=== PATIENT | female | born 1945 | race Caucasian/White ===

== ENCOUNTER → 2022-10-09 | Outpatient (CLI) | payer MEDICARE, SELFPAY ==
--- NOTE | 2022-10-09 08:28 | PCM.PR.HP ---
History of Present Illness Arrival date:: 10/09/22 Arrival time:: 08:30 - Scheduled at 8:00 am Date of Referral:: 10/03/22 Date of Evaluation: 10/09/22 Referring Physician: Dr. Melly Berman Primary Diagnosis: COPD [facility] Breathless Scale: When is the patient short of breath? Y/N Grade: Description of Breathlessness: 0 I only get breathless with strenuous exercise. 1 I get short of breath when hurrying on level ground or walking up a slight hill. 2 On level ground, I walk slower than people of the same age because of breathless, or have to stop for breath when walking at my own pace. 3 I stop for breath after walking 100 yards or after a few minutes on level ground. 4 I am too breathless to leave the house or I am breathless when dressing. Respiratory Problems: Yes: Fatigue, Wheezing, Able to Speak in Full Sentences, Dyspnea with Activity, Dyspnea Lying Down Flat No: Ankle Swelling, Hoarseness, Anxiety, Panic, Dyspnea at Rest, Cough with Secretions - Secretions Thick:: No Thin:: No Cough:: No Hx of Sleep Apnea: No Do you snore loudly (louder than talking or can be heard through closed doors)?: Yes Do you often feel tired/ fatigued/ sleepy during daytime?: No Has anyone observed you stop breathing during sleep?: No History of Hypertension (for STOP score): Yes STOP Results: Positive Home Medications: Home Medications albuterol 90 mcg/actuation aerosol inhaler mcg inhalation 10/09/22 fluticasone fur. 100 mcg-umeclid 62.5 mcg-vilant 25 mcg inhalat.powder (Trelegy Ellipta) 1 inh inhalation DAILY 10/09/22 levothyroxine 112 mcg tablet (Synthroid) 112 mcg PO DAILY 10/09/22 losartan 100 mg-hydrochlorothiazide 12.5 mg tablet (Hyzaar) 1 tab PO DAILY 10/09/22 multivitamin tab 10/09/22 vitamin B complex 1 tab PO DAILY 10/09/22 Allergies/Adverse Reactions: Allergies No Known Allergies Allergy (Verified 10/09/22 08:44) Medical Utilization Do you use a peak flow meter at home?: No Do you use a spacer device with your inhalers?: No Number of hospital visits in the last year?: 1 - vaginal prolapse Number of emergency room visits in the last year?: 0 Do you see your physician on a regular schedule?: Yes How often?: PCP 4 months; Dr. Berman 4 months Advanced Directives - Advanced Directives Power of Cue Worker: Yes Living Will: Yes Advance Directives Information Provided: No Advance Directives on File: No DNR Order?:: No - MOLST See MOLST form: No Past Medical History - Covid-19 Screening Fever: No Unexplained muscle aches: No Current respiratory symptoms: Yes - Related to her COPD Upper respiratory infections symptoms: No Gastro-intestinal symptoms: No [facility]-[place] symptoms: No Has tested positive for COVID-19 in last 30 days: Yes Date of testin10/09/22 - All vaccinated; Had COVID 3 weeks ago (mild case) Had contact w/person w/symptoms or Covid-19 (+) last 14 days: No Has High Risk Exposures ID'd by Health dept/Inf Control team: No 65 years or older:: Yes Lives in Assisted Living facility:: No Has a chronic lung disease or moderate to severe asthma:: Yes Has a serious heart condition:: No Immunocompromised:: No Severely obese (Body Mass Index of 40 or higher):: No Diabetic:: No Has chronic kidney disease undergoing dialysis:: No Has liver disease:: No Medical History: Past Medical History (Last Updated 10/09/22 @ 08:40 by Kevin Curtis CRT, DIESEL MECHANIC APPRENTICE, BS) 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 COPD (chronic obstructive pulmonary disease) J44.9 Former light cigarette smoker (1-9 per day) Z87.891 Hypertension I10 Hypothyroidism E03.9 Leukopenia D72.819 Mixed hyperlipidemia E78.2 Osteoarthritis M19.90 Osteopenia M85.80 Pulmonary nodule R91.1 Uterine prolapse N81.4 Surgical History: Past Surgical History (Last Updated 10/09/22 @ 08:47 by Kevin Curtis, SUSAN, DIESEL MECHANIC APPRENTICE, BS) H/O adenoidectomy Z90.89 H/O colonoscopy Z98.890 History of bilateral ligation of fallopian tubes Z98.51 Hx of tonsillectomy Z90.89 Family History: Family History (Last Updated 10/09/22 @ 08:49 by Kevin Curtis, HERBICIDE SPRAYER, DIESEL MECHANIC APPRENTICE, BS) Father COPD (chronic obstructive pulmonary disease) Sister COPD (chronic obstructive pulmonary disease) Mother Lung cancer Hypertension Social History - Smoking History Smoking Status: Former smoker Years Smokin Packs Smoked per Day: 0.5 Hx Smoking Cessation Date: 06/18/01 Hx Tobacco Use: Yes Hx Smoking Exposure: Yes - Alcohol Use Alcohol Usage: Yes - 2.0 standard drinks; 2-shots liquor per week. - Substance Abuse Hx Substance Use: No - Occupation Occupation (List type of work in comments):: Retired - Hobbies, Recreation, Social Activities Hobbies: Sewing - crocheting, gardening, crafts and enjoy cooking, Exercise - smal weights 3-times per week, aerobics outside work gardening, Other Recreational Activities: I am able to engage in most, but not all activities Functioning ADL/IADL - Current Ability Current Ability: Independent Self-Care (e.g.,grooming, dressing, & bathing), Independent Ambulation, Independent Transfer, Independent Household tasks (e.g., light meal prep, laundry, shopping) - Pt Functioning Prior to Problem Prior Functioning: Self-Care (e.g.,grooming, dressing, & bathing): Independent, Ambulation: Independent, Transfer: Independent, Household tasks (e.g., light meal prep, laundry, shopping): Independent Social Environment - Status Marital Status: - significant other - Current Living Arrangements Living Environment:: Spouse - Children How many children do you have?: 3 Do any of your children live nearby?: Yes - daughter is local to [facility] - Safety Do you feel safe in your surroundings?: Yes - Assistance Do you need any assistance at home?: No Review of Systems Review of Systems: Right click = Denies (Slash). Left click = Reports ([place]) Respiratory: Reports: SOB upon Exertion, Wheezing, Appetite, Normal, Fatigue, Sleep, Normal. Denies: Cough, SOB at Rest, Sputum production, Dizziness/Lightheadedness, PVD, Sexual changes Is Patient Pain Free?: Yes Pain Location: none Pain Level: 0/10 Risk Factor Assessment - Vital Signs Temperature: 98.7 F Pulse Rate: 94 Pulse Rhythm: Regular Respiratory Rate: 18 Pulse Ox: 97 Blood Pressure: 122/80 - Diabetes Nutrition Referral for Diabetes: No - Obesity Height: 5 ft 1 in Weight:: 102 lb Weight in Pounds: 102.0 lbs Body Mass Index (BMI): 19.3 Nutritional Referral for Obesity: No - Physical Activity Physical Inactivity: Recreational activity - Risk Stratification Risk Guidelines: Lowest Risk: Risk Factor for Smoking, Risk Factor for Dyslipidemia, Risk Factor for Diabetes, Risk Factor for Hypertension, Risk Factor for Sedentary Lifestyle, Risk Factor for Depression, Highest Risk: Risk Factor for Obesity - Refer to Nutritional Services for Underweight & Weight Supplements or weight gain. Motivation - Motivation to Participate On a scale of 1 to 10, how prepared are you to commit to attending program?: 10 What do you see as barriers to successfully being able to complete the program?: none What do you see as the benefits of succesfully completing the program? In other words, what do you hope to get out of participating in the program?: improve my health Are there issues you are dealing with that will interfere with completing the program?: Pre-planned vacations that will interuppt her participation Do you have a spouse or signficant other, family or friends who will help support you to complete the program?: Yes Diagnostic Data Review - Pulmonary Function Test FEV1:: 0.59 FVC:: 2.07 FEV1/FVC%:: 28 Gold Classification: GOLD class III(severe COPD)with FEV1/FVC<70, 30%</=FEV1< 50% predicted
--- NOTE | 2022-10-09 08:29 | PCM.PR.TP ---
General Information2 - General Information Admitting Diagnosis: COPD Secondary Diagnosis: Hypertension, Hypothyroidism, Mixed Hyperlipidemai - PFT FEV1:: 0.59 FVC:: 2.07 - 86% FEV1/FVC%:: 28 - Personal Learning Style/Barriers Personal Learning Style:: Audio/Visual Barriers to Learning: Vision impaired - macular degeneration & nerve palsey left eye. Stage of change r/t lifestyle modifications: Contemplation Educational Classes LA: Living with Chronic Lung Disease: Initial Assessment, Breathing Retraining: Initial Assessment, Energy Conservation: Initial Assessment, Nutrition: Initial Assessment - underweight - Education/Goals Individual Counseling: Initial Assessment: Nicotine/Smoking - supportive recently quit smoking, High Blood Pressure LA Patient Goals: Increase muscle strength: Initial Assessment, Experience less dyspnea: Initial Assessment, Improve energy level: Initial Assessment, Participate in home exercise: Initial Assessment, Improve the ability to cope with ADLs: Initial Assessment, Improve knowledge of lung disease: Initial Assessment, Improve diet and nutrition: Initial Assessment, Improve my quality of life: Initial Assessment Exercise - Initial Assessment - Visit Date of Eval: 10/09/22 Session Number:: 0 - Pre-LA evaluation - Problem/Goals Problems: Deconditioning, No regular exercise Goals:: Aerobic exercise 30-60 mins x 12 weeks [36 sessions] - Functional Capacity Test Number of feet walked: 0 - results not avialable - Physician Prescribed Exercise Modalities: Treadmill, Airdyne, NuStep Frequency (days/week): 3 Duration (Minutes):: 30-45 Intensity: 60-80% of age predicted maximum heart rate reserve Current METSs:: 3.0 Target HR:: 108 - THRR 94-108 for 3-4 weeks Resting Blood Pressure: 122/80 EKG Type: Sinus rhythm - Plan Plan and Plan to Review:: Benefits of exercise, Core components of exercise, How to measure dyspnea level, How to monitor dyspnea level, Exercise intensity, Exercise safety guideline, Home exercise guidelines, Carol: 3-4/11-13 Home Exercise Mode: Walking Nutrition/Wt Mgmt - Initial - Visit Date of Eval: 10/09/22 Session Number:: 0 - Pre-LA evaluation - Problems/Goals Problems: Underweight Goals: BMI 21-25 - Weight Management Knowledge Deficit Management of:: Underweight Admit Height:: 5 ft 1 in Admit Weight:: 102 lb Admit BMI:: 19.3 - Intervention Referral to dietitian:: Yes - Medical Nutrition & Supplements Weight Gain Will attend diet classes:: Yes Intervention/Plan: Instruct on ideal BMI & set weight loss goal w/patient - Plan Nutrition Plan: Yes Review BMI or WC & identify target wt & strategies for wt control, Yes Nutrition education class:, Yes Weight control education class: - Nutritonal Service Program Psychosocial - Initial Assess - Visit Date of Eval: 10/09/22 Session Number:: 0 - LA - Problems/Goals History of Emotional Disorders: None - Psychosocial Test Tool Used:: Pulmonary QOL, PHQ-9 Questionnaire - Referral to Behavioral Health PS - Interventions: Yes Attend Stress Management Classes, No Referral to Behavioral Health if PHQ-9 score >9:, No Referral to [facility], No Referral to Physician if PHQ-9 if score is 5-9: - Intervention/Plan: See List Interventions/Plan:: Assess stressors,coping strategies & signs of derpression on admission, Instruct/assist pt to develop coping & personal stress Mgt strategies, Instruct patient to recognize signs & symptoms of depression, Instruct patient to recog Oxygen & Oxygen Titration Init - Visit Date of Eval: 10/09/22 Session Number:: 0 - Pre-LA evaluation - Initial Assessment Oxygen on Admission: None SpO2:: 97 Patient Reports:: No cough - Goal Oxygen & Oxygen Tritration Goals: Effective hypoxemia control - Plans Plan: Monitor SpO2 rest & with exercise Reviewed prescribed medications:: Purpose, Schedule, Side effects, Importance of compliance Instruct correct technique/timing & care:: MDI, DPI, Return demo use of inhaler Bronchial Hygiene Plan: Hydration, When to call MD, Signs/symptoms to report: Core Components - Initial - Visit Date of Eval: 10/09/22 Session Number:: 0 - Pre-LA Evaluation - Hypertension Hypertension Diagnosis:: Hypertension ICD-10 I10 BP: 122/80 [employer] Hypertension Guidelines: [place] [employer] Hypertension Guidelines. Normal BP Less than 120/80. Elevated BP 120/80. Hypertension Stage 1: BP 130-139/80-89. Hypertesnion Stage 2: BP 140 or higher/90 or higher. Hypertension Crisis: BP higher than 180/120 Blood Pressure: 122/80 Outcomes/Goals: Able to verbalize/achieve optimal blood pressure <130/80, Incorporates diet changes & exercise for blood pressure control by DC - Tobacco - Initial Assessment Tobacco Program Goals: Complete smoking cessation. Attend education classes. Improve Knowledge Test score Stages of Change:: Action Learning Barriers: Vision Do you have family support?: Yes Tobacco Use: Cigarettes - Former How long ago did you quit using tobacco products?: Greater than or equal to 6 months ago - Quit smoking 06/18/2001 How many cigarettes do you smoke per day?: 0.5 Years Smokin Do you use smokeless tobacco?: No Smoking Cessation Referral:: No Individual Education/Counseling:: Yes Gave Education Materials For:: Pulmonary Disease, Risk Factors, Breathing Techniques, Medical Compliance, Pulmonary A&P, Exacerbation Signs & Symptoms, Stress & Relaxation - Exacerbation Mgmt & Airway Clearance Problems:: No home O2 Hypoxemia Goals:: Hypoxemia managed - Medication Interventions/plans: Instruct on medication effects & side effects, Review medication list w/patient every two weeks, Instruct importance of taking meds as ordered & assist problem solving Medication Goals: Adherence to prescribed medications, Correct technique/timing & care of MDI, DPI, nebulizer, and spacer. Medications: Yes MDI, Yes DPI Reviewed prescribed medications:: Purpose, Schedule, Side effects, Importance of compliance - Diabetes Diabetes:: No Core Components - 30 DAYS Core Components - 60 DAYS Core Components - 90 DAYS Core Components - Final Patient Health Questionnaire Initial Assessment 1. Little interest or pleasure in doing things: Several days 2. Feeling down, depressed, or hopeless: Not at all 3. Trouble falling or staying asleep, or sleeping too much: Not at all 4. Feeling tired or having little energy: Several days 5. Poor appetite or overeating: Not at all 6. Feeling bad about yourself -- or that you are a failure or have let yourself or your family down: Several days 7. Trouble concentrating on things, such as reading the newspaper or watching television: Not at all 8. Moving or speaking so slowly that other people could have noticed. Or the opposite - being so fidgety or restless that you have been moving around a lot more than usual: Not at all 9. Thoughts that you would be better off , or of hurting yourself in some way: Not at all How difficult have these problems made it for you to do your work, take care of things at home, or get along with other people?: Somewhat difficult Total Score: 3 Knowledge Questionaire (BCKQ) - Information Information: [place] COPD Knowledge Questionnaire (BCKQ) This questionnaire is designed to find out what you know about your lung problem. It should be completed without help form anyone else. This usually takes between 10 and 20 minutes. Your answers will help us to find out what information you need to help you to understand and manage your lung condition. [place] which you think is the correct answer. - Questions b. COPD can only be confirmed by breathing tests: True c. In COPD ther is usually gradual worsening over time: True d. In COPD oxygen levels in the blood are always low: False e. COPD is usually in people less than 40 years old: Don't know Sandra than 80% of COPD cases are caused by cigarette smoking: True b. COPD can be caused by occupational dust exposure: True c. Longstanding asthma can develop into COPD: Don't know d. COPD is commonly an inherited disease: Don't know e. Women are less vunerable to the effects of cigarette than men: Don't know a. Swelling of the ankles is common in COPD:: False b. Fatigue [tiredness] is common in COPD: False c. Wheezing is common in COPD: True d. Crushing chest pain is common in COPD: False e. Rapid weight loss is common in COPD: False a. Severe breathlessness prevents travel by air: False b. Breathlessness can be worsened by eating large meals: True c. Breathlessness means that your oxygen levels are low: False d. Breathlessness is a normal response to exercise: False e. Breathlessness is primarily caused by a narrowing of the bronchial tubes: Don't know a. Coughing phlegm is a common symptom in COPD: False b. Clearing phlegm is more difficult if you get dehydrated: Don't know c. Bronchodilator inhalers can help clear phlegm: True d. Phlegm causes harm if swallowed: Don't know e. Clearing phlegm can be assisted by breathing exercises: Don't know a. Chest infections often cause coughing of blood: Don't know b. Chest infection phlegm usually becomes coloured (ylw/grn): True cExerbations (episodes of worsening) can occur in the absence of chest infection: True d. Chest infections are always accompanied by a high temperature: Don't know e. Steroid tablets should be taken whenever there is an exacerbation: False aWalking excercises better than breathing to improve fitness: Don't know b. Exercise should be avoided as it strains the lungs: False c. Exercise can help maintain your bone density: True d. Exercise helps relieve depression: True e. Exercise should be stopped if it makes you breathless: True a. Stopping smoking will reduce the risk of heart disease: True b. Stopping smoking will slow down further lung damage: False c. Stopping smoking is pointless as the damage is done: False d.Stopping smoking usually results in improved lung function: True eNicotine replacement therapy only available on prescription: False a. A flu jab is recommended every year: True b. You can get flu from having a flu jab: False c. You can only have a flu jab if you are 65 or over: False d. A pneumonia jab protects against all forms of pneumonia: True e.You can have a pneumonia jab and a flu job on the same day: Don't know a. Bronchodilators act quickly (within 10 minutes): Don't know b. Both short & long acting bronchodilators can be taken on the same day: True c. Spacers (volumatic,nebuhaler,serochamber)should be dried w/atowel after washing: Don't know d. A spacer device increases the medication to the lungs: Don't know e. Tremor may be a side effect of bronchodilators: Don't know a. To be effective, the course should last at least 10 days: True b. Excessive use of antibiotics can cause resistant bacteria (germs): True c. Antibiotics will clear all chest infections: False d. Antibiotic treatment is necessary for an exacerbation (worsening) however mild: Don't know e. Seek advice if antibiotics cause severe diarrhoea: True a. Steroid tablets help strengthen muscles: Don't know b. Steroid tablets should be avoided if there is a chest infection: Don't know c. The risk of long-term side effects due to steroids is less w/short courses then w/continous treatment: Don't know dIndigestion is common side effect from using steroid tablet: Don't know e. Steroid tablets can increase your appetite: Don't know a. Inhaled steroids should be stopped if you are given steroid tablets: Don't know bSteroid inhalers can be used for rapid relief breathlessnes: True c. Spacer devices reduce the risk of getting thrush in the mouth: Don't know d.Steroid inhaler should be taken before your bronchodilator: True e. Inhaled steroids improve lung function in COPD: True COPD Assessment Test [CAT] - Questions Never cough = 0, Cough all the time = 5: 1 No phlegm = 0, Chest full of phlegm = 5: 0 No chest tightness = 0, Chest very tight = 5: 0 No breathless w/exertion = 0, Very breathless w/exertion = 5: 5 No limitations w/activity = 0, Very limited w/activity = 5: 1 Confident leaving home = 0, Not at all confident = 5: 0 Sleep soundly = 0, Don't sleep soundly = 5: 0 Lots of energy = 0, No energy at all = 5: 1 Total CAT score:: 8 Self-Efficacy Initial Assessment We would like to know how confident you are in doing certain activities. Please select your confidence level for:: Select your confidence level for the following using the scale 1-10 where 1 is not at all confident and 10 is totally confident. Your score is the average of all 6 responses. Fatigue: How confident are you that you can keep the fatigue caused by your disease from interfering with the things you want to do? Select Number: 2 Physical Discomfort or Pain: How confident are you that you can keep the physical discomfort or pain of your disease from interfering with the things you want to do? Select Number: 2 Emotional Distress: How confident are you that you can keep the emotional distress caused by your disease from interfering with the things you want to do? Select Number: 9 Other Symptoms or Health Problems: How confident are you that you can keep other symptoms or health problems from interfering with the things you want to do? Select Number: 8 Different Tasks and Activities: How confident are you that you can do the different tasks and activities needed to manage your health condition so as to reduce your need to see a doctor? Select Number: 8 Medication: How confident are you that you can do things other than just taking medication to reduce how much your illness affects your everyday life? Select Number: 9 Total Score:: 6 Nutrition Survey - Nutrition Survey Initial Have you lost >10 lbs over the past 2 months without trying?: Yes Are you following a special diet at home for diabetes, low fat, or low salt?: No Are you interested in meeting with a dietitian for help understanding your diet?: No Do you eat less than 3 meals a day?: No Do you eat fatty meats (frank, sausage, ribs, etc), fried foods, desserts, large amounts of salad dressings, margarine, butter, or cheese most days?: No Do you have food allergies? [Enter types in comment field]: No Do you eat in restaurants more than 3 times a week?: No Do you season food with salt, seasoning salt, or garlic salt?: No Do you used canned, boxed, frozen meals, or soups, seasoning packets?: No Total Score:: 1
[2022-10-09 09:18] VITALS: BP 122/80; PULSE 94; RESP 18; TEMP 37.1; O2SAT 97; BMI 19.3
[2022-10-09 09:50] VITALS: BP 122/80; O2SAT 97; BMI 19.3
== END | disposition home or self-care (01) ==
LOC: PR 08:18
PROVIDERS: PCP Internal Medicine
DX: J44.9 Chronic obstructive pulmonary disease, unspecified (principal); E03.9 Hypothyroidism, unspecified; E78.2 Mixed hyperlipidemia

== ENCOUNTER 2022-10-13 10:30 | Outpatient (RCR) | payer MEDICARE, SELFPAY | END 2022-10-15 23:59 | LOC: PR 10:30 | PROVIDERS: PCP Internal Medicine | DX: J44.9 Chronic obstructive pulmonary disease, unspecified (principal) | CPT/HCPCS: 97150; 94626 ==

== ENCOUNTER 2022-11-15 10:30 | Outpatient (RCR) | payer MEDICARE, SELFPAY ==
--- NOTE | 2022-11-08 08:32 | PR.ITP_ITS ---
Exercise - 30-Day Assessment - Visit Date of Eval: 11/08/22 Session Number:: 12 - Physician Prescribed Exercise Modalities: Treadmill, Biodyne, NuStep Frequency (days/week): 3 Duration (Minutes):: 30-45 Intensity: 60-80% of age predicted maximum heart rate reserve Aerobic Exercise [30-60 min 3-7x/week]:: Progressing - mets increasing Current METSs:: 3 Current RPD:: 12-14 Maximum Exercise HR:: 106 Resting Blood Pressure: 138/56 Maximum Exercise Blood Pressure: 138/56 Minimum SpO2 with exercise: 93 EKG Type: SR to ST with occas PVC's Current Minutes of Exercise: 30-45 - Home Exercise Home Exercise:: No Nutrition/Wt Mgmt - 30-Day - Visit Date of Eval: 11/08/22 Session Number:: 12 - Weight Management Height: 5 ft 1 in Weight:: 46.72 kg BMI: 19.4 Weight Goals Progress:: Progressing - Pt is underweight. instructed on ideal BMI Psychosocial - 30-Day - Visit Date of Eval: 11/08/22 Session Number:: 12 - Problems/Goals History of Emotional Disorders: None Oxygen & Oxygen Titration 30D - Visit Date of Eval: 11/08/22 Session Number:: 12 - Reassessment Reassessment- 30 Days: Demonstrate knowledge of O2 Rx at rest & w/exercise Core Components - Initial Core Components - 30 DAYS - Visit Date of Eval: 11/08/22 Session Number:: 12 - Hypertension Hypertension Diagnosis:: Hypertension ICD-10 I10 Resting Blood Pressure:: 138/56 [place] [employer] Hypertension Guidelines: [place] [employer] Hypertension Guidelines. Normal BP Less than 120/80. Elevated BP 120/80. Hypertension Stage 1: BP 130-139/80-89. Hypertesnion Stage 2: BP 140 or higher/90 or higher. Hypertension Crisis: BP higher than 180/120 Peak Exercise Blood Pressure:: 138/56 Outcomes/Goals: Able to verbalize/achieve optimal blood pressure <130/80, Incorporates diet changes & exercise for blood pressure control by DC, Other additional outcomes/goals Interventions/plan: Instruct on optimal blood pressure, hypertension & medications, Instruct on effects of sodium, alcohol, stress, exercise &hypertension, Other additional plan/interventions 30 day Reassessments:: Progressing - encouraged to take meds - Medication Medication list reviewed:: Yes - Diabetes Diabetes:: No - Heart Failure Documenting weight stacie: Yes Core Components - 60 DAYS Core Components - 90 DAYS Core Components - Final Patient Health Questionnaire 30-Day Re-eval Assessment 1. Little interest or pleasure in doing things: Several days 2. Feeling down, depressed, or hopeless: Not at all 3. Trouble falling or staying asleep, or sleeping too much: Not at all 4. Feeling tired or having little energy: Several days 5. Poor appetite or overeating: Not at all 6. Feeling bad about yourself -- or that you are a failure or have let yourself or your family down: Several days 7. Trouble concentrating on things, such as reading the newspaper or watching television: Not at all 8. Moving or speaking so slowly that other people could have noticed. Or the opposite - being so fidgety or restless that you have been moving around a lot more than usual: Not at all 9. Thoughts that you would be better off , or of hurting yourself in some way: Not at all How difficult have these problems made it for you to do your work, take care of things at home, or get along with other people?: Somewhat difficult Total Score: 3 Knowledge Questionaire (BCKQ) - Information Information: [facility] COPD Knowledge Questionnaire (BCKQ) This questionnaire is designed to find out what you know about your lung problem. It should be completed without help form anyone else. This usually take s between 10 and 20 minutes. Your answers will help us to find out what information you need to help you to understand and manage your lung condition. Isac the [place] which you think is the correct answer. Self-Efficacy 30-Day Re-eval Assessment We would like to know how confident you are in doing certain activities. Please select your confidence level for:: Select your confidence level for the following using the scale 1-10 where 1 is not at all confident and 10 is totally confident. Your score is the average of all 6 responses. Fatigue: How confident are you that you can keep the fatigue caused by your disease from interfering with the things you want to do? Select Number: 2 Physical Discomfort or Pain: How confident are you that you can keep the physical discomfort or pain of your disease from interfering with the things you want to do? Select Number: 2 Emotional Distress: How confident are you that you can keep the emotional distress caused by your disease from interfering with the things you want to do? Select Number: 9 Other Symptoms or Health Problems: How confident are you that you can keep other symptoms or health problems from interfering with the things you want to do? Select Number: 8 Different Tasks and Activities: How confident are you that you can do the different tasks and activities needed to manage your health condition so as to reduce your need to see a doctor? Select Number: 8 Medication: How confident are you that you can do things other than just taking medication to reduce how much your illness affects your everyday life? Select Number: 9 Total Score:: 6 Nutrition Survey
[2022-11-08 08:43] VITALS: BP 138/56; O2SAT 93; BMI 19.4
== END 2022-11-15 23:59 ==
LOC: PR 10:30
PROVIDERS: PCP Internal Medicine
DX: J44.9 Chronic obstructive pulmonary disease, unspecified (principal)
CPT/HCPCS: 97150; 94626

== ENCOUNTER 2022-12-15 10:30 | Outpatient (RCR) | payer MEDICARE, SELFPAY ==
[2022-11-08 08:43] VITALS: BMI 19.4
[2022-11-16 00:41] VITALS: BP 138/56
--- NOTE | 2022-12-08 08:31 | PR.ITP_ITS ---
Exercise - 60-Day Assessment - Visit Date of Eval: 12/08/22 Session Number:: 18 - Patient has been absent since 12/01/2022 due to exacerbation, respiratory infection. - Physician Prescribed Exercise Modalities: Treadmill, Biodyne, NuStep Frequency (days/week): 3 Duration (Minutes):: 30-45 Intensity: 60-80% of age predicted maximum heart rate reserve Aerobic Exercise [30-60 min 3-7x/week]:: Progressing Carol-13 Current METSs: 3.5 Target HR:: 108 - THRR 94-108 Current RPD:: 2-3 Maximum Exercise HR:: 106 Resting Blood Pressure: 136/84 Maximum Exercise Blood Pressure: 156/86 Minimum SpO2 with exercise: 92 EKG Type: NSR to sinus tachycardia with rare PAC Current Minutes of Exercise: 35-45 - Home Exercise Home Exercise:: No Nutrition/Wt Mgmt - 60-Day - Visit Date of Eval: 12/08/22 Session Number:: 19 - Weight Management Weight Assessment:: BMI 21 to 25 Height: 5 ft 1 in Weight:: 104 lb 8 oz BMI: 19.7 Weight Goals Progress:: Progressing - meeting with nutritional services Psychosocial - 60-Day - Visit Date of Eval: 12/08/22 Session Number:: 19 - Problems/Goals History of Emotional Disorders: Depression Depression:: Self report - Psychosocial Test Tool Used:: PHQ-9 Questionnaire - Referral to Behavioral Health PS - Interventions: Yes Attend Stress Management Classes, No Referral to Behavioral Health if PHQ-9 score >9:, No Referral to [facility], No Referral to Physician if PHQ-9 if score is 5-9: - Plan Interventions/Plan:: Assess stressors,coping strategies & signs of derpression on admission, Instruct/assist pt to develop coping & personal stress Mgt strategies, Instruct patient to recognize signs & symptoms of depression, Instruct patient to recog Oxygen & Oxygen Titration 60D - Visit Date of Eval: 12/08/22 Session Number:: 19 - Reassessment Reassessment- 60 Days: Demonstrate knowledge of O2 Rx at rest & w/exercise Breath Sounds:: Crackles, Insp. & Exp. Wheezing SpO2:: 97 - room air at rest Exacerbation Date: 12/01/22 - started on antibiotic and tapered dose prednisone Core Components - Initial Core Components - 30 DAYS Core Components - 60 DAYS - Visit Date of Eval: 12/08/22 Session Number:: 19 - Hypertension Hypertension Diagnosis:: Hypertension ICD-10 I10 Resting Blood Pressure:: 136/84 [place] [employer] Hypertension Guidelines: [place] [employer] Hypertension Guidelines. Normal BP Less than 120/80. Elevated BP 120/80. Hypertension Stage 1: BP 130-139/80-89. Hypertesnion Stage 2: BP 140 or higher/90 or higher. Hypertension Crisis: BP higher than 180/120 Peak Exercise Blood Pressure:: 158/80 Change in medication: No Outcomes/Goals: Able to verbalize/achieve optimal blood pressure <130/80, Incorporates diet changes & exercise for blood pressure control by DC Interventions/plan: Instruct on optimal blood pressure, hypertension & medications, Instruct on effects of sodium, alcohol, stress, exercise &hypertension 60 day Reassessments:: Progressing - Exacerbation Mgmt & Airway Clearance Reassessment: Demonstrates knowledge of O2 Rx at rest, Demonstrates knowledge of O2 Rx with exercise Bronchial Hygiene Plan: Yes Pt demonstrates correctly for effective cough, Yes Pt demo correct for improved hydration, Yes Pt demo correct for hand hygiene, Yes Pt demo correct for verbalize when to call MD - Medication Medication list reviewed:: Yes Taking medications 100% of the time:: Met - Diabetes Diabetes:: No - Heart Failure Documenting weight stacie: No Core Components - 90 DAYS Core Components - Final Patient Health Questionnaire 60-Day Re-eval Assessment 1. Little interest or pleasure in doing things: Several days 2. Feeling down, depressed, or hopeless: Not at all 3. Trouble falling or staying asleep, or sleeping too much: Not at all 4. Feeling tired or having little energy: Several days 5. Poor appetite or overeating: Not at all 6. Feeling bad about yourself -- or that you are a failure or have let yourself or your family down: Several days 7. Trouble concentrating on things, such as reading the newspaper or watching television: Not at all 8. Moving or speaking so slowly that other people could have noticed. Or the opposite - being so fidgety or restless that you have been moving around a lot more than usual: Not at all 9. Thoughts that you would be better off , or of hurting yourself in some way: Not at all How difficult have these problems made it for you to do your work, take care of things at home, or get along with other people?: Not difficult at all Total Score: 3 Knowledge Questionaire (BCKQ) - Information Information: [place] COPD Knowledge Questionnaire (BCKQ) This questionnaire is designed to find out what you know about your lung problem. It should be completed without help form anyone else. This usually takes between 10 and 20 minutes. Your answers will help us to find out what information you need to help you to understand and manage your lung condition. Isac the [place] which you think is the correct answer. Self-Efficacy 60-Day Re-eval Assessment We would like to know how confident you are in doing certain activities. Please select your confidence level for:: Select your confidence level for the following using the scale 1-10 where 1 is not at all confident and 10 is totally confident. Your score is the average of all 6 responses. Fatigue: How confident are you that you can keep the fatigue caused by your disease from interfering with the things you want to do? Select Number: 2 Physical Discomfort or Pain: How confident are you that you can keep the physical discomfort or pain of your disease from interfering with the things you want to do? Select Number: 2 Emotional Distress: How confident are you that you can keep the emotional distress caused by your disease from interfering with the things you want to do? Select Number: 9 Other Symptoms or Health Problems: How confident are you that you can keep other symptoms or health problems from interfering with the things you want to do? Select Number: 9 Different Tasks and Activities: How confident are you that you can do the different tasks and activities needed to manage your health condition so as to reduce your need to see a doctor? Select Number: 8 Medication: How confident are you that you can do things other than just taking medication to reduce how much your illness affects your everyday life? Select Number: 9 Total Score:: 6 Nutrition Survey
[2022-12-08 08:40] VITALS: BP 136/84; BP 158/80; O2SAT 97; BMI 19.7
== END 2022-12-15 23:59 ==
LOC: PR 10:30
PROVIDERS: PCP Internal Medicine
DX: J44.9 Chronic obstructive pulmonary disease, unspecified (principal)
CPT/HCPCS: 97150; 94626

== ENCOUNTER → 2022-12-28 | Outpatient (CLI) | payer MEDICARE, SELFPAY ==
[2022-12-08 08:40] VITALS: BMI 19.7
[2022-12-28 12:48] LABS: Bacteria 0 SEEN /hpf (None Seen); Mucous, Urine 0 SEEN /hpf (<or=2+); Red Blood Cells-Urine 0 SEEN /hpf (0-5); Squamous Epithelial Cells - UA 0 SEEN /hpf (5-10); White Blood Cells 0 SEEN /hpf (0-5)
[2022-12-28 15:24] LABS: Absolute Lymphocyte Count 0.91 X10^3/uL (0.83-4.51); Basophil# 0.01 X10^3/uL; Basophil% 0.2 % (0-1); Hematocrit 40.6 % (37-47); Hemoglobin 13.7 g/dL (12.0-15.0); Lymphocyte # 0.91 X10^3/ul (0.83-4.51); Lymphocyte % 20.3 % (19-41); Mean Corp Hgb Conc 33.7 g/dL (32-36); Mean Corpuscular Volume 91.9 fL (81-99); Mean Platelet Vol. 9.2 fl (6.2-12.0); Monocyte# 0.54 X10^3/uL; NRBC Flagged by Analyzer 0 % (0-5); Neutrophil # 3.02 X10^3/uL (2.7-7.7); Neutrophil % 67.3 % (47-70); Platelet Count 454 K/mm3 (150-450); RBC Distribution Width CV 13.8 % (11.6-14.6); RBC Distribution Width SD 47.2 fl (35.1-43.9); Red Blood Count 4.42 M/mm3 (4.2-5.4); White Blood Count 4.5 K/mm3 (4.4-11.0)
[2022-12-28 15:29] LABS: Color, Urine Yellow (Yellow); Glucose, Dipstick Normal (Normal); Ketone-Dipstick Negative (Negative); Leukocyte Esterase-Dipstick 25 /ul (Negative); Nitrite-Dipstick Negative (Negative); Occult Blood-Urine Negative /ul (Negative); Protein-Dipstick Negative (Negative); Specific Gravity, Urine 1.015 (1.002-1.030); Urine Bilirubin Dipstick Negative (Negative); Urine Clarity Clear (Clear); Urine Urobilinogen Normal (Normal)
[2022-12-28 15:41] LABS: Vitamin D,25 Hydroxy 65.6 ng/mL
[2022-12-28 15:55] LABS: AST(SGOT) 26 U/L (15-37); Alanine Aminotransfer ALT/SGPT 26 U/L (13-56); Albumin, Serum 3.5 g/dL (3.2-5.0); Alkaline Phosphatase 80 U/L (45-117); Anion Gap 6 (5-15); BUN 13 mg/dL (7-18); BUN/Creat Ratio 21.1 RATIO (10-20); Calcium,Total 9.1 mg/dL (8.5-10.1); Chloride 95 mmol/L (98-107); Cholesterol 198 mg/dL (200); Creatinine, Serum 0.62 mg/dL (0.55-1.02); EST Glomerular Filtration Rate 100 mL/min (>60); Est Glom Filt Rate - Afr Amer 121 mL/min (>60); Globulin 3.5 g/dL (2.2-4.2); Glucose 91 mg/dL (74-106); High Density Lipoprotein 103 mg/dL; Potassium 3.9 mmol/L (3.5-5.1); Sodium Level 132 mmol/L (136-145); T4 Free Direct 1.53 ng/dL (0.76-1.46); Thyroid Stim Hormone (TSH) 0.66 uIU/mL (0.358-3.74); Triglycerides 49 mg/dL; Very Low Density Lipoprotein 10 mg/dL (5-40)
== END | disposition home or self-care (01) ==
LOC: MTLAB 12:42
PROVIDERS: PCP Internal Medicine; Visit Provider Family Medicine
DX: E03.9 Hypothyroidism, unspecified (principal); I10 Essential (primary) hypertension; E55.9 Vitamin D deficiency, unspecified
CPT/HCPCS: 80053; 80061; 81001; 82306; 84439; 84443; 85025

== ENCOUNTER → 2023-01-05 | Outpatient (CLI) | payer MEDICARE, SELFPAY ==
[2022-12-08 08:40] VITALS: BMI 19.7
[2023-01-05 11:30] LABS: Anion Gap 5 (5-15); BUN 12 mg/dL (7-18); BUN/Creat Ratio 17.2 RATIO (10-20); Calcium,Total 9.1 mg/dL (8.5-10.1); Chloride 103 mmol/L (98-107); EST Glomerular Filtration Rate 87 mL/min (>60); Est Glom Filt Rate - Afr Amer 105 mL/min (>60); Glucose 102 mg/dL (74-106); Potassium 4.1 mmol/L (3.5-5.1); Sodium Level 138 mmol/L (136-145)
== END | disposition home or self-care (01) ==
LOC: MTLAB 08:07
PROVIDERS: PCP Family Medicine; Referring Provider Family Medicine; Visit Provider Family Medicine
DX: E87.1 Hypo-osmolality and hyponatremia (principal)
CPT/HCPCS: 36415; 80048

== ENCOUNTER 2023-01-15 10:30 | Outpatient (RCR) | payer MEDICARE, SELFPAY ==
[2022-12-08 08:40] VITALS: BMI 19.7
[2022-12-16 01:26] VITALS: BP 136/84; BP 158/80
== END 2023-01-15 23:59 ==
LOC: PR 10:30
PROVIDERS: PCP Internal Medicine
DX: J44.9 Chronic obstructive pulmonary disease, unspecified (principal)
CPT/HCPCS: 97150; 94626

== ENCOUNTER → 2023-01-24 | Outpatient (CLI) | payer MEDICARE, SELFPAY ==
[2022-12-08 08:40] VITALS: BMI 19.7
[2023-01-24 11:49] VITALS: PULSE 100; PULSE 104; PULSE 105; PULSE 108; PULSE 86; PULSE 89; O2SAT 91; O2SAT 92; O2SAT 93; O2SAT 94; O2SAT 95
--- NOTE | 2023-01-25 10:04 | PCM.PSN.6M ---
PSN 6 Minute Walk Test 6 Minute Walk Test 6 Minute Walk Test: 6 Minute Walk Test PSN:6-Minute Walk Test Start: 01/24/23 11:48 Freq: Status: Active Protocol: [id number] Document 01/24/23 11:49 DOROTHY (Rec: 01/24/23 11:51 DOROTHY [id number]) 6 Minute Walk Test Date Performed 01/24/23 Time Performed 11:30 Height 5 ft 2 in Weight: 102 lb Weight in Pounds 102.[address]: Ollie Berman Assistive device used: None Pre-test Oxygen Delivery Method Room Air Pulse Ox 95 Pulse Rate (60-100) 86 Dyspnea Carol Scale (0-10) 1 Exertion Carol Scale (6-20) 6 1st minute Oxygen Delivery Method Room Air Pulse Ox 94 Pulse Rate (60-100) 89 2nd minute Oxygen Delivery Method Room Air Pulse Ox 93 Pulse Rate (60-100) 100 3rd minute Oxygen Delivery Method Room Air Pulse Ox 92 Pulse Rate (60-100) 104 H Reported Symptoms Increased Work of Breathing 4th minute Oxygen Delivery Method Room Air Pulse Ox 91 Pulse Rate (60-100) 108 H Reported Symptoms Increased Work of Breathing 5th minute Oxygen Delivery Method Room Air Pulse Ox 91 Pulse Rate (60-100) 108 H Number of Rests Taken 1 Reported Symptoms Increased Work of Breathing 6th minute Oxygen Delivery Method Room Air Pulse Ox 92 Pulse Rate (60-100) 105 H Dyspnea Carol Scale (0-10) 5 Exertion Carol Scale (6-20) 13 Reported Symptoms Increased Work of Breathing Post-test Oxygen Delivery Method Room Air Pulse Ox 95 Pulse Rate (60-100) 89 Full Laps Walked 10 Partial Lap, Number of Tiles Walked 19 Total Distance Walked (ft) 609 Interpretation Interpretation: The patient ambulated 609 feet over the course of 6 minutes beginning on room air without assistive devices. Pretesting oxygen saturation was noted to be 95% on room air. With ambulation, the hong oxygen saturation was 91%. There was no significant exertional oxygen desaturation. Recommendations Recommendations: There is no indication for the use of supplemental oxygen at this time.
== END | disposition home or self-care (01) ==
LOC: PSN 11:22
PROVIDERS: PCP Family Medicine; Referring Provider Internal Medicine Critical Care Medicine; Visit Provider Internal Medicine Critical Care Medicine
DX: J44.9 Chronic obstructive pulmonary disease, unspecified (principal)
CPT/HCPCS: 94618; 97150; 94626

== ENCOUNTER → 2023-01-25 | Outpatient (CLI) | payer MEDICARE, SELFPAY ==
[2022-12-08 08:40] VITALS: BMI 19.7
--- NOTE | 2023-01-26 10:06 | PFT ---
INTRODUCTION: The patient is a 77-year-old female who presents for pulmonary function studies secondary to a diagnosis of COPD. Respiratory therapy reported good patient effort. Bronchodilators were used during testing. INTERPRETATION: Forced expiration spirometry demonstrates the presence of a very severe large airways obstructive ventilatory defect. There was no significant response to aerosolized bronchodilators. Spirograms are of good quality but do not plateau indicating slow emptying of the lungs. Body plethysmography was performed and revealed evidence of hyperinflation and air trapping. Diffusing capacity by single breath CO is reduced to 41% of predicted. IMPRESSION: Irreversible very severe large airways obstructive ventilatory defect with associated hyperinflation, air trapping and symmetric reduction in diffusing capacity.
== END | disposition home or self-care (01) ==
LOC: PSN 09:31
PROVIDERS: PCP Family Medicine; Referring Provider Internal Medicine Critical Care Medicine; Visit Provider Internal Medicine Critical Care Medicine
DX: J44.9 Chronic obstructive pulmonary disease, unspecified (principal)
CPT/HCPCS: 94060; 94726; 94729

== ENCOUNTER 2023-01-26 10:30 | Outpatient (RCR) | payer MEDICARE, SELFPAY ==
[2022-12-08 08:40] VITALS: BMI 19.7
[2023-01-16 00:37] VITALS: BP 136/84; BP 158/80
== END 2023-02-15 23:59 ==
LOC: PR 10:30
PROVIDERS: PCP Family Medicine
DX: J44.9 Chronic obstructive pulmonary disease, unspecified (principal)
CPT/HCPCS: 97150; 94626

== ENCOUNTER → 2023-03-06 | Outpatient (CLI) | payer MEDICARE, SELFPAY ==
[2022-12-08 08:40] VITALS: BMI 19.7
[2023-03-06 10:35] LABS: Bacteria 0 SEEN /hpf (None Seen); Mucous, Urine 0 SEEN /hpf (<or=2+); Red Blood Cells-Urine 0 SEEN /hpf (0-5); Squamous Epithelial Cells - UA 0 SEEN /hpf (5-10); White Blood Cells 0 SEEN /hpf (0-5)
[2023-03-06 12:05] LABS: Color, Urine Yellow (Yellow); Glucose, Dipstick Normal (Normal); Ketone-Dipstick Negative (Negative); Leukocyte Esterase-Dipstick Negative /ul (Negative); Nitrite-Dipstick Negative (Negative); Occult Blood-Urine Negative /ul (Negative); Protein-Dipstick Negative (Negative); Urine Bilirubin Dipstick Negative (Negative); Urine Clarity Clear (Clear); Urine Urobilinogen Normal (Normal)
[2023-03-06 12:18] LABS: Absolute Lymphocyte Count 0.67 X10^3/uL (0.83-4.51); Absolute Neutrophil Count 3.6 X10^3/uL (2.0-7.7); Basophil# 0.01 X10^3/uL; Basophil% 0.2 % (0-1); Hematocrit 42.2 % (37-47); Hemoglobin 13.9 g/dL (12.0-15.0); Lymphocyte # 0.67 X10^3/ul (0.83-4.51); Mean Corp Hgb Conc 32.9 g/dL (32-36); Mean Corpuscular Hgb 30.8 pg (27.0-32.0); Mean Corpuscular Volume 93.4 fL (81-99); Mean Platelet Vol. 9.4 fl (6.2-12.0); Monocyte# 0.53 X10^3/uL; Monocyte% 11.1 % (0-10); NRBC Flagged by Analyzer 0 % (0-5); Neutrophil # 3.56 X10^3/uL (2.7-7.7); Neutrophil % 74.5 % (47-70); Platelet Count 390 K/mm3 (150-450); RBC Distribution Width CV 14.2 % (11.6-14.6); RBC Distribution Width SD 49.1 fl (35.1-43.9); Red Blood Count 4.52 M/mm3 (4.2-5.4); White Blood Count 4.8 K/mm3 (4.4-11.0)
[2023-03-06 12:39] LABS: Vitamin D,25 Hydroxy 66.3 ng/mL
[2023-03-06 12:49] LABS: ALB/GLOB Ratio 1.1 RATIO (0.9-2.4); AST(SGOT) 23 U/L (15-37); Alanine Aminotransfer ALT/SGPT 28 U/L (13-56); Albumin, Serum 3.8 g/dL (3.2-5.0); Alkaline Phosphatase 96 U/L (45-117); Anion Gap 6 (5-15); BUN 10 mg/dL (7-18); BUN/Creat Ratio 15.7 RATIO (10-20); Calcium,Total 8.9 mg/dL (8.5-10.1); Chloride 101 mmol/L (98-107); Cholesterol 205 mg/dL (200); Creatinine, Serum 0.64 mg/dL (0.55-1.02); EST Glomerular Filtration Rate 96 mL/min (>60); Est Glom Filt Rate - Afr Amer 117 mL/min (>60); Globulin 3.5 g/dL (2.2-4.2); Glucose 100 mg/dL (74-106); High Density Lipoprotein 111 mg/dL; Potassium 3.7 mmol/L (3.5-5.1); Protein, Total 7.3 g/dL (6.4-8.2); Sodium Level 138 mmol/L (136-145); T4 Free Direct 1.34 ng/dL (0.76-1.46); Thyroid Stim Hormone (TSH) 3.21 uIU/mL (0.358-3.74); Triglycerides 61 mg/dL; Very Low Density Lipoprotein 12 mg/dL (5-40)
== END | disposition home or self-care (01) ==
LOC: MTLAB 10:31
PROVIDERS: PCP Family Medicine; Referring Provider Family Medicine; Visit Provider Family Medicine
DX: I10 Essential (primary) hypertension (principal); E03.9 Hypothyroidism, unspecified; E55.9 Vitamin D deficiency, unspecified
CPT/HCPCS: 36415; 80053; 80061; 81001; 82306; 84439; 84443; 85025

== ENCOUNTER → 2023-05-18 | Outpatient (CLI) | payer MEDICARE, SELFPAY ==
[2022-12-08 08:40] VITALS: BMI 19.7
[2023-05-18 11:52] LABS: Bacteria 0 SEEN /hpf (None Seen); Mucous, Urine 0 SEEN /hpf (<or=2+); Red Blood Cells-Urine 0 SEEN /hpf (0-5); Squamous Epithelial Cells - UA 0 SEEN /hpf (5-10); White Blood Cells 0 SEEN /hpf (0-5)
[2023-05-18 15:33] LABS: Absolute Lymphocyte Count 0.95 X10^3/uL (0.83-4.51); Absolute Neutrophil Count 4.3 X10^3/uL (2.0-7.7); Basophil# 0.01 X10^3/uL; Basophil% 0.2 % (0-1); Hematocrit 43.4 % (37-47); Hemoglobin 13.9 g/dL (12.0-15.0); Lymphocyte # 0.95 X10^3/ul (0.83-4.51); Lymphocyte % 16.2 % (19-41); Mean Corpuscular Hgb 30.3 pg (27.0-32.0); Mean Corpuscular Volume 94.6 fL (81-99); Mean Platelet Vol. 9.8 fl (6.2-12.0); Monocyte# 0.63 X10^3/uL; Monocyte% 10.8 % (0-10); NRBC Flagged by Analyzer 0 % (0-5); Neutrophil # 4.25 X10^3/uL (2.7-7.7); Neutrophil % 72.5 % (47-70); Platelet Count 388 K/mm3 (150-450); RBC Distribution Width CV 14.5 % (11.6-14.6); RBC Distribution Width SD 50.2 fl (35.1-43.9); Red Blood Count 4.59 M/mm3 (4.2-5.4); White Blood Count 5.9 K/mm3 (4.4-11.0)
[2023-05-18 15:41] LABS: Color, Urine Yellow (Yellow); Glucose, Dipstick Normal (Normal); Ketone-Dipstick Negative (Negative); Leukocyte Esterase-Dipstick 25 /ul (Negative); Nitrite-Dipstick Negative (Negative); Occult Blood-Urine Negative /ul (Negative); Protein-Dipstick Negative (Negative); Specific Gravity, Urine 1.015 (1.002-1.030); Urine Bilirubin Dipstick Negative (Negative); Urine Clarity Clear (Clear); Urine Urobilinogen Normal (Normal)
[2023-05-18 16:00] LABS: ALB/GLOB Ratio 1.2 RATIO (0.9-2.4); AST(SGOT) 25 U/L (15-37); Alanine Aminotransfer ALT/SGPT 27 U/L (13-56); Albumin, Serum 3.8 g/dL (3.2-5.0); Alkaline Phosphatase 100 U/L (45-117); Anion Gap 5 (5-15); BUN 15 mg/dL (7-18); BUN/Creat Ratio 25.5 RATIO (10-20); Calcium,Total 8.8 mg/dL (8.5-10.1); Chloride 102 mmol/L (98-107); Creatinine, Serum 0.59 mg/dL (0.55-1.02); EST Glomerular Filtration Rate 105 mL/min (>60); Est Glom Filt Rate - Afr Amer 127 mL/min (>60); Globulin 3.3 g/dL (2.2-4.2); Glucose 86 mg/dL (74-106); Potassium 3.6 mmol/L (3.5-5.1); Protein, Total 7.1 g/dL (6.4-8.2); Sodium Level 138 mmol/L (136-145); T4 Free Direct 1.39 ng/dL (0.76-1.46); Thyroid Stim Hormone (TSH) 4.69 uIU/mL (0.358-3.74)
[2023-05-18 16:14] LABS: Vitamin D,25 Hydroxy 67.1 ng/mL
== END | disposition home or self-care (01) ==
LOC: MFPLAB 11:49
PROVIDERS: PCP Family Medicine; Visit Provider Family Medicine
DX: E55.9 Vitamin D deficiency, unspecified (principal); E03.9 Hypothyroidism, unspecified; I10 Essential (primary) hypertension
CPT/HCPCS: 36415; 80053; 81001; 82306; 84439; 84443; 85025

== ENCOUNTER → 2023-07-05 | Outpatient (CLI) | payer MEDICARE, SELFPAY ==
[2022-12-08 08:40] VITALS: BMI 19.7
[2023-07-05 16:42] LABS: Anion Gap 10 (5-15); BUN 14 mg/dL (7-18); BUN/Creat Ratio 20.2 RATIO (10-20); Calcium,Total 9.3 mg/dL (8.5-10.1); Chloride 95 mmol/L (98-107); Creatinine, Serum 0.69 mg/dL (0.55-1.02); EST Glomerular Filtration Rate 87 mL/min (>60); Est Glom Filt Rate - Afr Amer 105 mL/min (>60); Glucose 135 mg/dL (74-106); Potassium 3.3 mmol/L (3.5-5.1); Sodium Level 132 mmol/L (136-145)
== END | disposition home or self-care (01) ==
LOC: MTLAB 11:26
PROVIDERS: PCP Family Medicine; Referring Provider Family Medicine; Visit Provider Family Medicine
DX: I10 Essential (primary) hypertension (principal)
CPT/HCPCS: 36415; 80048

== ENCOUNTER → 2023-07-20 | Outpatient (CLI) | payer MEDICARE, SELFPAY ==
[2022-12-08 08:40] VITALS: BMI 19.7
--- NOTE | 2023-07-20 14:27 | VDLE_ITS ---
Reason For Study: BLE EDEMA RIGHT LEFT GSV is normal. GSV is normal. CFV is compressible, spontaneous, phasic, CFV is compressible, spontaneous, phasic, competent and demonstrates normal competent, and demonstrates normal augmentation. augmentation. FV is compressible, spontaneous, phasic, FV is compressible, spontaneous, phasic, competent and demonstrates normal competent and demonstrates normal augmentation. augmentation. POP V is compressible, spontaneous, phasic, POP V is compressible, spontaneous, phasic, competent and demonstrates normal competent and demonstrates normal augmentation. augmentation. T/P Trunk is compressible. T/P Trunk is compressible. PTV is compressible. PTV is compressible. RT PerV is compressible. LT PerV is compressible. Non Vascularized anechoic area measuring approximately 2.55cm x 1.05cm is noted in the Rt POP Fossa. Procedure This is a venous duplex using B-mode, color flow and spectral Doppler. Exam performed in department. The exam was diagnostic. VL/Venous Duplex US - Deepak Extrem Interpretation Summary Deep veins of the lower extremities are bilaterally patent and compressible seg mentally. There is no evidence of deep vein thrombosis on either side. Valvular competence appears in tact within the proximal deep venous systems bilaterally. The great saphenous veins appear bila terally patent and compressible segmentally. A non-vascular, hypoechoic structure is noted in the right popliteal space, measuring 2.55 cm x 1.05 cm. This probably represents a popliteal cyst. Clinical correlation is advised. Ordering Physician: Don Bautista Referring Physician: Don Bautista Performed By: Winston Valdez, RVT
[2023-07-20 16:55] LABS: Anion Gap 3 (5-15); BUN 13 mg/dL (7-18); BUN/Creat Ratio 21.7 RATIO (10-20); Calcium,Total 9.3 mg/dL (8.5-10.1); Chloride 94 mmol/L (98-107); EST Glomerular Filtration Rate 103 mL/min (>60); Est Glom Filt Rate - Afr Amer 124 mL/min (>60); Glucose 103 mg/dL (74-106); Potassium 3.6 mmol/L (3.5-5.1); Sodium Level 128 mmol/L (136-145)
--- OUTSIDE RECORDS SUMMARY | 2023-07-20 17:28 | XMS RPT_ITS | CCD ---
Author Name Unknown Address [address] [place] [address] Organization [facility] Care Team Providers Care Loss Control Technician Name Role Phone Almas LI, Harvey Pat Primary Care Provider [phone] FABIO HENNESSY Referring Unavailable COBURN, HARVEY Pat Primary Care Unavailable COBURN, HARVEY Pat Primary Care Unavailable OLDER, ADRIANNA Attending Unavailable COBURN, HARVEY Pat Primary Care Unavailable COBURN, HARVEY Pat Referring Unavailable COBURN, HARVEY Pat Primary Care Unavailable COBURN, HARVEY Pat Primary Care Unavailable MARELY, MELLY ZARATE Attending Unavailable MARELY, MELLY ZARATE Referring Unavailable MELLY BERMAN Referring Unavailable COBURN, HARVEY Pat Primary Care Unavailable COBURN, HARVEY Pat Primary Care Unavailable COBURN, HARVEY Pat Attending Unavailable OLDER, ADRIANNA Referring Unavailable COBURN, HARVEY Pat Primary Care Unavailable OLDER, ADRIANNA Attending Unavailable COBURN, HARVEY Pat Referring Unavailable COBURN, HARVEY Pat Primary Care Unavailable COBURN, HARVEY Pat Attending Unavailable COBURN, HARVEY Pat Primary Care Unavailable Medications Current Medications Medication Drug Class(es) Dates Sig (Normalized) Sig (Original) amoxicillin 875 mg / clavulanate 125 mg oral tablet (2 sources) Penicillin-class Antibacterial Start: 12-06-2022 End: 12-13-2022 take 1 tablet by mouth twice daily amoxicillin-clav ulanic acid (AUGMENTIN) 875-125 mg per tablet Take 1 tablet by mouth twice daily for 7 days. 14 tablet 0 12/06/2022 12/13/2022 Active Completed/Discontinued Medications Medication Drug Class(es) Dates Sig (Normalized) Sig (Original) [id number] 200 actuat albuterol 0.09 mg/actuat metered dose inhaler (13 sources) beta2-Adrenergic Agonist Start: 10-03-2022 take 2 puff(s) by inhalation every four hours as needed for wheezing albuterol HFA (VENTOLIN HFA) 90 mcg/actuation inhaler Indications: Stage 3 severe COPD by GOLD classification (HCC) Inhale 2 Puffs as instructed every 4 hours as needed for wheezing/shortness of breath. 1 Each 5 10/03/2022 Active Problems Active Problems Problem Classification Problem Date Documented Date Episodic/Chronic Cardiac dysrhythmias (2 sources) Tachycardia; Translations: [Tachycardia, unspecified] Onset: 12-11-2022 Episodic Chronic obstructive pulmonary disease and bronchiectasis (17 sources) Emphysematous bronchitis; Translations: [Chronic obstructive pulmonary disease, unspecified] Onset: 07-25-2022 Chronic Essential hypertension (16 sources) Hypertensive disorder; Translations: [Essential (primary) hypertension] Onset: 07-25-2022 07-25-2022 Chronic Fluid and electrolyte disorders (1 source) Hypo-osmolality and hyponatremia; Translations: [Hyponatremia] Onset: 10-16-2022 Episodic Other lower respiratory disease (1 source) Cough; Translations: [Acute cough] Episodic Other lower respiratory disease (1 source) Lower respiratory tract infection; Translations: [Unspecified acute lower respiratory infection] Episodic Other nutritional; endocrine; and metabolic disorders (1 source) Weight loss; Translations: [Abnormal weight loss] Episodic Thyroid disorders (15 sources) Hypothyroidism; Translations: [Hypothyroidism, unspecified] Onset: 07-25-2022 07-25-2022 Chronic Viral infection (1 source) Disease caused by 2019-nCoV; Translations: [COVID-19] Episodic Past or Other Problems Problem Classification Problem Date Documented Da te Episodic/Chronic Other lower respiratory disease (12 sources) Solitary nodule of lung; Translations: [Solitary pulmonary nodule] Onset: 07-25-2022 07-25-2022 Episodic Results Test Name Value Interpretation Reference Range Facil ity Vital Signs Date Time Vital Sign Value Performing Clinician Patience conrad 12-11-2022 17:05-0400 Diastolic blood pressure 84 mm[Hg] Harvey Coburn MD Work Phone: [facility] 12-11-2022 17:05-0400 Heart rate 85 /min Harvey Coburn MD Work Phone: [facility] 12-11-2022 17:05-0400 Systolic blood pressure 161 mm[Hg] Harvey Coburn MD Work Phone: [facility] 12-11-2022 16:54-0400 Body weight 46.72 kg Harvey Coburn MD Work Phone: [facility] 12-11-2022 16:54-0400 SaO2% (BldA) [Mass fraction] 96 % Harvey Cbourn MD Work Phone: [facility] 12-06-2022 09:07-0400 Body temperature 97.81 [degF] Fabio Gerhard FLOATING LABOR GANG SUPERVISOR.GROUP UNDERWRITER Work Phone: [facility] 12-06-2022 09:07-0400 Body weight 46.18 kg Fabio Hennessy FLOATING LABOR GANG SUPERVISOR.GROUP UNDERWRITER Work Phone: [facility] 12-06-2022 09:07-0400 Diastolic blood pressure 78 mm[Hg] Fabio Gerhard FLOATING LABOR GANG SUPERVISOR.GROUP UNDERWRITER Work Phone: [facility] 12-06-2022 09:07-0400 Heart rate 87 /min Fabio Gerhard FLOATING LABOR GANG SUPERVISOR.GROUP UNDERWRITER Work Phone: [facility] 12-06-2022 09:07-0400 Respiratory rate 19 /min Fabio Gerhard FLOATING LABOR GANG SUPERVISOR.GROUP UNDERWRITER Work Phone: [facility] 12-06-2022 09:07-0400 SaO2% (BldA) [Mass fraction] 98 % Fabio Hennessy FLOATING LABOR GANG SUPERVISOR.GROUP UNDERWRITER Work Phone: [facility] 12-06-2022 09:07-0400 Systolic blood pressure 158 mm[Hg] Fabio Gerhard FLOATING LABOR GANG SUPERVISOR.GROUP UNDERWRITER Work Phone: [facility] 10-23-2022 13:30-0400 Diastolic blood pressure 60 mm[Hg] Adrianna Older FLOATING LABOR GANG SUPERVISOR.GROUP UNDERWRITER Work Phone: [facility] 10-23-2022 13:30-0400 Systolic blood pressure 110 mm[Hg] Adrianna Older FLOATING LABOR GANG SUPERVISOR.GROUP UNDERWRITER Work Phone: [facility] 10-23-2022 13:13-0400 Body weight 46.72 kg Adrianna Older FLOATING LABOR GANG SUPERVISOR.GROUP UNDERWRITER Work Phone: [facility] 10-23-2022 13:13-0400 Heart rate 101 /min Adrianna Older FLOATING LABOR GANG SUPERVISOR.GROUP UNDERWRITER Work Phone: [facility] 10-23-2022 13:13-0400 Respiratory rate 22 /min Adrianna Older FLOATING LABOR GANG SUPERVISOR.GROUP UNDERWRITER Work Phone: [facility] 10-23-2022 13:13-0400 SaO2% (BldA) [Mass fraction] 95 % Adrianna Older FLOATING LABOR GANG SUPERVISOR.GROUP UNDERWRITER Work Phone: [facility] 09-18-2022 15:52-0400 Body temperature 97.11 [degF] Torsten Espitia MD Work Phone: [facility] 07-25-2022 11:51-0500 Diastolic blood pressure 80 mm[Hg] Adrianna Older FLOATING LABOR GANG SUPERVISOR.GROUP UNDERWRITER Work Phone: [facility] 07-25-2022 11:51-0500 Systolic blood pressure 132 mm[Hg] Adrianna Older FLOATING LABOR GANG SUPERVISOR.GROUP UNDERWRITER Work Phone: [facility] 07-25-2022 10:38-0500 Body height 153.7 cm Adrianna Older FLOATING LABOR GANG SUPERVISOR.GROUP UNDERWRITER Work Phone: [facility] 07-25-2022 10:38-0500 Body weight 46.27 kg Adrianna Older FLOATING LABOR GANG SUPERVISOR.GROUP UNDERWRITER Work Phone: [facility] 07-25-2022 10:38-0500 Heart rate 88 /min Adrianna Older FLOATING LABOR GANG SUPERVISOR.GROUP UNDERWRITER Work Phone: [facility] 07-25-2022 10:38-0500 Respiratory rate 18 /min Adrianan Older FLOATING LABOR GANG SUPERVISOR.GROUP UNDERWRITER Work Phone: [facility] Encounters Encounter Date Encounter Type Care Provider Facility Start: 12-11-2022 End: 12-11-2022 ambulatory HARVEY COBURN Facility:[facility] Start: 12-11-2022 End: 12-11-2022 Patient encounter procedure Harvey Coburn MD Work Phone: [facility] Procedures Date Procedure Procedure Detail Performing Clinician Start: 12-11-2022 Ecg routine ecg w/le ast 12 lds i&r only [facility] Provider Start: 12-06-2022 Radiologic exam ches t 2 views Fabio Hennessy RAYMOND.GROUP UNDERWRITER Work Phone: Start: 07-25-2021 Lipid panel [facility] Provid er Start: 07-25-2021 Thyrotropin [Units/v olume] in Serum or Plasma [facility] Provider Plan of Treatment Date Care Activity Detail Author Start: 10-16-2025 DIABETES SCREEN DIABETES SCREEN [facility] Start: 08-16-2025 DIABETES SCREEN DIABETES SCREEN [facility] Start: 12-12-2023 ANNUAL PCP TEAM TRANSPORT ASSISTANT JUANY DISEASE VISIT ANNUAL PCP TEAM CHRONIC DISEASE VISIT [facility] Start: 12-12-2023 COVID-19 VACCINE (6 - Booster) COVID-19 VACCINE (6 - Booster) [facility] Immunizations Immunization Date Immunization Notes Care Provider Fa cility 06-19-2022 influenza, high dose seasonal, preservative-free Melly Berman MD Work Phone: [facility] 02-24-2022 COVID-19 original vaccine, booster dose, monovalent (MODERNA) Melly Berman MD Work Phone: [facility] Work Phone: 10-23-2021 COVID-19 original vaccine, full dose, monovalent (MODERNMichael) Melly Berman MD Work Phone: [facility] 04-19-2021 COVID-19 original vaccine, full dose, monovalent (MODERNMichael) Melly Berman MD Work Phone: [facility] 09-04-2020 COVID-19 original vaccine, full dose, monovalent (MODERNA) Melly Berman MD Work Phone: [facility] 07-23-2020 COVID-19 vaccine (UNSPECIFIED) Melly Berman MD Work Phone: [facility] 06-17-2018 zoster vaccine, live Cristhian Berman MD Work Phone: [facility] 01-02-2017 pneumococcal conjuga te vaccine, 13 valent Melly Berman MD Work Phone: [facility] 06-18-2015 pneumococcal polysaccharide vaccine, 23 valent Melly Berman MD Work Phone: [facility] 06-18-2012 TD(adult) unspecifie d formulation Melly Berman MD Work Phone: [facility] 09-26-2010 zoster vaccine, live Cristhian Berman MD Work Phone: [facility] Payers Date Payer Category Payer Medicare [id number] 2021 Medicare [id number] Social History Date Type Detail Facility Start: 07-25-2022 Tobacco smoking stat us [facility] Ex-smoker [facility] Work Phone: End: 06-18-2001 History of tobacco use Current smoker [facility] Work Phone: End: 06-18-2001 History of tobacco use Cigarette Smoker [facility] Work Phone: Start: 07-25-2022 End: 12-11-2022 Cigarettes smoked current (pack per day) - Reported 0.5 [facility] Start: 07-25-2022 Tobacco use and exposure Smoke less tobacco non-user [facility] Work Phone: Start: 07-25-2022 End: 12-11-2022 Alcohol intake Current drinker of alcohol (finding) [facility] Start: 1945 Sex Assigned At Not on file C [facility] Start: 08-28-2022 History SDOH Alcohol Frequency 4 [facility] Start: 08-28-2022 End: 10-16-2022 History SDOH Alcohol Std Drinks 1 [facility] Start: 10-16-2022 History SDOH Alcohol Frequency 2 [facility] Start: 10-16-2022 History SDOH Social Connections Phone 5 [facility] Start: 10-16-2022 History SDOH Social Connections Living 8 [facility] Start: 10-16-2022 History SDOH Physica l Activity MPS 3 [facility] Clinical Notes 07-25-2022 to 12-11-2022 Patient InstructionsVicalbino Coburn MD - 12/11/2022 5:25 PM EDTPatient InstructionsFabio Hennessy APRN.CNP - 12/06/2022 9:34 AM EDTTelephone Encounter - Gertrude Morrow LPN - 12/04/2022 3:52 PM EDT Note Date & Type Note Facility 12-11-2022 Note HNO ID: [id number] Author: Harvey Coburn MD Service: ? Author Type: Physician Type: Progress Notes Filed: 12/12/2022 12:11 AM Note Text: This note was created using [employer]. Subjective Anitra Le is a 77 year old female. She just recovered from pneumonia. She had to stop pulmonary rehab, but will resume shortly. Main concern was persistent elevation of blood pressure noted during pulmonary rehab for the past 2 months. Pulmonary rehab reports were on file, and she also had periods of tachycardia with rehab. Review of Systems Constitutional: Negative for fever and unexpected weight change. Respiratory: Positive for shortness of breath. Cardiovascular: Negative for chest pain, palpitations and leg swelling. Neurological: Negative for dizziness and headaches. ACTIVE PROBLEM LIST Hypothyroidism White Coat Syndrome With Hypertension Chronic Obstructive Pulmonary Disease (Hcc) Solitary Lung Nodule Social History Tobacco Use Smoking status: Former Packs/day: 0.50 Years: 30.00 Pack years: 15.00 Types: Cigarettes Quit date: 06/18/2001 Years since quittin.4 Smokeless tobacco: Never Vaping Use Vaping Use: Never used Substance Use Topics Alcohol use: Yes Alcohol/week: 2.0 standard drinks Types: 2 Shots of liquor per week Drug use: Never Current Outpatient Medications Medication Sig amoxicillin-clavulanic acid (AUGMENTIN) 875-125 mg per tablet Take 1 tablet by mouth twice daily for 7 days. guaiFENesin (MUCINEX) 600 mg 12 hr tablet Take 1 tablet by mouth twice daily. albuterol HFA (VENTOLIN HFA) 90 mcg/actuation inhaler Inhale 2 Puffs as instructed every 4 hours as needed for wheezing/shortness of breath. losartan-hydroCHLOROthiazide (HYZAAR) 100-12.5 mg per tablet Take 1 tablet by mouth once daily. levothyroxine (SYNTHROID) 112 mcg tablet Take 1 tablet by mouth daily before breakfast. typgiuqzyqz-nellioxdy-dyiqltqe (TRELEGY ELLIPTA) 100-62.5-25 mcg inhalation powder Trelegy Ellipta 100 mcg-62.5 mcg-25 mcg powder for inhalation INHALE 1 PUFF INTO THE LUNGS EVERY DAY FOR 30 DAYS calcium/magnesium/vitamin D2 (ONE-A-DAY CALCIUM PLUS ORAL) Take by mouth. vitamin B complex (B-100 ORAL) Take by mouth. predniSONE (DELTASONE) 20 mg tablet Take two daily for 5 days. (Patient not taking: Reported on 12/11/2022) No current facility-administered medications for this visit. Objective BP 161/84 (BP Site: Left Arm, BP Position: Sitting, BP Cuff Size: Regular Adult) Pulse 85 Wt 46.7 kg (103 lb) SpO2 96% BMI 19.32 kg/m? Physical Exam Constitutional: General: She is not in acute distress. Cardiovascular: Rate and Rhythm: Normal rate and regular rhythm. Heart sounds: No murmur heard. No gallop. Pulmonary: Effort: No respiratory distress. Breath sounds: Decreased breath sounds, wheezing and rhonchi present. Musculoskeletal: Right lower leg: No edema. Left lower leg: No edema. Neurological: Mental Status: She is alert. Gait: Gait normal. EKG RESULTS: normal sinus rhythm and left posterior fascicular block, no acute ST change, no prior EKG. Assessment and Plan 1. White coat syndrome with hypertension - ICD9: 401.9, ICD10: I10 (primary diagnosis) - Worsening control - Shared medical decision making was done. - VERAPAMIL ER (PM) 100 [address]SULE [address] P[address],EXT.RELEASE. Start new medication to control BP and tachycardia. Discussed medication dosage, usage, goals of therapy, and side effects. - She was taking LOSARTAN HCTZ at bedtime. Switch to AM. 2. Chronic obstructive pulmonary disease, unspecified COPD type (HCC) - ICD9: 496, ICD10: J44.9 Resume pulmonary rehab. 3. Tachycardia - ICD9: 785.0, ICD10: R00.0 See #1. - ECG COMPLETE Harvey Coburn MD [facility] 12-11-2022 Instructions Harvey Coburn MD - 12/11/2022 5:59 PM EDT START TONIGHT. SKIP LOSARTAN TONIGHT AND START TAKING EVERY MORNING TOMORROW. documented in this encounter [facility] 12-11-2022 History of Present illness Narrative This note was created using [employer]. Subjective Anitra Le is a 77 year old female. She just recovered from pneumonia. She had to stop pulmonary rehab, but will resume shortly. Main concern was persistent elevation of blood pressure noted during pulmonary rehab for the past 2 months. Pulmonary rehab reports were on file, and she also had periods of tachycardia with rehab. Review of Systems Constitutional: Negative for fever and unexpected weight change. Respiratory: Positive for shortness of breath. Cardiovascular: Negative for chest pain, palpitations and leg swelling. Neurological: Negative for dizziness and headaches. ACTIVE PROBLEM LIST Hypothyroidism White Coat Syndrome With Hypertension Chronic Obstructive Pulmonary Disease (Hcc) Solitary Lung Nodule Social History Tobacco Use Smoking status: Former Packs/day: 0.50 Years: 30.00 Pack years: 15.00 Types: Cigarettes Quit date: 06/18/2001 Years since quittin.4 Smokeless tobacco: Never Vaping Use Vaping Use: Never used Substance Use Topics Alcohol use: Yes Alcohol/week: 2.0 standard drinks Types: 2 Shots of liquor per week Drug use: Never Current Outpatient Medications Medication Sig amoxicillin-clavulanic acid (AUGMENTIN) 875-125 mg per tablet Take 1 tablet by mouth twice daily for 7 days. guaiFENesin (MUCINEX) 600 mg 12 hr tablet Take 1 tablet by mouth twice daily. albuterol HFA (VENTOLIN HFA) 90 mcg/actuation inhaler Inhale 2 Puffs as instructed every 4 hours as needed for wheezing/shortness of breath. losartan-hydroCHLOROthiazide (HYZAAR) 100-12.5 mg per tablet Take 1 tablet by mouth once daily. levothyroxine (SYNTHROID) 112 mcg tablet Take 1 tablet by mouth daily before breakfast. tosydnnnmkb-gzowcxiyt-aaiunrph (TRELEGY ELLIPTA) 100-62.5-25 mcg inhalation powder Trelegy Ellipta 100 mcg-62.5 mcg-25 mcg powder for inhalation INHALE 1 PUFF INTO THE LUNGS EVERY DAY FOR 30 DAYS calcium/magnesium/vitamin D2 (ONE-A-DAY CALCIUM PLUS ORAL) Take by mouth. vitamin B complex (B-100 ORAL) Take by mouth. predniSONE (DELTASONE) 20 mg tablet Take two daily for 5 days. (Patient not taking: Reported on 12/11/2022) No current facility-administered medications for this visit. Objective BP 161/84 (BP Site: Left Arm, BP Position: Sitting, BP Cuff Size: Regular Adult) Pulse 85 Wt 46.7 kg (103 lb) SpO2 96% BMI 19.32 kg/m Physical Exam Constitutional: General: She is not in acute distress. Cardiovascular: Rate and Rhythm: Normal rate and regular rhythm. Heart sounds: No murmur heard. No gallop. Pulmonary: Effort: No respiratory distress. Breath sounds: Decreased breath sounds, wheezing and rhonchi present. Musculoskeletal: Right lower leg: No edema. Left lower leg: No edema. Neurological: Mental Status: She is alert. Gait: Gait normal. EKG RESULTS: normal sinus rhythm and left posterior fascicular block, no acute ST change, no prior EKG. Assessment and Plan 1. White coat syndrome with hypertension - ICD9: 401.9, ICD10: I10 (primary diagnosis) - Worsening control - Shared medical decision making was done. - VERAPAMIL ER (PM) 100 MG CAPSULE 24HR PELLET CT,EXT.RELEASE. Start new medication to control BP and tachycardia. Discussed medication dosage, usage, goals of therapy, and side effects. - She was taking LOSARTAN HCTZ at bedtime. Switch to AM. 2. Chronic obstructive pulmonary disease, unspecified COPD type (HCC) - ICD9: 496, ICD10: J44.9 Resume pulmonary rehab. 3. Tachycardia - ICD9: 785.0, ICD10: R00.0 See #1. - ECG COMPLETE Harvey Coburn MD documented in this encounter [facility] 12-06-2022 Note HNO ID: [id number] Author: Debbie Urban RT(R) Service: Nuclear Medicine Author Type: Technologist Type: Progress Notes Filed: 12/06/2022 10:13 AM Note Text: Radiology Service Progress Note PATIENT NAME: Anitra Le DATE OF SERVICE: December 06, 2022 TIME: 10:08 AM PATIENT IDENTITY VERIFICATION COMPLETED USING TWO (2) IDENTIFIERS: Name and Date of confirmed by patient verbally. FALL SCREENING: Has the patient had 2 falls in the last year or 1 fall with injury or currently using an Ambulatory Assistive Device (Walker, Cane, Wheelchair, Crutches, etc.)? No PATIENT GENDER DATA: Female. status: : No status: NO. PATIENT RELEVANT IMPLANT DATA REVIEWED: Not Applicable RADIOLOGY DEPARTMENT: General X-ray: Exam(s) Completed: Chest X-Ray PERIPHERAL IV DATA: Not applicable SIGNED BY: RT Elizabeth(R) December 06, 2022 10:08 AM [facility] 12-06-2022 Note HNO ID: [id number] Author: Fabio Hennessy APRN.GROUP UNDERWRITER Service: ? Author Type: Nurse Practitioner Type: Progress Notes Filed: 12/06/2022 11:22 AM Note Text: Subjective HPI HPI Anitra Le is a 77 year old female who presents today for CC of cough, chest congestion, chest heaviness. This started 4 days ago. Has tried prednisone and zpack. Symptoms are worsened by nothing. Risk factors hx of copd, sees pulmonology. Denies cp, neck pain, arm pain. Had covid 2 months ago. 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 MEDICATIONS predniSONE (DELTASONE) 20 mg tablet Take two daily for 5 days. albuterol HFA (VENTOLIN HFA) 90 mcg/actuation inhaler Inhale 2 Puffs as instructed every 4 hours as needed for wheezing/shortness of breath. losartan-hydroCHLOROthiazide (HYZAAR) 100-12.5 mg per tablet Take 1 tablet by mouth once daily. levothyroxine (SYNTHROID) 112 mcg tablet Take 1 tablet by mouth daily before breakfast. gtbieiomgsu-pbvyvpwxd-wncuakvm (TRELEGY ELLIPTA) 100-62.5-25 mcg inhalation powder Trelegy Ellipta 100 mcg-62.5 mcg-25 mcg powder for inhalation INHALE 1 PUFF INTO THE LUNGS EVERY DAY FOR 30 DAYS calcium/magnesium/vitamin D2 (ONE-A-DAY CALCIUM PLUS ORAL) Take by mouth. vitamin B complex (B-100 ORAL) Take by mouth. azithromycin (ZITHROMAX) 500 mg tablet Take 1 tablet by mouth once daily for 3 days. (Patient not taking: Reported on 12/06/2022) FAMILY HISTORY Problem Relation Age of Onset Hypertension Mother Lung Cancer Mother COPD Father COPD Sister Social History Tobacco Use Smoking status: Former Packs/day: 0.50 Years: 30.00 Pack years: 15.00 Types: Cigarettes Quit date: 06/18/2001 Years since quittin.4 Smokeless tobacco: Never Vaping Use Vaping Use: Never used Substance Use Topics Alcohol use: Yes Alcohol/week: 2.0 standard drinks Types: 2 Shots of liquor per week Drug use: Never ROS Objective Blood pressure 158/78, pulse 87, temperature 36.6 ?C (97.8 ?F), resp. rate 19, weight 46.2 kg (101 lb 12.8 oz), SpO2 98 %. Component Latest Ref Rng AND Units 10/16/2022 Glucose 74 - 99 mg/dL 91 BUN 7 - 21 mg/dL 16 Creatinine 0.58 - 0.96 mg/dL 0.62 Sodium 136 - 144 mmol/L 135 (L) Potassium 3.7 - 5.1 mmol/L 4.1 Chloride 97 - 105 mmol/L 95 (L) CO2 22 - 30 mmol/L 26 Anion Gap 9 - 18 mmol/L 14 Calcium 8.5 - 10.2 mg/dL 9.6 eGFR >=60 mL/min/1.73mA? 92 Physical Exam Constitutional: General: She is not in acute distress. Appearance: She is not toxic-appearing or diaphoretic. HENT: Head: Normocephalic and atraumatic. Cardiovascular: Rate and Rhythm: Normal rate and regular rhythm. Heart sounds: Normal heart sounds, S1 normal and S2 normal. Pulmonary: Effort: Pulmonary effort is normal. Breath sounds: Examination of the right-lower field reveals decreased breath sounds. Examination of the left-lower field reveals decreased breath sounds. Decreased breath sounds present. No wheezing, rhonchi or rales. Neurological: Mental Status: She is alert and oriented to person, place, and time. Gait: Gait is intact. ASSESSMENT/PLAN: 1. Lower resp. tract infection - ICD9: 519.8, ICD10: J22 (primary diagnosis) - Discussed supportive care - Limit exposure to smoke and other inhaled irritants - Discussed possible red flags and when to seek medical attention - will schedule recheck in 2-3 days -If you experience chest pain/shortness of breath go to ER - GUAIFENESIN ER 600 MG TABLET, EXTENDED RELEASE 12 HR 2. Acute cough - ICD9: 786.2, ICD10: R05.1 - XR CHEST 2V FRONTAL/LAT IMPRESSION: Small pulmonary infiltrate versus atelectasis in the lingula. Dictated by : BERTHA GIFFORD MD - GUAIFENESIN ER 600 MG TABLET, EXTENDED RELEASE 12 HR Fabio Hennessy APRN.GROUP UNDERWRITER [facility] 12-06-2022 Instructions Fabio Hennessy APRN.[place] - 12/06/2022 11:04 AM EDT GENERAL INFORMATION: Pneumonia is a lung infection caused by bacteria, viruses, or bacteria-like germs. It usually cannot be spread to other people. INSTRUCTIONS: 1. If you are given a prescription for antibiotics, take them as ordered by your doctor until they are all gone. 2. Use a cool-mist humidifier or vaporizer to increase air moisture. This will make it easier for you to breathe. Do not use hot steam. 3. Rest in until your temperature is normal (98.6 F or 37 C) and your chest pain and shortness of breath are gone. 4. Slowly restart your normal activities. You may feel weak and tired for up to six weeks. 5. Drink at least one glass of water or other liquid every hour. This will help thin sputum and make it easier to cough up. 6. If you have chest pain, applying a heating pad or warm compresses for 10 to 20 minutes several times a day to the painful area may lessen the pain. 7. Take several deep breaths and then cough frequently during the day. This will help get rid of the infection. 8. You may take medicines that you can buy without a prescription to treat pain and fever. Use cough medicine only if absolutely necessary as coughing helps clear the infection. CONTACT YOUR DOCTOR IF: 1. Your temperature is over 102 F (39 C). 2. Your chest pain, fever or chills do not get better with medicine in 2-3 days. 3. You develop nausea, vomiting or diarrhea. 4. You are coughing up large amounts of bloody sputum. 5. You have any problems that may be related to the medicine that you are taking (such as rash, itching, swelling, or stomach pain). RETURN TO THE EMERGENCY DEPARTMENT IF: 1. You have a lot of trouble breathing or you have dark or bluish fingernails, toenails, or skin. 2. You have a severe headache, neck stiffness, or feel confused. documented in this encounter [facility] 12-06-2022 History of Present illness Narrative Subjective HPI HPI Anitra Le is a 77 year old female who presents today for CC of cough, chest congestion, chest heaviness. This started 4 days ago. Has tried prednisone and zpack. Symptoms are worsened by nothing. Risk factors hx of copd, sees pulmonology. Denies cp, neck pain, arm pain. Had covid 2 months ago. .Patient presents with: Cough: Difficulty breathing x 3 days PAST MEDICAL HISTORY Diagnosis Date Abducens nerve palsy left eye Age-related macular degeneration Chronic obstructive pulmonary disease (HCC) 07/25/2022 Hypertension 07/25/2022 Hypothyroidism 07/25/2022 Leukopenia Mixed hyperlipidemia Osteoarthritis Osteopenia Solitary lung nodule 07/25/2022 Uterine prolapse PAST SURGICAL HISTORY Procedure Laterality Date COLONOSCOPY SCREENING 2010 LIGATE FALLOPIAN TUBE 1976 TONSILLECTOMY & ADENOIDECTOMY <AGE 12 ALLERGIES Patient has no known allergies. MEDICATIONS predniSONE (DELTASONE) 20 mg tablet Take two daily for 5 days. albuterol HFA (VENTOLIN HFA) 90 mcg/actuation inhaler Inhale 2 Puffs as instructed every 4 hours as needed for wheezing/shortness of breath. losartan-hydroCHLOROthiazide (HYZAAR) 100-12.5 mg per tablet Take 1 tablet by mouth once daily. levothyroxine (SYNTHROID) 112 mcg tablet Take 1 tablet by mouth daily before breakfast. mfrfxhslmxw-rketfksup-npdhhjmw (TRELEGY ELLIPTA) 100-62.5-25 mcg inhalation powder Trelegy Ellipta 100 mcg-62.5 mcg-25 mcg powder for inhalation INHALE 1 PUFF INTO THE LUNGS EVERY DAY FOR 30 DAYS calcium/magnesium/vitamin D2 (ONE-A-DAY CALCIUM PLUS ORAL) Take by mouth. vitamin B complex (B-100 ORAL) Take by mouth. azithromycin (ZITHROMAX) 500 mg tablet Take 1 tablet by mouth once daily for 3 days. (Patient not taking: Reported on 12/06/2022) FAMILY HISTORY Problem Relation Age of Onset Hypertension Mother Lung Cancer Mother COPD Father COPD Sister Social History Tobacco Use Smoking status: Former Packs/day: 0.50 Years: 30.00 Pack years: 15.00 Types: Cigarettes Quit date: 06/18/2001 Years since quittin.4 Smokeless tobacco: Never Vaping Use Vaping Use: Never used Substance Use Topics Alcohol use: Yes Alcohol/week: 2.0 standard drinks Types: 2 Shots of liquor per week Drug use: Never ROS Objective Blood pressure 158/78, pulse 87, temperature 36.6 C (97.8 F), resp. rate 19, weight 46.2 kg (101 lb 12.8 oz), SpO2 98 %. Component Latest Ref Rng & Units 10/16/2022 Glucose 74 - 99 mg/dL 91 BUN 7 - 21 mg/dL 16 Creatinine 0.58 - 0.96 mg/dL 0.62 Sodium 136 - 144 mmol/L 135 (L) Potassium 3.7 - 5.1 mmol/L 4.1 Chloride 97 - 105 mmol/L 95 (L) CO2 22 - 30 mmol/L 26 Anion Gap 9 - 18 mmol/L 14 Calcium 8.5 - 10.2 mg/dL 9.6 eGFR >=60 mL/min/1.73m 92 Physical Exam Constitutional: General: She is not in acute distress. Appearance: She is not toxic-appearing or diaphoretic. HENT: Head: Normocephalic and atraumatic. Cardiovascular: Rate and Rhythm: Normal rate and regular rhythm. Heart sounds: Normal heart sounds, S1 normal and S2 normal. Pulmonary: Effort: Pulmonary effort is normal. Breath sounds: Examination of the right-lower field reveals decreased breath sounds. Examination of the left-lower field reveals decreased breath sounds. Decreased breath sounds present. No wheezing, rhonchi or rales. Neurological: Mental Status: She is alert and oriented to person, place, and time. Gait: Gait is intact. ASSESSMENT/PLAN: 1. Lower resp. tract infection - ICD9: 519.8, ICD10: J22 (primary diagnosis) - Discussed supportive care - Limit exposure to smoke and other inhaled irritants - Discussed possible red flags and when to seek medical attention - will schedule recheck in 2-3 days -If you experience chest pain/shortness of breath go to ER - [facility] 600 MG TABLET, EXTENDED RELEASE 12 HR 2. Acute cough - ICD9: 786.2, ICD10: R05.1 - XR CHEST 2V FRONTAL/LAT IMPRESSION: Small pulmonary infiltrate versus atelectasis in the lingula. Dictated by : BERTHA GIFFORD MD - [facility] ER 600 MG TABLET, EXTENDED RELEASE 12 HR Fabio Hennessy APRN.GROUP UNDERWRITER documented in this encounter [facility] 12-04-2022 Miscellaneous Notes Called and updated patient that medication was sent in to pharmacy. Gertrude Morrow LPN Anitra called back and checking on antibiotic and requesting a steroid also. Please review and advise. Thank you Pharmacy [facility] Gertrude Morrow LPN Patient called in stating she is having congestion and clear phlegm. Patient is requesting Z-pac be sent to [facility] in [place]. Please notify patient at when sent in. Thank you Kizzy Mcknight LPN documented in this encounter [facility] 11-23-2022 Note HNO ID: [id number] Author: Melly Berman MD Service: ? Author Type: Physician Type: Progress Notes Filed: 11/23/2022 3:52 PM Note Text: Reviewed actual images of chest CT. Has diffuse emphysema but predominantly in upper lobes. Multiple pulmonary nodules that have been stable at least for one year. Will need follow-up chest CT. The distribution of emphysema does not appear amenable to a Hargill valve to my view and she did not have hyperinflation on past PFTs. Images will be uploaded into our system. [facility] 11-15-2022 Miscellaneous Notes Patient notified, verbalized understanding. If she feels well, continue to monitor and keep a diary. Her recent office BP readings are at goal since we adjusted her medication in August. If BP readings stay this elevated after another 2-3 weeks of rehab, schedule appointment for reevaluation. Be aware to limit salt intake. Patient reports her BP medication was recently increased. Reports BP this morning was 132/74. Reports she went to [facility] this morning for pulmonary rehab and did a work out for half an hour. Reports BP went up to 188/90, then rested a little while and BP went down to 158/74. Patient is going to drop off a copy of the read out pulmonary rehab gave her, today to pcp. Asking if she should be concerned about the increase in BP reading? documented in this encounter [facility] 10-24-2022 Note HNO ID: [id number] Author: Melly Berman MD Service: ? Author Type: Physician Type: Progress Notes Filed: 10/24/2022 3:39 PM Note Text: Received outside records. Will be scanned into the system. CT of the chest 2019 mentions upper lobe predominant emphysema with multiple pulmonary nodules. Will need actual images. 6-minute walk test 04/18/2022 no desaturation PFT 09/2021: FEV1 0.68 L 30 %, TLC 2.92 L 63%, RV/TLC 44%, DLCO/VA 2.11 50% The above information would not qualify her for Hargill valve [facility] 10-24-2022 History of Present illness Narrative Received outside records. Will be scanned into the system. CT of the chest 2019 mentions upper lobe predominant emphysema with multiple pulmonary nodules. Will need actual images. 6-minute walk test 04/18/2022 no desaturation PFT 09/2021: FEV1 0.68 L 30 %, TLC 2.92 L 63%, RV/TLC 44%, DLCO/VA 2.11 50% The above information would not qualify her for Hargill valve documented in this encounter [facility] 10-23-2022 Note HNO ID: [id number] Author: Adrianna Tabor APRN.GROUP UNDERWRITER Service: ? Author Type: Nurse Practitioner Type: Progress Notes Filed: 10/23/2022 1:37 PM Note Text: CC Patient presents with: 2 month follow up HPI Anitra Le is a 76 year old female who presents to the office for blood pressure. Her visit today is for follow-up. Patient was last seen for this approximately 3 months ago. Medication changes: Yes Losartan increased to 100 mg Taking all medications as prescribed: Yes Side effects: No Home BP's: No Denies: headache, chest pain, palpitations, dyspnea, and peripheral edema. Last 4 Encounter BP Readings: Date: BP: 10/23/2022 132/64 10/03/2022 122/80 08/28/2022 149/79 07/25/2022 132/80 Last 3 Encounter Wt Readings: Date: Wt: 10/23/2022 46.7 kg (103 lb) 10/03/2022 46.3 kg (102 lb) 10/03/2022 46.3 kg (102 lb) REVIEW OF SYSTEMS See HPI PAST MEDICAL HISTORY Diagnosis Date Abducens nerve palsy left eye Age-related macular degeneration Chronic obstructive pulmonary disease (HCC) 07/25/2022 Hypertension 07/25/2022 Hypothyroidism 07/25/2022 Leukopenia Mixed hyperlipidemia Osteoarthritis Osteopenia Solitary lung nodule 07/25/2022 Uterine prolapse PAST SURGICAL HISTORY Procedure Laterality Date COLONOSCOPY SCREENING 2010 LIGATE FALLOPIAN TUBE 1976 TONSILLECTOMY AND ADENOIDECTOMY ALLERGIES Patient has no known allergies. MEDICATIONS albuterol HFA (VENTOLIN HFA) 90 mcg/actuation inhaler Inhale 2 Puffs as instructed every 4 hours as needed for wheezing/shortness of breath. losartan-hydroCHLOROthiazide (HYZAAR) 100-12.5 mg per tablet Take 1 tablet by mouth once daily. levothyroxine (SYNTHROID) 112 mcg tablet Take 1 tablet by mouth daily before breakfast. gpcnyccimik-mhbwnyvvb-ccdzujmm (TRELEGY ELLIPTA) 100-62.5-25 mcg inhalation powder Trelegy Ellipta 100 mcg-62.5 mcg-25 mcg powder for inhalation INHALE 1 PUFF INTO THE LUNGS EVERY DAY FOR 30 DAYS calcium/magnesium/vitamin D2 (ONE-A-DAY CALCIUM PLUS ORAL) Take by mouth. vitamin B complex (B-100 ORAL) Take by mouth. FAMILY HISTORY Problem Relation Age of Onset Hypertension Mother Lung Cancer Mother COPD Father COPD Sister Social History Tobacco Use Smoking status: Former Packs/day: 0.50 Years: 30.00 Pack years: 15.00 Types: Cigarettes Quit date: 06/18/2001 Years since quittin.3 Smokeless tobacco: Never Vaping Use Vaping Use: Never used Substance Use Topics Alcohol use: Yes Alcohol/week: 2.0 standard drinks Types: 2 Shots of liquor per week Drug use: Never PHYSICAL EXAM BP 110/60 Pulse 101 Resp 22 Wt 46.7 kg (103 lb) SpO2 95% BMI 19.32 kg/m? General Appearance: well appearing, in no acute distress, alert Lungs: Lungs clear to auscultation. No wheezing, rhonchi, rales. Heart: RRR without murmur, gallop, or rubs. No ectopy DATA REVIEWED: Most recent labs ASSESSMENT/PLAN: 1. White coat syndrome with hypertension - ICD9: 401.9, ICD10: I10 (primary diagnosis) - good control - Continue current medication(s) - Recommended regular aerobic exercise. - Recommend home blood pressure monitoring, to bring results in on next visit - Goal of BP <130/80 2. Hypothyroidism, unspecified type - ICD9: 244.9, ICD10: E03.9 - continue current dose of Synthroid - TSH BLD in 3 months Prescription instructions reviewed with patient as applicable. Potential red flag symptoms discussed with the patient. Reviewed appropriate action plan to take if red flag symptoms occur. Patient agreeable to treatment plan Adrianna Tabor APRN.CNP [facility] 10-23-2022 History of Present illness Narrative CC Patient presents with: 2 month follow up HPI Anitra Le is a 76 year old female who presents to the office for blood pressure. Her visit today is for follow-up. Patient was last seen for this approximately 3 months ago. Medication changes: Yes Losartan increased to 100 mg Taking all medications as prescribed: Yes Side effects: No Home BP's: No Denies: headache, chest pain, palpitations, dyspnea, and peripheral edema. Last 4 Encounter BP Readings: Date: BP: 10/23/2022 132/64 10/03/2022 122/80 08/28/2022 149/79 07/25/2022 132/80 Last 3 Encounter Wt Readings: Date: Wt: 10/23/2022 46.7 kg (103 lb) 10/03/2022 46.3 kg (102 lb) 10/03/2022 46.3 kg (102 lb) REVIEW OF SYSTEMS See HPI PAST MEDICAL HISTORY Diagnosis Date Abducens nerve palsy left eye Age-related macular degeneration Chronic obstructive pulmonary disease (HCC) 07/25/2022 Hypertension 07/25/2022 Hypothyroidism 07/25/2022 Leukopenia Mixed hyperlipidemia Osteoarthritis Osteopenia Solitary lung nodule 07/25/2022 Uterine prolapse PAST SURGICAL HISTORY Procedure Laterality Date COLONOSCOPY SCREENING 2010 LIGATE FALLOPIAN TUBE 1976 TONSILLECTOMY & ADENOIDECTOMY <AGE 12 ALLERGIES Patient has no known allergies. MEDICATIONS albuterol HFA (VENTOLIN HFA) 90 mcg/actuation inhaler Inhale 2 Puffs as instructed every 4 hours as needed for wheezing/shortness of breath. losartan-hydroCHLOROthiazide (HYZAAR) 100-12.5 mg per tablet Take 1 tablet by mouth once daily. levothyroxine (SYNTHROID) 112 mcg tablet Take 1 tablet by mouth daily before breakfast. blzikkiigxo-pefwkujrb-krpnvrix (TRELEGY ELLIPTA) 100-62.5-25 mcg inhalation powder Trelegy Ellipta 100 mcg-62.5 mcg-25 mcg powder for inhalation INHALE 1 PUFF INTO THE LUNGS EVERY DAY FOR 30 DAYS calcium/magnesium/vitamin D2 (ONE-A-DAY CALCIUM PLUS ORAL) Take by mouth. vitamin B complex (B-100 ORAL) Take by mouth. FAMILY HISTORY Problem Relation Age of Onset Hypertension Mother Lung Cancer Mother COPD Father COPD Sister Social History Tobacco Use Smoking status: Former Packs/day: 0.50 Years: 30.00 Pack years: 15.00 Types: Cigarettes Quit date: 06/18/2001 Years since quittin.3 Smokeless tobacco: Never Vaping Use Vaping Use: Never used Substance Use Topics Alcohol use: Yes Alcohol/week: 2.0 standard drinks Types: 2 Shots of liquor per week Drug use: Never PHYSICAL EXAM BP 110/60 Pulse 101 Resp 22 Wt 46.7 kg (103 lb) SpO2 95% BMI 19.32 kg/m General Appearance: well appearing, in no acute distress, alert Lungs: Lungs clear to auscultation. No wheezing, rhonchi, rales. Heart: RRR without murmur, gallop, or rubs. No ectopy DATA REVIEWED: Most recent labs ASSESSMENT/PLAN: 1. White coat syndrome with hypertension - ICD9: 401.9, ICD10: I10 (primary diagnosis) - good control - Continue current medication(s) - Recommended regular aerobic exercise. - Recommend home blood pressure monitoring, to bring results in on next visit - Goal of BP <130/80 2. Hypothyroidism, unspecified type - ICD9: 244.9, ICD10: E03.9 - continue current dose of Synthroid - TSH BLD in 3 months Prescription instructions reviewed with patient as applicable. Potential red flag symptoms discussed with the patient. Reviewed appropriate action plan to take if red flag symptoms occur. Patient agreeable to treatment plan Adrianna Tabor APRN.[place] documented in this encounter [facility] 10-03-2022 Note HNO ID: [id number] Author: Melly Berman MD Service: ? Author Type: Physician Type: Progress Notes Filed: 10/03/2022 12:24 PM Note Text: . Respiratory [place] Note Patient name: Anitra Le PCP: Harvey Coburn MD Referring Physician: Same Consultation requested by Dr. Coburn for an opinion regarding COPD. My final recommendations will be communicated back to the requesting physician by way of shared Medical record or letter to requesting physician via US mail. CC: COPD HPI: Anitra Le 76 year old female former smoker for 30 years quitting in 2001 with PMH significant for COPD, HTN, hypothyroidism, HLD, and pulmonary nodule presenting for evaluation of her COPD. Recently moved from [place] to [place]. COPD treated with Trelegy Ellipta and as needed albuterol. She does not feel that the albuterol is helpful. She has never participated in pulmonary rehab. Has significant exposure history to biomass fuels (heated with coal) and secondhand smoke growing up. Family history of COPD including her father and sister. She has never been tested for alpha-1 antitrypsin deficiency that she can recall. She has never been intubated nor hospitalized for her COPD. She has lost quite a bit of weight in the past 6 months which she attributes to stress related to the of her grandson and her recent move. Normally weighs 110 pounds, currently 102 pounds. Her main complaint is of severe limited dyspnea. Affects her ADLs. No audible wheezing, chronic cough, history of recurrent bronchitis or pneumonia. No previous oxygen assessment. Patient denies any nocturnal symptoms although her states that she snores loudly. DATA: PFT: Review of pulmonary function test shows severe fixed obstruction Labs: Component Ref Range AND Units 4 wk ago WBC 3.70 - 11.00 k/uL 3.87 RBC 3.90 - 5.20 m/uL 4.75 Hemoglobin 11.5 - 15.5 g/dL 15.0 Hematocrit 36.0 - 46.0 % 42.8 MCV 80.0 - 100.0 fL 90.1 MCH 26.0 - 34.0 pg 31.6 MCHC 30.5 - 36.0 g/dL 35.0 RDW-CV 11.5 - 15.0 % 13.8 Platelet Count 150 - 400 k/uL 400 MPV 9.0 - 12.7 fL 9.6 Neutrophils % % 47.4 Abs Neut 1.45 - 7.50 k/uL 1.84 Lymphocytes % % 37.5 Abs Lymph 1.00 - 4.00 k/uL 1.45 Monocytes % % 14.5 Abs George <0.87 k/uL 0.56 Eosinophils % % 0.0 Abs Eosin <0.46 k/uL <0.03 Basophils % % 0.3 Abs Baso <0.11 k/uL <0.03 Immature Granulocytes % % 0.3 Abs Immature Gran <0.10 k/uL <0.03 NRBC /100 WBC 0.0 Absolute nRBC <0.01 k/uL <0.01 Diff Type Auto No past imaging available for review PAST MEDICAL HISTORY Diagnosis Date Abducens nerve palsy left eye Age-related macular degeneration Chronic obstructive pulmonary disease (HCC) 07/25/2022 Hypertension 07/25/2022 Hypothyroidism 07/25/2022 Leukopenia Mixed hyperlipidemia Osteoarthritis Osteopenia Solitary lung nodule 07/25/2022 Uterine prolapse ALLERGIES No Known Allergies losartan-hydroCHLOROthiazide (HYZAAR) 100-12.5 mg per tablet Take 1 tablet by mouth once daily. levothyroxine (SYNTHROID) 112 mcg tablet Take 1 tablet by mouth daily before breakfast. thrmlxuwfvt-ignixtykz-ksvwdpqv (TRELEGY ELLIPTA) 100-62.5-25 mcg inhalation powder Trelegy Ellipta 100 mcg-62.5 mcg-25 mcg powder for inhalation INHALE 1 PUFF INTO THE LUNGS EVERY DAY FOR 30 DAYS calcium/magnesium/vitamin D2 (ONE-A-DAY CALCIUM PLUS ORAL) Take by mouth. vitamin B complex (B-100 ORAL) Take by mouth. albuterol HFA (VENTOLIN HFA) 90 mcg/actuation inhaler Inhale 2 Puffs as instructed every 4 hours as needed for wheezing/shortness of breath. 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 Worked in a [employer] for 3 years Biomass fuel and secondhand smoke exposure as a child FAMILY HISTORY Problem Relation Age of Onset Hypertension Mother Lung Cancer Mother COPD Father COPD Sister PAST SURGICAL HISTORY Procedure Laterality Date COLONOSCOPY SCREENING 2010 LIGATE FALLOPIAN TUBE 1976 TONSILLECTOMY AND ADENOIDECTOMY PMH, Social history, family history and surgical history reviewed and updated in EMR REVIEW OF SYSTEMS: CONSTITUTIONAL: No fevers, chills, nightsweats. Weight loss due to recent stress. 110 normal weight HEENT: Denies heaches, nasal congestion/sinus symptoms, problematic allergy problems. EYES: No diplopia or blurry vision. CARDIOVASCULAR: No chest pain, palpitations, orthopnea, PND, edema. PULM: See HPI GI: No dysphagia/odynophagia, problematic reflux, constipation, diarrhea, changes in stool habits (more content not included)... [facility] 10-03-2022 Note HNO ID: [id number] Author: JEAN Shirley Service: ? Author Type: Respiratory Therapist Type: Progress Notes Filed: 10/03/2022 10:47 AM Note Text: PULM FUNCTION SMARTBLOCK: Provider: Melly Berman MD Assisting Tech: JEAN Shirley Spirometry w/BD: 1 [facility] 09-18-2022 Note HNO ID: [id number] Author: Torsten Espitia MD Service: ? Author Type: Physician Type: Progress Notes Filed: 09/18/2022 4:08 PM Note Text: Telemedicine Evaluation for COVID-19 Infection Audio only was used for evaluation of this patient. I have communicated my name and active licensure. The patient's identity and physical location were verified at the time of this visit. Either the patient or their legal airport representative has been informed of the risks and benefits of -- and alternatives to -- treatment through a remote evaluation and consents to proceed with the evaluation remotely. SUBJECTIVE Anitra Le is a 76 year old female who presents with 2 days of symptoms that are stable. Positive for COVID last night on rapid test x2. Symptoms include: Fever (?100.4F): No or Chills: Yes Cough: Yes-Dry Shortness of breath: No or Difficulty breathing: No Fatigue: Yes Muscle aches: No Headache: No New loss of smell or taste: No Sore throat: Yes Nasal congestion: Yes or Rhinorrhea: Yes Nausea: No or Vomiting: No Diarrhea: No OTC meds/remedies that patient has tried: ASA 325 mg. High risk category assessment Age > 60 years old Hypertension Chronic lung disease Exposures: Sick contacts? Yes Family or close contacts with confirmed/probable COVID-19 in last 14 days? Yes OBJECTIVE VIDEO EXAM Temperature: 97.1, BP: 132/72, Oxygen 97% GENERAL: Well sounding, able to talk in complete sentences without cough, SOB, wheezing. HEENT: sinuses non-tender to self-palpation and no cervical adenopathy by self-palpation ASSESSMENT/PLAN (U07.1) COVID-19 virus infection (primary encounter diagnosis) ASSESSMENT/PLAN: 1. COVID-19 virus infection - ICD9: 079.89, ICD10: U07.1 Recommend rest, supportive care, and should isolate until: At least 5 days have passed since symptoms first appeared and At least 24 hours have passed since last fever without the use of fever-reducing medications and Symptoms (e.g., cough, shortness of breath) have improved. Should wear mask for at least 5 days after he ends isolation to prevent spread to others. Red flags for re-assessment reviewed with patient in detail. Molnupiravir Eligibility and Patient Discussion [facility] Formulary Restriction Criteria: Adult outpatients 18 years and older with ALL of the following: [x] Patient has symptoms for 5 days or less [x] Not requiring hospitalization at any time for management of COVID-19 [x] Not requiring supplemental oxygen or a change in baseline supplemental oxygen [x] Not utilized for pre-exposure or post-exposure prophylaxis for prevention of COVID-19 [x] Patient is not or lactating [x] Meeting at least one of the criteria for high risk of progression to severe COVID-19: [x] Age over 65 years [] Cancer [] Chronic kidney disease [] Chronic liver disease [] Chronic lung diseases, including cystic fibrosis [] Dementia or other neurological conditions [] Diabetes (type 1 or type 2) [] Disabilities, including Down syndrome and neurodevelopmental disorders [] Heart conditions [] HIV infection [] Immunocompromised state [] Mental health conditions [] Medical related technological dependence (tracheostomy, gastrostomy, or positive pressure ventilation (not related to COVID) [] Overweight and obesity (BMI greater or equal to 25 for adults) [] Physical inactivity [] Sickle cell disease or thalassemia [] Smoking, current or former [] Solid organ or blood stem cell transplant [] Stroke or cerebrovascular disease [] Substance use disorders [] Tuberculosis [] People from racial and ethnic minority groups Criteria above are met: Yes Date of Symptom Onset: 09/16/2022 Patient received COVID vaccine: Yes / status reviewed: Females: [x] Patient is not currently and there is no possibility the patient could be (select one of the following): [] test does not need to be confirmed in patients who have undergone permanent sterilization, are currently using an intrauterine system or contraceptive implant, or in whom is not possible. [] Patients not meeting conditions above: assess whether the patient is based on the first day of the last menstrual period in individuals who have regular menstrual cycles, is using reliable method of contraception correctly and consistently or have had a negative test [] A test is recommended if the individual has irregular menstrual cycles, is unsure of the first day of the last menstrual period or is not using effective contraception correctly and consistently [] Patient is not currently . is not recommended during treatment and for four days after final dose of molnupiravir. [] Females have been advised to use a reliable method of contraception correctly and consistently for the duration of treatment (more content not included)... [facility] 09-18-2022 Instructions Torsten Espitia MD - 09/18/2022 4:03 PM EDT Fact Sheet for Patients And Caregivers Emergency Use Authorization (EUA) Of LAGEVRIO (molnupiravir) capsules For Coronavirus Disease 2019 (COVID-19) What is the most important information I should know about LAGEVRIO? LAGEVRIO may cause serious side effects, including: LAGEVRIO may cause harm to your unborn baby. It is not known if LAGEVRIO will harm your baby if you take LAGEVRIO during . LAGEVRIO is not recommended for use in . LAGEVRIO has not been studied in . LAGEVRIO was studied in animals only. When LAGEVRIO was given to animals, LAGEVRIO caused harm to their unborn babies. You and your healthcare provider may decide that you should take LAGEVRIO during if there are no other COVID-19 treatment options approved or authorized by the FDA that are accessible or clinically appropriate for you. If you and your healthcare provider decide that you should take LAGEVRIO during , you and your healthcare provider should discuss the known and potential benefits and the potential risks of taking LAGEVRIO during . For individuals who are able to become : You should use a reliable method of control (contraception) consistently and correctly during treatment with LAGEVRIO and for 4 days after the last dose of LAGEVRIO. Talk to your healthcare provider about reliable control methods. Before starting treatment with LAGEVRIO your healthcare provider may do a test to see if you are before starting treatment with LAGEVRIO. Tell your healthcare provider right away if you become or think you may be during treatment with LAGEVRIO. Registry: There is a registry for individuals who take LAGEVRIO during . The purpose of this program is to collect information about the health of you and your baby. If you are or become during treatment with LAGEVRIO, you are encouraged to report your use of LAGEVRIO during to this registry at https://covid-pr.[employer] or . For individuals who are sexually active with partners who are able to become : It is not known if LAGEVRIO can affect sperm. While the risk is regarded as low, animal studies to fully assess the potential for LAGEVRIO to affect the babies of males treated with LAGEVRIO have not been completed. A reliable method of control (contraception) should be used consistently and correctly during treatment with LAGEVRIO and for at least 3 months after the last dose. The risk to sperm beyond 3 months is not known. Studies to understand the risk to sperm beyond 3 months are ongoing. Talk to your healthcare provider about reliable control methods. Talk to your healthcare provider if you have questions or concerns about how LAGEVRIO may affect sperm. You are being given this fact sheet because your healthcare provider believes it is necessary to provide you with LAGEVRIO for the treatment of adults with a current diagnosis of mild-tomoderate coronavirus disease 2019 (COVID-19) who are at high risk for progression to severe COVID-19, including hospitalization or , and for whom other COVID-19 treatment options approved or authorized by the FDA are not accessible or clinically appropriate. The [place]. Food and Drug Administration (FDA) has issued an Emergency Use Authorization (EUA) to make LAGEVRIO available during the COVID-19 pandemic (for more details about an EUA please see What is an Emergency Use Authorization? at the end of this document). LAGEVRIO is not an FDA-approved medicine in the [place]. Read this Fact Sheet for information about LAGEVRIO. Talk to your healthcare provider about your options if you have any questions. It is your choice to take LAGEVRIO. What is COVID-19? COVID-19 is caused by a virus called a coronavirus. You can get COVID-19 through close contact with another person who has the virus. COVID-19 illnesses have ranged from very rxjd-vd-dedrcm, including illness resulting in . While information so far suggests that most COVID-19 illness is mild, serious illness can happen and may cause some of your other medical conditions to become worse. Older people and people of all ages with severe, long lasting (chronic) medical conditions like heart disease, lung disease and diabetes, for example seem to be at higher risk of being hospitalized for COVID-19. What is LAGEVRIO? LAGEVRIO is an investigational medicine used to treat adults with a current diagnosis of mild to moderate COVID-19: who are at high risk for progression to severe COVID-19 including hospitalization or , and for whom other COVID-19 treatment options approved or authorized by the FDA are not accessible or clinically appropriate. The FDA has authorized the emergency use of LAGEVRIO for the treatment of mild-tomoderate COVID-19 in adults under an EUA. For more information on EUA, see the What is an Emergency Use Authorization (EUA)? section at the end of this Fact Sheet. LAGEVRIO is not authorized: for use in people less than 18 years of age. for prevention of COVID-19. for people needing hospitalization for COVID-19. for use for longer than 5 consecutive days. What should I tell my healthcare provider before I take LAGEVRIO? Tell your healthcare provider if you: have any allergies are or plan to breastfeed have any serious illnesses Take any medicines including prescription, bjsg-smd-kynjmpf medicines, vitamins, and herbal products. How do I take LAGEVRIO? Take LAGEVRIO exactly as your healthcare provider tells you to take it. Take 4 capsules of LAGEVRIO every 12 hours (for example, at 8 am and at 8 pm) Take LAGEVRIO for 5 days. It is important that you complete the full 5 days of treatment with LAGEVRIO. Do not stop taking LAGEVRIO before you complete the full 5 days of treatment, even if you feel better. Take LAGEVRIO with or without food. You should stay in isolation for as long as your healthcare provider tells you to. Talk to your healthcare provider if you are not sure about how to properly isolate while you have COVID-19. Swallow LAGEVRIO capsules whole. Do not open, break, or crush the capsules. If you cannot swallow capsules whole, tell your healthcare provider. If your healthcare provider prescribes LAGEVRIO and tells you to take or give a dose through a nasogastric (NG) or orogastric (OG) tube, follow the instructions below: How to take or give a dose of LAGEVRIO through a nasogastric (NG) or orogastric (OG) feeding tube. You must have an NG or OG that is size 12 Luxembourgish (FR) or larger. If you miss a dose of LAGEVRIO: If it has been less than 10 hours since the missed dose, take it as soon as you remember. If it has been more than 10 hours since the missed dose, skip the missed dose and take your dose at the next scheduled time. Do not double the dose of LAGEVRIO to make up for a missed dose. How to take or give a dose of LAGEVRIO through a nasogastric (NG) or orogastric (OG) feeding tube: Wash your hands well with soap and water. Gather the supplies you will need to take or give the prescribed dose of LAGEVRIO. 4 LAGEVRIO capsules 1 liquid measuring cup with mL markings to measure 40 mL of room temperature water 1 clean container with a lid 1 catheter tip syringe. Your healthcare provider should tell you what size catheter tip syringe you will need to take or give a dose of LAGEVRIO. Place the needed supplies on a clean work surface. Follow your healthcare provider s instructions on how to flush the NG or OG feeding tube. Flush the NG or OG feeding tube with 5 mL of water before taking or giving a dose of LAGEVRIO. Carefully open 4 LAGEVRIO capsules, one at a time, and empty the contents into a clean container. Use the liquid measuring cup to measure 40 mL of room temperature water and add to the container containing the capsule contents. Place the lid on the container. Shake to mix the capsule contents and water well for 3 minutes. The capsule contents may not dissolve completely. Remove the lid from the container and draw up all the LAGEVRIO and water mixture into a catheter tip syringe. Give all of the mixture right away through the NG or OG feeding tube. Do not keep the mixture for future use. If any capsule contents are left in the container: Add 10 mL of water to the container, and mix to loosen any capsule contents that are left in the container. Use the catheter tip syringe to draw up all of the mixture in the container. Give the mixture through the NG or OG feeding tube. Repeat this process as needed until you no longer see any capsule contents left in the container or catheter tip syringe. Use the same catheter tip syringe to flush the NG or OG feeding tube 2 times with 5 mL of water (10mL total). Rinse the container, lid and catheter tip syringe well with clean water after use. Place on a clean paper towel until next use. What are the important possible side effects of LAGEVRIO? See, What is the most important information I should know about LAGEVRIO? Allergic Reactions. Allergic reactions can happen in people taking LAGEVRIO, even after only 1 dose. Stop taking LAGEVRIO and call your healthcare provider right away if you get any of the following symptoms of an allergic reaction: hives rapid heartbeat trouble swallowing or breathing swelling of the mouth, lips, or face throat tightness hoarseness skin rash The most common side effects of LAGEVRIO are: diarrhea nausea dizziness These are not all the possible side effects of LAGEVRIO. Not many people have taken LAGEVRIO. Serious and unexpected side effects may happen. This medicine is still being studied, so it is possible that all of the risks are not known at this time. What other treatment choices are there? Veklury (remdesivir) is FDA-approved as an intravenous (IV) infusion for the treatment of mildto-moderate COVID-19 in certain adults and children. Talk with your doctor to see if Veklury is appropriate for you. Like LAGEVRIO, FDA may also allow for the emergency use of other medicines to treat people with COVID-19. Go to https://www.fda.gov/emergency-pre qpyjcvwaa-zjx-jzsebrew/mcm-legalr xxrqqshpf-kgt-xjshqc-framework/em jxzxtkv-ysi-nlpdqepareegp for more information. It is your choice to be treated or not to be treated with LAGEVRIO. Should you decide not to take it, it will not change your standard medical care. What if I am ? is not recommended during treatment with LAGEVRIO and for 4 days after the last dose of LAGEVRIO. If you are or plan to breastfeed, talk to your healthcare provider about your options and specific situation before taking LAGEVRIO. How do I report side effects with LAGEVRIO? Contact your healthcare provider if you have any side effects that bother you or do not go away. Report side effects to FDA MedWatch at www.fda.gov/medwatch or call 0-932-BMP-5317 (1715.268.1979). How should I store LAGEVRIO? Store LAGEVRIO capsules at room temperature between 68 F to 77 F (20 C to 25 C). Keep LAGEVRIO and all medicines out of the reach of children. How can I learn more about COVID-19? Ask your healthcare provider. Visit www.cdc.gov/COVID19 Contact your local or state public health department. Call [employer] at (toll free in the [place] Visit [employer] What Is an Emergency Use Authorization (EUA)? The [place] FDA has made LAGEVRIO available under an emergency access mechanism called an Emergency Use Authorization (EUA) The EUA is supported by a [place] of Health and Human Service (HHS) declaration that circumstances exist to justify emergency use of drugs and biological products during the COVID-19 pandemic. LAGEVRIO for the treatment of adults with a current diagnosis of tnpx-js-vosakqat COVID-19 who are at high risk for progression to severe COVID-19, including hospitalization or , and for whom alternative COVID-19 treatment options approved or authorized by FDA are not accessible or clinically appropriate, has not undergone the same type of review as an FDAapproved product. In issuing an EUA under the COVID-19 public health emergency, the FDA has determined, among other things, that based on the total amount of scientific evidence available including data from adequate and well-controlled clinical trials, if available, it is reasonable to believe that the product may be effective for diagnosing, treating, or preventing COVID-19, or a serious or life-threatening disease or condition caused by COVID-19; that the known and potential benefits of the product, when used to diagnose, treat, or prevent such disease or condition, outweigh the known and potential risks of such product; and that there are no adequate, approved, and available alternatives. All of these criteria must be met to allow for the product to be used in the treatment of patients during the COVID-19 pandemic. The EUA for LAGEVRIO is in effect for the duration of the COVID-19 declaration justifying emergency use of LAGEVRIO, unless terminated or revoked (after which LAGEVRIO may no longer be used under the EUA). [place]. for: [employer] [address] For patent information: www.Clinical Data/research/patent Copyright [employer] [facility] and its affiliates. All rights reserved. [id number] Revised: July 2022 documented in this encounter [facility] 09-18-2022 History of Present illness Narrative Telemedicine Evaluation for COVID-19 Infection Audio only was used for evaluation of this patient. I have communicated my name and active licensure. The patient's identity and physical location were verified at the time of this visit. Either the patient or their legal airport representative has been informed of the risks and benefits of -- and alternatives to -- treatment through a remote evaluation and consents to proceed with the evaluation remotely. SUBJECTIVE Anitra Le is a 76 year old female who presents with 2 days of symptoms that are stable. Positive for COVID last night on rapid test x2. Symptoms include: Fever (?100.4F): No or Chills: Yes Cough: Yes-Dry Shortness of breath: No or Difficulty breathing: No Fatigue: Yes Muscle aches: No Headache: No New loss of smell or taste: No Sore throat: Yes Nasal congestion: Yes or Rhinorrhea: Yes Nausea: No or Vomiting: No Diarrhea: No OTC meds/remedies that patient has tried: ASA 325 mg. High risk category assessment Age > 60 years old Hypertension Chronic lung disease Exposures: Sick contacts? Yes Family or close contacts with confirmed/probable COVID-19 in last 14 days? Yes OBJECTIVE VIDEO EXAM Temperature: 97.1, BP: 132/72, Oxygen 97% GENERAL: Well sounding, able to talk in complete sentences without cough, SOB, wheezing. HEENT: sinuses non-tender to self-palpation and no cervical adenopathy by self-palpation ASSESSMENT/PLAN (U07.1) COVID-19 virus infection (primary encounter diagnosis) ASSESSMENT/PLAN: 1. COVID-19 virus infection - ICD9: 079.89, ICD10: U07.1 Recommend rest, supportive care, and should isolate until: At least 5 days have passed since symptoms first appeared and At least 24 hours have passed since last fever without the use of fever-reducing medications and Symptoms (e.g., cough, shortness of breath) have improved. Should wear mask for at least 5 days after he ends isolation to prevent spread to others. Red flags for re-assessment reviewed with patient in detail. Molnupiravir Eligibility and Patient Discussion [facility] Formulary Restriction Criteria: Adult outpatients 18 years and older with ALL of the following: [x] Patient has symptoms for 5 days or less [x] Not requiring hospitalization at any time for management of COVID-19 [x] Not requiring supplemental oxygen or a change in baseline supplemental oxygen [x] Not utilized for pre-exposure or post-exposure prophylaxis for prevention of COVID-19 [x] Patient is not or lactating [x] Meeting at least one of the criteria for high risk of progression to severe COVID-19: [x] Age over 65 years [] Cancer [] Chronic kidney disease [] Chronic liver disease [] Chronic lung diseases, including cystic fibrosis [] Dementia or other neurological conditions [] Diabetes (type 1 or type 2) [] Disabilities, including Down syndrome and neurodevelopmental disorders [] Heart conditions [] HIV infection [] Immunocompromised state [] Mental health conditions [] Medical related technological dependence (tracheostomy, gastrostomy, or positive pressure ventilation (not related to COVID) [] Overweight and obesity (BMI greater or equal to 25 for adults) [] Physical inactivity [] Sickle cell disease or thalassemia [] Smoking, current or former [] Solid organ or blood stem cell transplant [] Stroke or cerebrovascular disease [] Substance use disorders [] Tuberculosis [] People from racial and ethnic minority groups Criteria above are met: Yes Date of Symptom Onset: 09/16/2022 Patient received COVID vaccine: Yes / status reviewed: Females: [x] Patient is not currently and there is no possibility the patient could be (select one of the following): [] test does not need to be confirmed in patients who have undergone permanent sterilization, are currently using an intrauterine system or contraceptive implant, or in whom is not possible. [] Patients not meeting conditions above: assess whether the patient is based on the first day of the last menstrual period in individuals who have regular menstrual cycles, is using reliable method of contraception correctly and consistently or have had a negative test [] A test is recommended if the individual has irregular menstrual cycles, is unsure of the first day of the last menstrual period or is not using effective contraception correctly and consistently [] Patient is not currently . is not recommended during treatment and for four days after final dose of molnupiravir. [] Females have been advised to use a reliable method of contraception correctly and consistently for the duration of treatment and for four days after the last dose of molnupiravir Males: [] Sexually active male with partner(s) of childbearing potential has been advised to use a reliable method of contraception correctly and consistently for intercourse for the duration of treatment and for three months after the last dose of molnupiravir I have discussed the use of the investigational therapeutic, molnupiravir, for the treatment of mild to moderate COVID-19 and its use under Emergency Use Authorization with the patient. The patient was informed that molnupiravir is not an FDA approved drug and that it is authorized for use under this Emergency Use Authorization. The patient was also informed of the significant known benefits and potential risks of molnupiravir, and the extent to which such potential risks and benefits are unknown. The patient was informed that there is mandatory reporting of all medication errors and serious adverse events potentially related to molnupiravir treatment within 7 calendar days from the onset of the event and that events up to 28 days after completion of therapy need to be reported. The discussion included alternatives to receiving molnupiravir, including clinical trials, and potential the risks and benefits of those alternatives. The patient was provided electronically with the Fact Sheet for Patients, Parents and Caregivers . The patient was also instructed that in addition to the treatment with molnupiravir, he/she should continue to self-isolate and use infection control measures (e.g., wear mask, isolate, social distance, avoid sharing personal items, clean and disinfect high touch surfaces, and frequent handwashing) according to CDC guidelines. The patient stated understanding and gave verbal consent to proceeding with molnupiravir treatment. - MOLNUPIRAVIR 200 MG CAPSULE (EUA) Torsten Espitia MD September 18, 2022 4:07 PM I spent a total of 21 minutes on the date of the service which included preparing to see the patient, completing clinical documentation, obtaining and/or reviewing separately obtained history, performing a medically appropriate examination, counseling and educating the patient/family/caregiver, and ordering medications, tests, or procedures. This patient encounter involved the screening or treatment of novel coronavirus infection (COVID-19). documented in this encounter [facility] 09-18-2022 Miscellaneous Notes TC to patient - phone visit scheduled for this afternoon with Dr. Espitia. She is unable to do a virtual visit. INTM full. Patient calling to ask about the medication that is to be prescribed for COVID. Pharmacy [facility] in [place]. Patient has COPD. Please return call to patient [phone] Anitra Le is calling Harvey Coburn MD today with concern regarding Covid Positive: Cough; has COPD; sore throat; requesting medication. Please call. Patient has been identified by name and birthdate. Duration of symptoms: N/A Person calling: self Call patient at: at home [phone] (home) [phone] (cell) Was an appointment scheduled: No Closing statement: Symptom Call: Thank you for calling [facility], your call is very important. A nurse will call in approximately 2-4 hours during business hours. If this is an emergency, please contact 911. Evelyn Carter documented in this encounter [facility] 08-28-2022 Note HNO ID: [id number] Author: Harvey Coburn MD Service: ? Author Type: Physician Type: Progress Notes Filed: 08/28/2022 12:50 PM Note Text: Anitra Le is a 76 year old female here for a Medicare Subsequent Annual Wellness Visit Health Risk Assessment In general, health is: Very good Concerns with balance:Not at all Concerns with teeth or dentures:Not at all Concerns with sexual function:Not at all Almyra anxious, stressed, angry, irritable, lonely, isolated, or had thoughts of hurting themself: Not at all Has little interest or pleasure in doing things: Not at all Bothered by feeling down, depressed, or hopeless: Not at all Needs help with grocery shopping, cooking, housework, bathing, grooming, dressing, eating, sitting or standing, walking, using the toilet, handling finances, taking medications, using the telephone, or driving: No Following safety precautions in the home environment and vehicle: removed throw rugs from floors, installed grab bars in the bathroom, handrails in stairwells, having adequate lighting, wearing seatbelt at all times?: Yes Smokes cigarettes, vapes, or chew tobacco: No Eats healthy foods including fruits, vegetables, whole grains, and fiber-rich foods: More than half the days Number of days per week engages in exercise: 0 days Average alcohol consumption: 2-3 times a week Current Providers Specialists: I have reviewed specialist-related care of the patient in the medical record. Current care team: Patient Care Team: Harvey Coburn MD as PCP - General (Internal Medicine) Outside specialists seen: Dr. Brady Berman, pulmonary. Medical/Family history review Reviewed and updated problem list, medical/surgical/family/social history, medications, and allergies. Opioid use review Patient is not currently using opioids. Depression screening Depression Screening PHQ-2 Score 07/25/2022 0 Depression screening tool completed and reviewed. Based on score and interview, patient is not at risk for depression. Screening tool discussed with patient, and I recommended no further intervention at this time. Cognitive screening Mini Cog Score: Score: 5 Cognitive screening reviewed and no further action needed (score 3-5) Functional Observation Was the patient's timed Up AND Go test unsteady or ? 12 seconds? No Advance Care Planning End of Life planning discussed, including patient's advanced directive wishes: Yes Measurements BP 149/79 Pulse 82 Resp 20 Wt 102 lb (46.3kg) Visual acuity (required for Welcome to Medicare): screening completed today and Right: 20/50 Left: 20/ 40 Both: 20/50 Hearing Evaluation: within normal limits Assessment/Plan - Counseled on healthy diet and regular exercise - Fall avoidance - Depression screening [facility] 08-28-2022 Note HNO ID: [id number] Author: Harvey Coburn MD Service: ? Author Type: Physician Type: Progress Notes Filed: 08/28/2022 12:50 PM Note Text: This note was created using [employer]. Subjective Anitra Le is a 76 year old female was here for a medicare wellness and follow up after she established care here last month. She moved from [place]. Her blood pressure was not at goal, even on home readings. She was taking her medications regularly. She was scheduled to establish with Dr. Brady Berman for her chronic obstructive pulmonary disease. Review of Systems Constitutional: Negative for appetite change, diaphoresis, fever and unexpected weight change. HENT: Negative. Respiratory: Positive for shortness of breath and wheezing. Negative for chest tightness. Cardiovascular: Negative for chest pain, palpitations and leg swelling. Gastrointestinal: Negative. Genitourinary: Negative. Musculoskeletal: Negative. Negative for arthralgias. Neurological: Negative. ACTIVE PROBLEM LIST Hypothyroidism White Coat Syndrome With Hypertension Chronic Obstructive Pulmonary Disease (Hcc) Solitary Lung Nodule Social History Tobacco Use Smoking status: Former Packs/day: 0.50 Years: 30.00 Pack years: 15.00 Types: Cigarettes Quit date: 06/18/2001 Years since quittin.2 Smokeless tobacco: Never Vaping Use Vaping Use: Never used Substance Use Topics Alcohol use: Yes Alcohol/week: 2.0 standard drinks Types: 2 Shots of liquor per week Drug use: Never ALLERGIES No Known Allergies Current Outpatient Medications Medication Sig levothyroxine (SYNTHROID) 100 mcg tablet Take 100 mcg by mouth once daily. losartan-hydroCHLOROthiazide (HYZAAR) 50-12.5 mg per tablet losartan 50 mg-hydrochlorothiazide 12.5 mg tablet TAKE 1 TABLET BY MOUTH EVERY DAY xdijbfgqthz-vylbczlnm-vmotigtc (TRELEGY ELLIPTA) 100-62.5-25 mcg inhalation powder Trelegy Ellipta 100 mcg-62.5 mcg-25 mcg powder for inhalation INHALE 1 PUFF INTO THE LUNGS EVERY DAY FOR 30 DAYS calcium/magnesium/vitamin D2 (ONE-A-DAY CALCIUM PLUS ORAL) Take by mouth. vitamin B complex (B-100 ORAL) Take by mouth. albuterol HFA (VENTOLIN HFA) 90 mcg/actuation inhaler Inhale 2 Puffs as instructed every 4 hours as needed for wheezing/shortness of breath. No current facility-administered medications for this visit. Objective BP 149/79 (BP Site: Left Arm, BP Position: Sitting, BP Cuff Size: Regular Adult) Pulse 82 Resp 20 Wt 46.3 kg (102 lb) BMI 19.59 kg/m? Physical Exam Constitutional: General: She is not in acute distress. HENT: Head: Normocephalic. Eyes: Conjunctiva/sclera: Conjunctivae normal. Neck: Vascular: No carotid bruit. Cardiovascular: Rate and Rhythm: Normal rate and regular rhythm. Heart sounds: No murmur heard. No gallop. Pulmonary: Effort: No respiratory distress. Breath sounds: No rhonchi or rales. Comments: Occasional wheeze. Abdominal: Palpations: Abdomen is soft. Musculoskeletal: Right lower leg: No edema. Left lower leg: No edema. Lymphadenopathy: Cervical: No cervical adenopathy. Neurological: General: No focal deficit present. Mental Status: She is alert. Gait: Gait normal. Component Latest Ref Rng AND Units 08/16/2022 WBC 3.70 - 11.00 k/uL 3.87 RBC 3.90 - 5.20 m/uL 4.75 Hemoglobin 11.5 - 15.5 g/dL 15.0 Hematocrit 36.0 - 46.0 % 42.8 MCV 80.0 - 100.0 fL 90.1 MCH 26.0 - 34.0 pg 31.6 MCHC 30.5 - 36.0 g/dL 35.0 RDW-CV 11.5 - 15.0 % 13.8 Platelet Count 150 - 400 k/uL 400 MPV 9.0 - 12.7 fL 9.6 Neut% % 47.4 Abs Neut (ANC) 1.45 - 7.50 k/uL 1.84 Lymph% % 37.5 Abs Lymph 1.00 - 4.00 k/uL 1.45 George% % 14.5 Abs George <0.87 k/uL 0.56 Eosin% % 0.0 Abs Eosin <0.46 k/uL <0.03 Baso% % 0.3 Abs Baso <0.11 k/uL <0.03 Immature Gran % % 0.3 IMMATURE GRANS (ABS) <0.10 k/uL <0.03 NRBC /100 WBC 0.0 Absolute nRBC <0.01 k/uL <0.01 DTYPE Auto Protein, Total 6.3 - 8.0 g/dL 7.1 Albumin 3.9 - 4.9 g/dL 4.5 Calcium 8.5 - 10.2 mg/dL 9.6 Bilirubin, Total 0.2 - 1.3 mg/dL 0.5 Alkaline Phosphatase 34 - 123 U/L 64 AST 13 - 35 U/L 36 (H) ALT 7 - 38 U/L 21 Glucose 74 - 99 mg/dL 97 BUN 7 - 21 mg/dL 12 Creatinine 0.58 - 0.96 mg/dL 0.62 Sodium 136 - 144 mmol/L 131 (L) Potassium 3.7 - 5.1 mmol/L 4.1 Chloride 97 - 105 mmol/L 93 (L) CO2 22 - 30 mmol/L 26 Anion Gap 9 - 18 mmol/L 12 eGFR >=60 mL/min/1.73mA? 92 Cholesterol, Total <200 mg/dL 232 (H) Triglyceride <150 mg/dL 60 HDL Cholesterol >39 mg/dL 125 Non HDL Cholesterol <130 mg/dL 107 Fasting Time hrs 14 VLDL Cholesterol <30 mg/dL 12 TC:HDL Ratio <5.10 1.86 LDL Cholesterol <100 mg/dL 95 LDL:HDL Ratio <2.54 0.76 TSH 0.270 - 4.200 mIU/L 4.460 (H) Assessment and Plan 1. Medicare annual wellness visit, subsequent - ICD9: V70.0, ICD10: Z00.00 (primary diagnosis) See wellness note. 2. Hypothyroidism, unspecified type - ICD9: 244.9, ICD10: E03.9 - Instructed patient on importance of t (more content not included)... [facility] 08-07-2022 Miscellaneous Notes Follow-up WITH DR COBURN in 3 months (October) Adrianna Tabor APRN.CNP Patient called stating that power had gone out at her first appt with Godwin Tabor. She states someone from the office was to contact her to schedule her next appt. Unable to find documentation of when that should be. Please call patient and advise. documented in this encounter [facility] 07-25-2022 Note HNO ID: [id number] Author: Adrianna Tabor APRN.CNP Service: ? Author Type: Nurse Practitioner Type: Progress Notes Filed: 07/25/2022 11:59 AM Note Text: CC: Patient presents with: Establish Care HPI Anitra Le is a 76 year old female who presents today for above. Previous PCP in [place], Dr. Nic Armstrong. They recently moved to [place]. Denies any concerns or issues today. White coat syndrome with hypertension Medication changes:No Taking all medications as prescribed: Yes Side effects: No Home BP's: No Denies: headache, chest pain, palpitations and peripheral edema. Last 3 Encounter BP Readings: Date: BP: 07/25/2022 132/80 Chronic obstructive pulmonary disease (HCC) Managed by pulmonology in [place]. She is scheduled to establish with [facility]m Dr. Berman. Reports increased SOB with exertion. Denies frequent cough, hemoptysis. Using albuterol inhaler 2-3 times a day. Hypothyroidism Taking levothyroxine daily on an empty stomach. Denies: fatigue, constipation, diarrhea, tremors, weight gain, hair loss, dry skin, cold intolerance, heat intolerance, trouble swallowing and neck pain/pressure. She has lost about 10 lbs due to stress with moving to [place]. Weight has stabilized and starting to gain back gradually. REVIEW OF SYSTEMS See HPI PAST MEDICAL HISTORY Diagnosis Date Abducens nerve palsy left eye Age-related macular degeneration Chronic obstructive pulmonary disease (HCC) 07/25/2022 CKD (chronic kidney disease) Hypertension 07/25/2022 Hypothyroidism 07/25/2022 Leukopenia Mixed hyperlipidemia Osteoarthritis Osteopenia Solitary lung nodule 07/25/2022 Uterine prolapse PAST SURGICAL HISTORY Procedure Laterality Date COLONOSCOPY SCREENING 2010 LIGATE FALLOPIAN TUBE 1976 TONSILLECTOMY AND ADENOIDECTOMY ALLERGIES Patient has no known allergies. MEDICATIONS levothyroxine (SYNTHROID) 100 mcg tablet Take 100 mcg by mouth once daily. losartan-hydroCHLOROthiazide (HYZAAR) 50-12.5 mg per tablet losartan 50 mg-hydrochlorothiazide 12.5 mg tablet TAKE 1 TABLET BY MOUTH EVERY DAY vdvebggarxm-xgerqqnrp-idsjcepl (TRELEGY ELLIPTA) 100-62.5-25 mcg inhalation powder Trelegy Ellipta 100 mcg-62.5 mcg-25 mcg powder for inhalation INHALE 1 PUFF INTO THE LUNGS EVERY DAY FOR 30 DAYS calcium/magnesium/vitamin D2 (ONE-A-DAY CALCIUM PLUS ORAL) Take by mouth. vitamin B complex (B-100 ORAL) Take by mouth. albuterol HFA (VENTOLIN HFA) 90 mcg/actuation inhaler Inhale 2 Puffs as instructed every 4 hours as needed for wheezing/shortness of breath. FAMILY HISTORY Problem Relation Age of Onset Hypertension Mother Lung Cancer Mother COPD Father Social History Tobacco Use Smoking status: Former Packs/day: 0.50 Years: 30.00 Pack years: 15.00 Types: Cigarettes Quit date: 06/18/2001 Years since quittin.1 Smokeless tobacco: Never Vaping Use Vaping Use: Never used Substance Use Topics Alcohol use: Yes Alcohol/week: 2.0 standard drinks Types: 2 Shots of liquor per week Drug use: Never PHYSICAL EXAM BP 132/80 Pulse 88 Resp 18 Ht 153.7 cm (5' 0.5 ) Wt 46.3 kg (102 lb) BMI 19.59 kg/m? General Appearance: well appearing, in no acute distress, alert Neck: Thyroid normal size and symmetric without palpable nodules, No adenopathy Lungs: Lungs diminished throughout. No wheezing, rhonchi, rales. Heart: RRR without murmur, gallop, or rubs. No ectopy Ext: no edema in LE bilaterally, good distal pulses Health maintenance reviewed with patient: HEPATITIS C SCREENING Never done DIABETES SCREEN Never done BONE DENSITY Never done DTAP,TDAP,TD(1 - Tdap) due on 06/19/2012 SHINGRIX VACCINE(2 of 3) due on 08/12/2018 COVID-19 VACCINE(5 - Booster) due on 12/18/2021 ADVANCE DIRECTIVE DISCUSSION Never done DEPRESSION ASSESSMENT Never done INFLUENZA Completed PNEUMOCOCCAL: 65+ Completed DATA REVIEWED: Outside chart from previous PCP in Care Everywhere reviewed. Depression Screening 07/25/2022 PHQ-2 Score 0 Depression screening tool completed and reviewed. Based on score and interview, patient is not at risk for depression. Screening tool discussed with patient, and I recommended no further intervention at this time. ASSESSMENT/PLAN: 1. Chronic obstructive pulmonary disease, unspecified COPD type (HCC) - ICD9: 496, ICD10: J44.9 (primary diagnosis) Worsening. Scheduled with pulmonology. Continue with current inhalers. 2. Hypothyroidism, unspecified type - ICD9: 244.9, ICD10: E03.9 Continue with current dose - check TSH BLD 3. Primary hypertension - ICD9: 401.9, ICD10: I10 - fair control - factors affecting control of BP include white coat HTN. - Continue current medication(s) - Recommended regular aerobic exercise. - Recommend home blood pressure monitoring, to bring results in on next visit - Goal of BP <130/80 - LIPID PANEL BASIC - COMP METABOLIC PANEL - CBC + DIFF 4. Weight loss - ICD9: 783.21, ICD10: R63.4 Pat (more content not included)... [facility] 07-25-2022 Note HNO ID: [id number] Author: Rocio [facility] Service: ? Author Type: ? Type: Progress Notes Filed: 07/25/2022 10:51 AM Note Text: OPENED IN ERROR [facility] 07-25-2022 Instructions Adrianna Tabor APRN.CNP - 07/25/2022 10:57 AM EST Recombinant shingles vaccine (Shingrix) is recommended; 2 doses 2-6 months apart. Please read information, check with your insurance, and schedule vaccination at your local pharmacy. A prescription is not required. If you are certain you have coverage to receive this vaccine in the office, we can schedule this for you. documented in this encounter [facility] 07-25-2022 History of Present illness Narrative CC: Patient presents with: Establish Care HPI Anitra Le is a 76 year old female who presents today for above. Previous PCP in [place], Dr. Nic Armstrong. They recently moved to [place]. Denies any concerns or issues today. White coat syndrome with hypertension Medication changes:No Taking all medications as prescribed: Yes Side effects: No Home BP's: No Denies: headache, chest pain, palpitations and peripheral edema. Last 3 Encounter BP Readings: Date: BP: 07/25/2022 132/80 Chronic obstructive pulmonary disease (HCC) Managed by pulmonology in [place]. She is scheduled to establish with [facility]m Dr. Berman. Reports increased SOB with exertion. Denies frequent cough, hemoptysis. Using albuterol inhaler 2-3 times a day. Hypothyroidism Taking levothyroxine daily on an empty stomach. Denies: fatigue, constipation, diarrhea, tremors, weight gain, hair loss, dry skin, cold intolerance, heat intolerance, trouble swallowing and neck pain/pressure. She has lost about 10 lbs due to stress with moving to [place]. Weight has stabilized and starting to gain back gradually. REVIEW OF SYSTEMS See HPI PAST MEDICAL HISTORY Diagnosis Date Abducens nerve palsy left eye Age-related macular degeneration Chronic obstructive pulmonary disease (HCC) 07/25/2022 CKD (chronic kidney disease) Hypertension 07/25/2022 Hypothyroidism 07/25/2022 Leukopenia Mixed hyperlipidemia Osteoarthritis Osteopenia Solitary lung nodule 07/25/2022 Uterine prolapse PAST SURGICAL HISTORY Procedure Laterality Date COLONOSCOPY SCREENING 2010 LIGATE FALLOPIAN TUBE 1976 TONSILLECTOMY & ADENOIDECTOMY <AGE 12 ALLERGIES Patient has no known allergies. MEDICATIONS levothyroxine (SYNTHROID) 100 mcg tablet Take 100 mcg by mouth once daily. losartan-hydroCHLOROthiazide (HYZAAR) 50-12.5 mg per tablet losartan 50 mg-hydrochlorothiazide 12.5 mg tablet TAKE 1 TABLET BY MOUTH EVERY DAY omkyvonqhem-laprklvvy-nbqdzqsu (TRELEGY ELLIPTA) 100-62.5-25 mcg inhalation powder Trelegy Ellipta 100 mcg-62.5 mcg-25 mcg powder for inhalation INHALE 1 PUFF INTO THE LUNGS EVERY DAY FOR 30 DAYS calcium/magnesium/vitamin D2 (ONE-A-DAY CALCIUM PLUS ORAL) Take by mouth. vitamin B complex (B-100 ORAL) Take by mouth. albuterol HFA (VENTOLIN HFA) 90 mcg/actuation inhaler Inhale 2 Puffs as instructed every 4 hours as needed for wheezing/shortness of breath. FAMILY HISTORY Problem Relation Age of Onset Hypertension Mother Lung Cancer Mother COPD Father Social History Tobacco Use Smoking status: Former Packs/day: 0.50 Years: 30.00 Pack years: 15.00 Types: Cigarettes Quit date: 06/18/2001 Years since quittin.1 Smokeless tobacco: Never Vaping Use Vaping Use: Never used Substance Use Topics Alcohol use: Yes Alcohol/week: 2.0 standard drinks Types: 2 Shots of liquor per week Drug use: Never PHYSICAL EXAM BP 132/80 Pulse 88 Resp 18 Ht 153.7 cm (5' 0.5 ) Wt 46.3 kg (102 lb) BMI 19.59 kg/m General Appearance: well appearing, in no acute distress, alert Neck: Thyroid normal size and symmetric without palpable nodules, No adenopathy Lungs: Lungs diminished throughout. No wheezing, rhonchi, rales. Heart: RRR without murmur, gallop, or rubs. No ectopy Ext: no edema in LE bilaterally, good distal pulses Health maintenance reviewed with patient: HEPATITIS C SCREENING Never done DIABETES SCREEN Never done BONE DENSITY Never done DTAP,TDAP,TD(1 - Tdap) due on 06/19/2012 SHINGRIX VACCINE(2 of 3) due on 08/12/2018 COVID-19 VACCINE(5 - Booster) due on 12/18/2021 ADVANCE DIRECTIVE DISCUSSION Never done DEPRESSION ASSESSMENT Never done INFLUENZA Completed PNEUMOCOCCAL: 65+ Completed DATA REVIEWED: Outside chart from previous PCP in Care Everywhere reviewed. Depression Screening 07/25/2022 PHQ-2 Score 0 Depression screening tool completed and reviewed. Based on score and interview, patient is not at risk for depression. Screening tool discussed with patient, and I recommended no further intervention at this time. ASSESSMENT/PLAN: 1. Chronic obstructive pulmonary disease, unspecified COPD type (HCC) - ICD9: 496, ICD10: J44.9 (primary diagnosis) Worsening. Scheduled with pulmonology. Continue with current inhalers. 2. Hypothyroidism, unspecified type - ICD9: 244.9, ICD10: E03.9 Continue with current dose - check TSH BLD 3. Primary hypertension - ICD9: 401.9, ICD10: I10 - fair control - factors affecting control of BP include white coat HTN. - Continue current medication(s) - Recommended regular aerobic exercise. - Recommend home blood pressure monitoring, to bring results in on next visit - Goal of BP <130/80 - LIPID PANEL BASIC - COMP METABOLIC PANEL - CBC + DIFF 4. Weight loss - ICD9: 783.21, ICD10: R63.4 Patient attributes to stress and poor appetite, gradually gaining back Prescription instructions reviewed with patient as applicable. Potential red flag symptoms discussed with the patient. Reviewed appropriate action plan to take if red flag symptoms occur. Patient agreeable to treatment plan. Adrianna Tabor APRN.CNP documented in this encounter [facility] 07-25-2022 History of Present illness Narrative OPENED IN ERROR documented in this encounter [facility] Diagnosis Chronic obstructive pulmonary disease, unspecified COPD type (HCC)- Primary Hypothyroidism, unspecified type Primary hypertension Unspecified essential hypertension Weight loss Loss of weight [facility] Diagnosis COVID-19 virus infection- Primary [facility] Diagnosis White coat syndrome with hypertension- Primary Hypothyroidism, unspecified type [facility] Diagnosis Lower resp. tract infection- Primary Other diseases of respiratory system, not elsewhere classified Acute cough [facility] Diagnosis White coat syndrome with hypertension- Primary Chronic obstructive pulmonary disease, unspecified COPD type (HCC) Tachycardia Tachycardia, unspecified [facility] Outpatient Procedure (Routine) - Pending Review Specialty Diagnoses / Procedures Referred By Contac t Referred To [facility] [place] Diagnoses Obstructive chronic bronchitis without exacerbation (HCC) Procedures SPIROMETRY WITH DILATOR IF OBSTRUCTED BRNCDILAT RSPSE SPMTRY PRE&POST-BRNCDILAT Melly Moran MD [address] [place] [address] [address] Referral ID Status Reason Start Date Expiration Date Visits Requested Visits Authorized [id number] Pending Review Auto-Generat ed Referral 10/22/2022 08/24/2023 1 1 * Outpatient Procedure (Routine) - Authorized Specialty Diagnoses / Procedures Referred By Contac t Referred To [facility] [place] Diagnoses Obstructive chronic bronchitis without exacerbation (HCC) Procedures SPIROMETRY - BASELINE AND POST DILATOR BRNCDILAT RSPSE SPMTRY PRE&POST-BRNCDILAT Melly Moran MD [address] [place] [address] [address] Referral ID Status Reason Start Date Expiration Date Visits Requested Visits Authorized [id number] Authorized Auto-Generat ed Referral 07/25/2022 08/24/2023 1 1 [facility] for referral (narrative)* Outpatient Procedure (Routine) - Closed Specialty Diagnoses / Procedures Referred By Contac t [facility]erred [facility] Diagnoses Tachycardia Procedures ECG COMPLETE ECG ROUTINE ECG W/LEAST 12 LDS W/I&R Harvey Coburn MD [address] [place] [address] Heart And Vascular [address] [address] Referral ID Status Reason Start Date Expiration Date V isits Requested Visits Authorized [id number] Closed Auto-Generate d Referral 12/11/2022 12/11/2023 1 1 [facility] Summary Purpose Family History No Family History Records Found Advance Directives No Advanced Directives Records Found Additional Source Comments Source Comments (unrecognize d section and content) In the event this informatio n is protected by the Federal Confidentiality of Alcohol and Drug Abuse Patient Records regulations: The Federal rules restrict any use of the information to criminally investigate or prosecute any alcohol or drug abuse patient.[facility] the event this information is protected by the Federal Confidentiality of Alcohol and Drug Abuse Patient Records regulations: The Federal rules restrict any use of the information to criminally investigate or prosecute any alcohol or drug abuse patient.[facility] the event this information is protected by the Federal Confidentiality of Alcohol and Drug Abuse Patient Records regulations: The Federal rules restrict any use of the information to criminally investigate or prosecute any alcohol or drug abuse patient.[facility] the event this information is protected by the Federal Confidentiality of Alcohol and Drug Abuse Patient Records regulations: The Federal rules restrict any use of the information to criminally investigate or prosecute any alcohol or drug abuse patient.[facility] the event this information is protected by the Federal Confidentiality of Alcohol and Drug Abuse Patient Records regulations: The Federal rules restrict any use of the information to criminally investigate or prosecute any alcohol or drug abuse patient.[facility] the event this information is protected by the Federal Confidentiality of Alcohol and Drug Abuse Patient Records regulations: The Federal rules restrict any use of the information to criminally investigate or prosecute any alcohol or drug abuse patient.[facility] the event this information is protected by the Federal Confidentiality of Alcohol and Drug Abuse Patient Records regulations: The Federal rules restrict any use of the information to criminally investigate or prosecute any alcohol or drug abuse patient.[facility] the event this information is protected by the Federal Confidentiality of Alcohol and Drug Abuse Patient Records regulations: The Federal rules restrict any use of the information to criminally investigate or prosecute any alcohol or drug abuse patient.[facility] the event this information is protected by the Federal Confidentiality of Alcohol and Drug Abuse Patient Records regulations: The Federal rules restrict any use of the information to criminally investigate or prosecute any alcohol or drug abuse patient.[facility] the event this information is protected by the Federal Confidentiality of Alcohol and Drug Abuse Patient Records regulations: The Federal rules restrict any use of the information to criminally investigate or prosecute any alcohol or drug abuse patient.[facility] the event this information is protected by the Federal Confidentiality of Alcohol and Drug Abuse Patient Records regulations: The Federal rules restrict any use of the information to criminally investigate or prosecute any alcohol or drug abuse patient.[facility] the event this information is protected by the Federal Confidentiality of Alcohol and Drug Abuse Patient Records regulations: The Federal rules restrict any use of the information to criminally investigate or prosecute any alcohol or drug abuse patient.[facility] Care Teams (unrecognized sec tion and content) Loss Control Technician Relationship Specialty Start Date End Date Harvey Coburn MD [address] [place] [address] PCP - General Internal Medicine 07/25/22 Loss Control Technician Relationship Specialty Start Date End Date Harvey Coburn MD [address] [place] [address] PCP - General Internal Medicine 07/25/22 Loss Control Technician Relationship Specialty Start Date End Date Harvey Coburn MD [address] [place] [address] PCP - General Internal Medicine 07/25/22 Loss Control Technician Relationship Specialty Start Date End Date Harvey Coburn MD [address] [place] [address] PCP - General Internal Medicine 07/25/22 Loss Control Technician Relationship Specialty Start Date End Date Harvey Coburn MD [address] [place] [address] PCP - General Internal Medicine 07/25/22 Loss Control Technician Relationship Specialty Start Date End Date Harvey Coburn MD [address] [place] [address] PCP - General Internal Medicine 07/25/22 Loss Control Technician Relationship Specialty Start Date End Date Harvey Coburn MD [facility] [place] [address] PCP - General Internal Medicine 07/25/22 Loss Control Technician Relationship Specialty Start Date End Date Harvey Coburn MD [address] [place] [id number] PCP - General Internal Medicine 07/25/22 Loss Control Technician Relationship Specialty Start Date End Date Harvey Coburn MD [address] [place] [address] PCP - General Internal Medicine 07/25/22 Reason for Visit (unrecogniz ed section and content) Reason Comments Patient Question Reason Onset Date Comments Covid Positive 09/18/2022 Cough; has COPD; sore throat Reason Comments Covid Positive Covid19 Concern Reason Comments 2 month follow up Reason Comments Received Outside Medical Records Cough Reason Comments Patient Update Reason Comments Cough Difficulty breathing x 3 days Reason Comments Express Care follow-up INFORMATION SOURCE (unrecogn ized section and content) FOR RECORDS PERTAINING TO PATIENTS WHO ARE OR HAVE BEEN ENROLLED IN A CHEMICAL DEPENDENCY/SUBSTANCEABUSE PROGRAM, SOME INFORMATION MAY BE OMITTED. This clinical summary was aggregated from multiple sources. Caution should be exercised in using it in the provision of clinical care. This summary normalizes information from multiple sources, and as a consequence, information in this document may materially change the coding, format and clinical context of patient data. In addition, data may be omitted in some cases. CLINICAL DECISIONS SHOULD BE BASED ON THE PRIMARY CLINICAL RECORDS. [employer] provides no warranty or guarantee of the accuracy or completeness of information in this document.
== END | disposition home or self-care (01) ==
PROVIDERS: PCP Family Medicine; Referring Provider Family Medicine; Visit Provider Family Medicine
DX: E87.1 Hypo-osmolality and hyponatremia (principal); R60.0 Localized edema
CPT/HCPCS: 36415; 80048; 93970

== ENCOUNTER 2023-07-28 22:06 | Inpatient (IN) | payer MEDICARE, SELFPAY ==
[2023-07-28 22:00] VITALS: BMI 19.6
[2023-07-28 22:02] VITALS: BP 117/93; PULSE 96; RESP 18; TEMP 36.6; O2SAT 99
--- NOTE | 2023-07-28 22:08 | PCM.HP.STD ---
HPI - General General Date of Admission: 07/28/23 Date of Service: 07/28/23 Chief Complaint: Shortness of breath progressive worsening for about 1 week HPI Narrative JAVIER BARRON, is a 77 F with history of COPD, follows Dr. Berman is being directly admitted from [facility] for progressive worsening of shortness of breath for 1 week. She mainly feels on exertion. She also had a cough predominantly dry cough with some nasal congestion and dripping in throat a week ago but got better for last 2 days. She was started on prednisone and completed 5 days by PCP but is still did not get better. At home she is not on oxygen, uses maintenance triple therapy. She also has intermittent leg swelling on and off for 4 weeks and was told that probably due to verapamil. She said she also put on water pill probably HCTZ but was taken off because of hyponatremia. Denies any fever chills or diaphoresis. No chest pain pressure or tightness. Involvement ED, her respiratory rate was 28/min and 1 time put on BiPAP but currently tapered down to 2 L of oxygen. The most recent vitals BP 117/93, heart rate 96/min, pulse ox 99% on 2 L of oxygen afebrile. Labs, chest x-ray and EKG reviewed and discussed in assessment and plan. Past medical history: Hypertension, COPD Past medical history, COPD, hold for SBP less than 120 mmHg and hypothyroidism. Home medications reviewed. Social history: Patient is a former smoker. Quit smoking. Past surgical history reviewed. Family history: Her mother had lung cancer. Father and sister COPD Note: By mistake this visit was put with different MRN because of mistake and date of . Her original chart has . The chart was reviewed for past medical history home medication past surgical history and pulmonary clinic, Dr. Berman's visit. [facility] Medical History COPD (chronic obstructive pulmonary disease) Former smoker Hypertension Hypothyroidism Osteoporosis Home Medications albuterol sulfate 2.5 mg/3 mL (0.083 %) solution for nebulization 2.5 mg inhalation Q6H PRN 07/28/23 [History Last Taken Unknown] cholecalciferol (vitamin D3) 25 mcg (1,000 unit) capsule 25 mcg PO DAILY 07/28/23 [History Last Taken Unknown] fluticasone fur. 200 mcg-umeclid 62.5 mcg-vilant 25 mcg inhalat.powder (Trelegy Ellipta) See Rx Instructions inhalation Q24H 07/28/23 [History Last Taken Unknown] levothyroxine 100 mcg tablet 100 mcg PO DAILY 07/28/23 [History Last Taken Unknown] losartan 100 mg tablet 100 mg PO DAILY blood pressure 07/28/23 [History Last Taken Unknown] verapamil 300 mg capsule 24hr pellet CT,ext.release 300 mg PO DAILY 07/28/23 [History Last Taken Unknown] Social History Smoking Status: Former smoker ROS ROS Narrative Constitutional: Reports fatigue and weakness. No fever. HEENT: Reports systems reviewed and no addt'l complaints, except as documented Respiratory/Chest: Mild wheezing and some chest congestion.. CVS: Denies chest pressure pain or history of CAD. Gastrointestinal: Denies coffee ground emesis, hematemesis or vomiting Genitourinary: Denies burning urination or new urinary tract symptoms Musculoskeletal: Mild intermittent ankle swelling. Denies acute joint pain or limited range of motion. No acute injury Neurologic: Denies seizure-like symptoms. skin: No ulcer. No rash Endocrinology: Reports systems reviewed and no addt'l complaints, except as documented Hematologic/Lymphatic: Reports systems reviewed and no addt'l complaints, except as documented Rest 14 ROS are negative except as mentioned in HPI Vital Signs Vital Signs Vital Signs: 07/28/23 22:02 Temperature 97.8 F Temperature Source Oral Pulse Rate 96 Respiratory Rate 18 Blood Pressure 117/93 H Blood Pressure Mean 101 Blood Pressure Source Monitor Blood Pressure Position Semi-Fowlers Blood Pressure Location Left Arm Pulse Ox 99 Oxygen Delivery Method Nasal Cannula Oxygen Flow Rate (L/min) 2 Weight Weight: 107 lb 5.842 oz Body Mass Index (BMI) 19.6 Physical Exam Narrative General: Alert, Oriented x3, Cooperative HEENT: Atraumatic, PERRLA, EOMI, Normocephalic Oral: Oral mucosa dry. No Gingival or Mucosal Lesions/ Ulcerations Neck: Supple, No JVD, Negative Carotid Bruits Chest wall/Lungs: Air entry severely diminished in both lungs. Mild expiratory rhonchi. Cardiovascular: Regular rate, Regular Rhythm, Normal S1, Normal S2, No M/G/R Abdomen: Bowel Sounds Present, Soft, Non Tender, Non-Distended : No dysuria. No renal angle tenderness. No suprapubic tenderness. Extremities: Mild bilateral pitting ankle edema, Capillary Refill Less than 3 Seconds Skin: No rashes, No breakdown Musculoskeletal: No Tenderness to Palpation of Joints or Extremities. ROM intact. Neurological: Cranial nerves II-XII grossly intact, DTR 2+/4. No acute focal neurological deficit. Psych/Mental Status: Normal Affect, Appropriate. Assessment & Plan Assessment/Plan (1) COPD exacerbation: PLAN: Plan This is a 77-year-old female being admitted from outside [facility] ER for COPD exacerbation 1. COPD exacerbation, exact etiology unclear suspected viral bronchitis: Patient is being admitted in PCU. Patient not on home oxygen. Patient is being managed on scheduled bronchodilator, IV Solu-Medrol, Mucinex, incentive spirometry and Pep. Chest x-ray individually reviewed and does not show acute radiographic abnormality. Twelve-lead EKG individually reviewed and shows normal sinus rhythm, possible TIM. 98 bpm, QTc 420 ms. Labs reviewed and shows sodium 133, glucose 137 otherwise CMP normal. High sensitive troponin normal. INR normal. CBC shows platelet count 419, neutrophil 90% lymphocyte 5% otherwise normal. Total WBC count 8.9 thousand. SARS-CoV-2, flu a and B and RSV PCR is negative. IV fluid normal saline for hyponatremia. 2. Intermittent leg swelling: Patient had venous duplex within the last week and was negative for acute DVT. Patient also was started on HCTZ. 2D echo is ordered to rule out heart failure. BNP ordered. His EGD was taken off because of hyponatremia. 3. Hypertension: Blood pressure is controlled. Continue home medication verapamil and losartan. 4. Hypothyroidism: TSH tomorrow AM. On levothyroxine continued. DVT prophylaxis: Lovenox 40 mill subcu daily. Living will/advanced directive/end of life care: Patient does not have living will or advanced directive. She does not have designated power of claim attorney for health but her near the bedside is next of kin. After discussion of benefits/risks procedures involved with full code, DNR CC arrest and DNR CC, the patient and her opted for full code. Patient does want artificial life support including intubation, tube feed, ventilator and/chest compression, central venous catheter, vasopressor and DC shock if needed Total time spent in [id number] encounter in discussion of advanced directive 17 minutes. Charges/Coding Visit Charges Inpatient E&M: 68778 Init Hosp L3 Procedures Hospitalists Procedures: 53862 Advncd Care Plan 30 Min
[2023-07-28 23:25] VITALS: PULSE 113; RESP 28; O2SAT 96
[2023-07-28] MEDS: Ipratropium/Albuterol Sulfate 3 ML AMPUL.NEB INHALATION (23:25)
[2023-07-29] VITALS (9 sets, daily range): BP systolic 117–159; BP diastolic 69–96; PULSE 88–104; RESP 16–22; TEMP 36.2–36.8; O2SAT 92–96
[2023-07-29] MEDS: Verapamil SR 240 MG Tablet PO (00:01)
[2023-07-29] MEDS: guaiFENesin 1,200 MG Tablet 1200 MG PO ×3 (00:01→20:53)
[2023-07-29] MEDS: Enoxaparin 40 MG/0.4 ML Syringe SC ×2 (00:01→20:53)
[2023-07-29] MEDS: CLARIFY ORDER 1 EACH NOTE (00:02)
[2023-07-29] MEDS: Ipratropium/Albuterol Sulfate 3 ML AMPUL.NEB INHALATION ×3 (03:28→20:20)
[2023-07-29] MEDS: Levothyroxine 100 MCG Tablet PO (05:13)
--- NOTE | 2023-07-29 06:47 | PCM.PN.HOSP ---
Reason for Visit Reason for Visit: Diagnoses Chronic obstructive pulmonary disease with (acute) exacerbation (07/28/23) Subjective Subjective Patient with no acute events overnight per self and nursing report except she does report that she feels more dyspneic after aerosol treatments and is requesting to transition back to her home inhaler. Discussed her underlying swelling to her ankles and she does note that when her legs are up this improves therefore did note her plan still for echocardiogram on Sunday but lower suspicion for anything nefarious. Patient notes breathing is much easier since admission and denies any marked coughing or wheezing events. Patient denies fevers, chills, nausea, emesis, abdominal pain, chest pain. Objective Data Objective Data Vital Signs: Vital Signs Temp Pulse Resp BP Pulse Ox O2 Del Method O2 Flow Rate 98.3 F 96 20 H 155/87 H 96 Room Air 2 07/29/23 04:05 07/29/23 04:05 07/29/23 04:05 07/29/23 04:05 07/29/23 04:05 07/29/23 04:05 07/29/23 04:05 Oxygen Flow Rate (L/min) 2 Oxygen Delivery Method Room Air Weight: 107 lb 5.842 oz Body Mass Index (BMI) 19.6 Intake & Output: Intake and Output for Last 24 Hours 07/27/23 07/28/23 07/29/23 23:59 23:59 23:59 Intake Total 480 / 480 Balance 480 / 480 Lab / Micro Data 07/29/23 06:56 07/29/23 06:50 Micro: Microbiology 07/28/23 23:10 Mucosa - Nasopharyngeal Respiratory Panel (PCR) - Final Physical Exam Narrative Physical Examination: General: Awake, alert, oriented x 3 and cooperative, seated upright in the PCU bed, notes feeling markedly improved, not currently on any supplemental oxygen. Skin: Normal color, normal turgor, no icterus, no cyanosis. HEENT: AT/NC, EOMI, PERRLA, MMM. Lungs: Severely diffusely diminished, greater bases, appropriate respiratory rate, no rales, ronchi or wheezing but again very diminished movement Heart: Regular rate and rhythm; no gallop, rub audible. Abdomen: Soft, thin cachectic habitus, NTTP, ND, normal BS. Extremities: No cyanosis, no clubbing, no current evidence of any ankle edema although she notes it is primarily when she is up and walking a lot. Neurological: Patient awake, alert, oriented as noted, cognitive function intact; pupils equally reactive to light and accommodation, cranial nerves grossly normal, moving all 4 extremities, no focal deficits, strength improved, mildly to moderately global decreased. Psychiatric: Affect appears mildly fatigued otherwise normal, no acute evidence of depressive or anxiety feelings. Assessment & Plan Assessment/Plan (1) COPD exacerbation: PLAN: Plan The patient is a 77 y/o F w/ PMHx: COPD, Former tobacco use, HTN, Hypothyroidism who presents to the [facility] on 07/28/23 as a direction admission secondary to history of 1 week of worsening dyspnea, fatigue, dry cough with nasal congestion and wheezing with outpatient evaluation with initiation of prednisone however despite this she did not feel improved prompting ED evaluation. #1. Acute on Chronic COPD exacerbation, failed outpatient intervention,: Admitted as a direct admit 07/28/2023, failed outpatient intervention, will maintain on oxygen with wean as tolerated to room air, per patient preference will transition back to her home inhaler, PRN albuterol, IV methylprednisolone, HOB, IS parameters, currently maintained per admitting physician on azithromycin. 07/29/2023 clinically appears improved. She does follow with pulmonary medicine Dr. Ollie Berman. Pending #2 evaluation given clinical improvement could potentially consider discharge 07/30/2023 after echocardiogram obtained. #2. Intermittent bilateral lower extremity minimal ankle swelling: Patient recently started on verapamil, unclear if related but it seems to only happen when she is up and moving, improves with rest and legs elevated. BNP 104.2, EKG upon presentation with no concerning findings. Echocardiogram is currently requested. At this time we will de-escalate off cardiac telemetry status. May add Thee wrap's as needed. #3. Hypertension: Will maintain on losartan, verapamil pending further evaluation of intermittent lower extremity swelling is noted, PRN hydralazine. #4. Hypothyroidism: We will continue patient home levothyroxine regimen. #5. Former tobacco use: Encourage continued tobacco cessation. #6. Evidence severe protein calorie malnutrition: Notably cachectic habitus, obvious muscle and fat loss, suspect likely secondary to underlying disease processes/COPD, nutrition consulted, supplementations per their discretion. #7. DVT prophylaxis: Lovenox. #8. CODE STATUS: Full Code. Charges/Coding Visit Charges Inpatient E&M: 39186 Subs Hosp L2
[2023-07-29 07:31] LABS: Absolute Lymphocyte Count 0.38 X10^3/uL (0.83-4.51); Absolute Neutrophil Count 3.5 X10^3/uL (2.0-7.7); Hematocrit 40.4 % (37-47); Hemoglobin 13.6 g/dL (12.0-15.0); Lymphocyte # 0.38 X10^3/ul (0.83-4.51); Lymphocyte % 8.9 % (19-41); Mean Corp Hgb Conc 33.7 g/dL (32-36); Monocyte# 0.39 X10^3/uL; Monocyte% 9.2 % (0-10); NRBC Flagged by Analyzer 0 % (0-5); Neutrophil # 3.45 X10^3/uL (2.7-7.7); Neutrophil % 81.2 % (47-70); POSITIVE DIFFERENTIAL YES; Platelet Count 340 K/mm3 (150-450); RBC Distribution Width SD 47.5 fl (35.1-43.9); Red Blood Count 4.39 M/mm3 (4.2-5.4); White Blood Count 4.3 K/mm3 (4.4-11.0)
[2023-07-29 07:53] LABS: Phosphorus 3.2 mg/dL (2.5-4.9)
[2023-07-29 07:54] LABS: BNP,B-Type NATRIURETIC PEPTIDE 104.2 pg/mL (0-100)
[2023-07-29 07:59] LABS: Anion Gap 6 (5-15); BUN 12 mg/dL (7-18); BUN/Creat Ratio 20.3 RATIO (10-20); Calcium,Total 9.1 mg/dL (8.5-10.1); Chloride 102 mmol/L (98-107); Creatinine, Serum 0.59 mg/dL (0.55-1.02); EST Glomerular Filtration Rate 105 mL/min (>60); Est Glom Filt Rate - Afr Amer 127 mL/min (>60); Estimated Creatinine Clearance 45.28 ml/min; Glucose 105 mg/dL (74-106); Magnesium 2.4 mg/dL (1.6-2.6); Potassium 3.9 mmol/L (3.5-5.1); Sodium Level 139 mmol/L (136-145)
[2023-07-29] MEDS: Azithromycin 250 MG Tablet 500 MG PO (08:19)
[2023-07-29] MEDS: Cholecalciferol (VIT D3) 25 MCG TABLET (1,000 UNITS) PO (08:19)
[2023-07-29] MEDS: Losartan Potassium 100 MG Tablet PO (08:19)
[2023-07-29] MEDS: Budesonide Respules 0.5 MG/2 ML AMPUL.NEB. INHALATION ×2 (10:21→20:20)
--- NOTE | 2023-07-29 10:54 | NURSING ---
Patient consented for Sheila, daughter, to have information
[2023-07-29] MEDS: VERAPAMIL HCL 300 MG CAP24H.PCT PO (15:57)
[2023-07-30] VITALS (15 sets, daily range): BP systolic 151–178; BP diastolic 75–99; PULSE 82–98; RESP 18–22; TEMP 36.6–37; O2SAT 86–100
[2023-07-30] MEDS: hydrALAZINE 50 MG Tablet PO ×3 (03:01→21:20)
[2023-07-30] MEDS: Levothyroxine 100 MCG Tablet PO (05:02)
--- NOTE | 2023-07-30 05:55 | ECHOD_ITS ---
Reason For Study: Leg Swelling, COPD Procedure This was a 2D Doppler, Color Flow transthoracic echocardiogram. Exam performed portable in patient room. Left Ventricle Normal LV size. The estimated ejection fraction is 70 %. No evidence for diastolic dysfunction. No regional wall motion abnormalities noted. Right Ventricle Normal RV size. Normal systolic function. Atria Normal left atrium. Normal right atrium. No doppler evidence for ASD. Bubble contrast study negative for right to left interatrial shunt. Mitral Valve There is no mitral valve stenosis. No mitral valve insufficiency. Tricuspid Valve There is no tricuspid stenosis. Trivial tricuspid valve insufficiency. Unable to estimate RV systolic pressure due to insufficient tricuspid regurgitant envelope. Aortic Valve Trisinus/trileaflet aortic valve. There is no aortic stenosis. No aortic valve insufficiency. Pulmonic Valve There is no pulmonic valvular stenosis. No pulmonic valve insufficiency. Great Vessels Normal aortic root. Pericardium/Pleural No pericardial effusion. Medication Performed a rapid injection of agitated mix of 9 cc saline and 1cc air to assess for atrial septal defect. MMode/2D Measurements & Calculations LVIDd: 4.3 cm IVSd: 0.94 cm Ao root diam: 3.0 cm LVIDs: 2.8 cm LVPWd: 0.84 cm LA dimension: 3.7 cm RVDd: 3.3 cm FS: 34.6 % LAV(MOD-bp): 22.6 ml LA A4 area: 11.8 cm2 RA A4 area: 12.6 cm2 LAV(MOD-bp) Indexed: 15.5 ml/m2 LAV(MOD-sp2): 16.5 ml LAV(MOD-sp4): 27.3 ml TAPSE: 1.9 cm Time Measurements MV dec time: 0.17 sec Doppler Measurements & Calculations MV E max francesco: 84.8 cm/sec Lat Peak E' Francesco: 10.8 cm/sec Med Peak E' Francesco: 8.9 cm/sec MV A max francesco: 115.1 cm/sec E/E' lat: 7.8 E/E' med: 9.5 MV E/A: 0.74 MV V2 max: 147.9 cm/sec MV P1/2t max francesco: 126.3 cm/sec Ao V2 max: 139.1 cm/sec MV max P.8 mmHg MV P1/2t: 66.4 msec Ao max P.8 mmHg MV V2 mean: 86.3 cm/sec MV dec slope: 556.6 cm/sec2 MV mean P.5 mmHg MVA(P1/2t): 3.3 cm2 MV V2 VTI: 22.4 cm LV V1 max: 118.6 cm/sec PA V2 max: 78.1 cm/sec LV V1 max P.7 mmHg ECHO/Echo Complete Interpretation Summary The estimated ejection fraction is 70 %. No evidence for diastolic dysfunction. Ordering Physician: Rob Barber Performed By: Aden Erwin RCS
[2023-07-30 07:45] LABS: Absolute Lymphocyte Count 0.29 X10^3/uL (0.83-4.51); Absolute Neutrophil Count 4.1 X10^3/uL (2.0-7.7); Hematocrit 38.8 % (37-47); Hemoglobin 13.2 g/dL (12.0-15.0); Lymphocyte # 0.29 X10^3/ul (0.83-4.51); Mean Corpuscular Hgb 30.8 pg (27.0-32.0); Mean Corpuscular Volume 90.7 fL (81-99); Monocyte# 0.37 X10^3/uL; Monocyte% 7.7 % (0-10); NRBC Flagged by Analyzer 0 % (0-5); Neutrophil # 4.14 X10^3/uL (2.7-7.7); Neutrophil % 85.9 % (47-70); POSITIVE DIFFERENTIAL YES; Platelet Count 335 K/mm3 (150-450); RBC Distribution Width CV 13.8 % (11.6-14.6); RBC Distribution Width SD 46.2 fl (35.1-43.9); Red Blood Count 4.28 M/mm3 (4.2-5.4); White Blood Count 4.8 K/mm3 (4.4-11.0)
[2023-07-30] MEDS: Azithromycin 250 MG Tablet 500 MG PO (07:46)
[2023-07-30] MEDS: Cholecalciferol (VIT D3) 25 MCG TABLET (1,000 UNITS) PO (07:46)
[2023-07-30] MEDS: Losartan Potassium 100 MG Tablet PO (07:46)
[2023-07-30] MEDS: guaiFENesin 1,200 MG Tablet 1200 MG PO ×2 (07:47→21:20)
[2023-07-30 07:58] LABS: ALB/GLOB Ratio 1.2 RATIO (0.9-2.4); AST(SGOT) 26 U/L (15-37); Alanine Aminotransfer ALT/SGPT 32 U/L (13-56); Albumin, Serum 3.4 g/dL (3.2-5.0); Alkaline Phosphatase 68 U/L (45-117); Anion Gap 6 (5-15); BUN 20 mg/dL (7-18); BUN/Creat Ratio 41.4 RATIO (10-20); Calcium,Total 8.7 mg/dL (8.5-10.1); Chloride 101 mmol/L (98-107); Creatinine, Serum 0.48 mg/dL (0.55-1.02); EST Glomerular Filtration Rate 132 mL/min (>60); Est Glom Filt Rate - Afr Amer 160 mL/min (>60); Estimated Creatinine Clearance 45.28 ml/min; Globulin 2.9 g/dL (2.2-4.2); Glucose 104 mg/dL (74-106); Potassium 3.9 mmol/L (3.5-5.1); Protein, Total 6.3 g/dL (6.4-8.2); Sodium Level 138 mmol/L (136-145)
--- NOTE | 2023-07-30 09:41 | PCM.PN.HOSP ---
Reason for Visit Reason for Visit: Diagnoses Chronic obstructive pulmonary disease with (acute) exacerbation (07/28/23) Subjective Subjective Still short of breath with exertion. Patient has been up ambulating in room and does feel short of breath. Objective Data Objective Data Vital Signs: Vital Signs Temp Pulse Resp BP Pulse Ox O2 Del Method O2 Flow Rate 36.6 C 87 22 H 177/93 H 92 Room Air 2 07/30/23 07:36 07/30/23 07:45 07/30/23 07:36 07/30/23 07:36 07/30/23 07:59 07/30/23 07:59 07/30/23 04:14 Oxygen Flow Rate (L/min) 2 Oxygen Delivery Method Room Air Weight: 48.7 kg Body Mass Index (BMI) 19.6 Intake & Output: Intake and Output for Last 24 Hours 07/28/23 07/29/23 07/30/23 23:59 23:59 23:59 Intake Total 840 / 840 240 / 240 Balance 840 / 840 240 / 240 Medical Nutrition Assessment Dietitian: Malnutrition Criteria Met Start: 07/29/23 13:04 Freq: Status: Active Protocol: Document 07/29/23 13:05 AG (Rec: 07/29/23 13:05 AG Desktop) Nutrition Malnutrition Evidence of Malnutrition Exists Yes Malnutrition (severe): Chronic Evidenced By Suboptimal Energy Intake ( Severe),Physical Changes ( Severe) Clinical Problem Chronic Disease or Condition Related Malnutrition Etiology chronic, severe malnutrition related to inadequate energy intake w/ increased energy needs d/t COPD Signs/Symptoms as evidenced by estimated PO intake meeting <75% of estimated energy needs > 3 months, Severe muscle wasting/ fat loss evident per physical exam in orbital, clavicle, and acromion areas, BMI 19.6 Status Active Problem Recommendation Dietitian Recommendations/Changes regular diet as tolerated, declines Ensure at this time. Pt to order milkshakes/ smoothies w/ beneprotein as desired Lab / Micro Data 07/30/23 06:55 07/30/23 06:55 Labs: Laboratory Results - last 24 hr 07/30/23 06:55: WBC 4.8, RBC 4.28, Hgb 13.2, Hct 38.8, MCV 90.7, MCH 30.8, MCHC 34.0, RDW Std Deviation 46.2 H, RDW Coeff of Sherita 13.8, Plt Count 335, MPV 9.0, Immature Gran % (Auto) 0.400, Neut % (Auto) 85.9 H, Lymph % (Auto) 6.0 L, Lassen % (Auto) 7.7, Eos % (Auto) 0.0, Baso % (Auto) 0.0, Absolute Neuts (auto) 4.1, Absolute Lymphs (auto) 0.29 L, Nucleated RBC % 0, Sodium 138, Potassium 3.9, Chloride 101, Carbon Dioxide 31.0, Anion Gap 6, BUN 20 H, Creatinine 0.48 L, Estim Creat Clear Calc 45.28, Est GFR (MDRD) Af Amer 160, Est GFR (MDRD) Non-Af 132, BUN/Creatinine Ratio 41.4 H, Glucose 104, Calcium 8.7, Total Bilirubin 0.40, AST 26, ALT 32, Alkaline Phosphatase 68, Total Protein 6.3 L, Albumin 3.4, Globulin 2.9, Albumin/Globulin Ratio 1.2 Micro: Microbiology 07/28/23 23:10 Mucosa - Nasopharyngeal Respiratory Panel (PCR) - Final Physical Exam Const alert and no apparent distress HEENT head/scalp atraumatic Resp Resp Narrative: Faint wheezes bilaterally. Cardio regular rate, regular rhythm, S1 normal heart sound and S2 normal heart sound GI normal to inspection, nondistended, normoactive bowel sounds Extremity General Extremity: edema bilateral lower extremity Details: mild Assessment & Plan Assessment/Plan (1) COPD exacerbation: PLAN: Plan Acute on Chronic COPD exacerbation, failed outpatient intervention methylpred BDs Hypertension, accelerated Patient has been taking verapamil for some time but developed swelling in her lower extremities after initiation of verapamil. As verapamil dose has been increased over the years, the swelling is overall worsened. Patient had been on HCTZ but was stopped due to hyponatremia with sodium down to 120s. Discussed with the patient and her , we will discontinue the verapamil given the swelling that she has. Continue with losartan 100 mg daily. Increase hydralazine to 50 mg 3 times daily. Echocardiogram today showed an EF of 70%. Chronic conditions Hypertension: Will maintain on losartan, verapamil pending further evaluation of intermittent lower extremity swelling is noted, PRN hydralazine. Hypothyroidism: We will continue patient home levothyroxine regimen. Former tobacco use: Encourage continued tobacco cessation. Evidence severe protein calorie malnutrition: Notably cachectic habitus, obvious muscle and fat loss, suspect likely secondary to underlying disease processes/COPD, nutrition consulted, supplementations per their discretion. DVT prophylaxis: Lovenox. CODE STATUS: Full Code. Charges/Coding Visit Charges Inpatient E&M: 44707 Subs Hosp L2
--- NOTE | 2023-07-30 09:50 | CASEMGMT ---
BARRY FERREIRA Face to Face with patient for initial transition planning/care coordination assessment. RN CM introduced self and role at [facility]. Patient lying in bed, alert and oriented. Patient willing to participate in assessment and is able to answer all questions appropriately. Care providers, pharmacy, and demographics verified. Patient wishes to discharge home, denies need for home health at this time. Patient states she has no further needs or concerns at this time. CM to follow for discharge planning needs that may arise. PCP: Lily Specialists: Piotr Berman, consulting solution manager; SHALONDA, cordwood cutter helper Preferred Pharmacy: [facility] Insurance: [employer] Prescription Benefit: yes Living Will/HPOA: none, would like to complete advance directive, SW notified LNOK: Significant other Living Arrangements: Patient lives with significant other in a 2 story home with bed and bath on first floor. Patient states she is independent at home. Transportation: self, significant other DME/HHC: Patient has nebulizer and pulse ox at home. No previous HHC or SNF. Will monitor for home oxygen, prefers [facility]. Disposition Plan: Patient to discharge home with family support and follow-up plans in place. Will monitor for home oxygen. Ivory SERVIN, RN, CM
[2023-07-30] MEDS: Ipratropium/Albuterol Sulfate 3 ML AMPUL.NEB INHALATION ×2 (13:25→20:12)
[2023-07-30] MEDS: 0.9% Saline Lock 10 ML Syringe IV ×2 (14:04→23:12)
[2023-07-30] MEDS: Senna/Docusate Sodium 1 Tablet 2 TABLET PO (14:05)
--- NOTE | 2023-07-30 15:20 | CASEMGMT ---
Per RN CM patient requested to complete advance directives. SW completed a Healthcare Power of Manager Cancer (HCPOA) and a Healthcare Living Will with patient. Copies were made and given to patient along with originals. A copy of each was also placed in patient's chart. Sondra JC
[2023-07-30] MEDS: Budesonide Respules 0.5 MG/2 ML AMPUL.NEB. INHALATION (20:12)
[2023-07-30] MEDS: Enoxaparin 40 MG/0.4 ML Syringe SC (21:20)
[2023-07-31] VITALS (11 sets, daily range): BP systolic 143–176; BP diastolic 72–93; PULSE 78–100; RESP 16–22; TEMP 36.5–36.9; O2SAT 91–98
[2023-07-31] MEDS: Levothyroxine 100 MCG Tablet PO (06:06)
[2023-07-31] MEDS: hydrALAZINE 50 MG Tablet PO (06:06)
[2023-07-31] MEDS: 0.9% Saline Lock 10 ML Syringe IV ×2 (06:38→13:15)
[2023-07-31] MEDS: Ipratropium/Albuterol Sulfate 3 ML AMPUL.NEB INHALATION ×2 (07:02→13:24)
[2023-07-31] MEDS: Budesonide Respules 0.5 MG/2 ML AMPUL.NEB. INHALATION (07:02)
--- NOTE | 2023-07-31 08:07 | PN.HOSP_ITS ---
Reason for Visit Reason for Visit: Diagnoses Chronic obstructive pulmonary disease with (acute) exacerbation (07/28/23) Subjective Subjective Feeling better. Anxious about her BP earlier being in the 170s. Objective Data Objective Data Vital Signs: Vital Signs Temp Pulse Resp BP Pulse Ox O2 Del Method O2 Flow Rate 36.6 C 78 18 176/93 H 95 Room Air 0 07/31/23 06:00 07/31/23 06:06 07/31/23 06:00 07/31/23 06:06 07/31/23 06:00 07/31/23 06:00 07/31/23 06:00 Oxygen Flow Rate (L/min) [ 4 AMBULATING with Oxygen #3] Oxygen Flow Rate (L/min) [ 3 AMBULATING with Oxygen #2] Oxygen Flow Rate (L/min) [ 2 AMBULATING with Oxygen #1] Oxygen Flow Rate (L/min) [ 0 AMBULATING on Room Air] Oxygen Flow Rate (L/min) [At 0 REST on Room Air] Oxygen Flow Rate (L/min) 1 Oxygen Delivery Method Room Air Weight: 48.7 kg Body Mass Index (BMI) 19.6 Intake & Output: Intake and Output for Last 24 Hours 07/29/23 07/30/23 07/31/23 23:59 23:59 23:59 Intake Total 840 / 840 720 / 720 Balance 840 / 840 720 / 720 Medical Nutrition Assessment Dietitian: Malnutrition Criteria Met Start: 07/29/23 13:04 Freq: Status: Active Protocol: Document 07/29/23 13:05 AG (Rec: 07/29/23 13:05 Desktop) Nutrition Malnutrition Evidence of Malnutrition Exists Yes Malnutrition (severe): Chronic Evidenced By Suboptimal Energy Intake ( Severe),Physical Changes ( Severe) Clinical Problem Chronic Disease or Condition Related Malnutrition Etiology chronic, severe malnutrition related to inadequate energy intake w/ increased energy needs d/t COPD Signs/Symptoms as evidenced by estimated PO intake meeting <75% of estimated energy needs > 3 months, Severe muscle wasting/ fat loss evident per physical exam in orbital, clavicle, and acromion areas, BMI 19.6 Status Active Problem Recommendation Dietitian Recommendations/Changes regular diet as tolerated, declines Ensure at this time. Pt to order milkshakes/ smoothies w/ beneprotein as desired Lab / Micro Data 07/30/23 06:55 07/30/23 06:55 Micro: Microbiology 07/28/23 23:10 Mucosa - Nasopharyngeal Respiratory Panel (PCR) - Final Radiography Diagnostic Testing: Radiology Impression Echocardiogram 07/30/23 05:55 Interpretation Summary The estimated ejection fraction is 70 %. No evidence for diastolic dysfunction. Ordering Physician: Rob Barber Performed By: Aden Erwin RCS Physical Exam Const alert and no apparent distress Constitutional Narrative: standing in the room. off oxygen. no respiratory distress. no conversational dyspnea. HEENT head/scalp atraumatic and moist oral mucous membranes Resp normal respiratory effort, no retractions, no use of accessory muscles and clear to auscultation bilaterally Cardio regular rate, regular rhythm, S1 normal heart sound and S2 normal heart sound Assessment & Plan Assessment/Plan (1) COPD exacerbation: PLAN: Plan Acute on Chronic COPD exacerbation, * failed outpatient intervention * Prednisone burst Hypertension, accelerated * Patient has been taking verapamil for some time but developed swelling in her lower extremities after initiation of verapamil. As verapamil dose has been increased over the years, the swelling is overall worsened. Patient had been on HCTZ but was stopped due to hyponatremia with sodium down to 120s. * Discussed with the patient and her , we will discontinue the verapamil given the swelling that she has. * Continue with losartan 100 mg daily. Increase hydralazine to 75 mg 3 times daily. * Echocardiogram today showed an EF of 70%. * Discussed with patient that she may need further optimization of her blood pressure medication regimen as outpatient. Told she and her that I would not start any diuretics at this point in time until we know how her blood pressure plays out in the coming days. Patient will follow-up appointment with cardiology this week and patient will also follow with your primary care doctor in the coming weeks as well. Chronic conditions * Hypertension: Will maintain on losartan, verapamil pending further evaluation of intermittent lower extremity swelling is noted, PRN hydralazine. * Hypothyroidism: We will continue patient home levothyroxine regimen. * Former tobacco use: Encourage continued tobacco cessation. * Evidence severe protein calorie malnutrition: Notably cachectic habitus, obvious muscle and fat loss, suspect likely secondary to underlying disease processes/COPD, nutrition consulted, supplementations per their discretion. DVT prophylaxis: Lovenox. CODE STATUS: Full Code.
[2023-07-31] MEDS: Losartan Potassium 100 MG Tablet PO (08:32)
[2023-07-31] MEDS: guaiFENesin 1,200 MG Tablet 1200 MG PO (08:32)
[2023-07-31] MEDS: Cholecalciferol (VIT D3) 25 MCG TABLET (1,000 UNITS) PO (08:32)
[2023-07-31] MEDS: Azithromycin 250 MG Tablet 500 MG PO (08:32)
--- NOTE | 2023-07-31 11:13 | DS.PCM_ITS ---
Providers Date of Admission: 07/28/23 Primary Care Physician: Dr. Don Bautista MD Reason For Visit: COPD EXA Diagnosis Discharge Diagnosis (1) COPD exacerbation: Status: Chronic Code(s): J44.1 - Chronic obstructive pulmonary disease with (acute) exacerbation Plan Acute on Chronic COPD exacerbation, * failed outpatient intervention * Prednisone burst Hypertension, accelerated * Patient has been taking verapamil for some time but developed swelling in her lower extremities after initiation of verapamil. As verapamil dose has been increased over the years, the swelling is overall worsened. Patient had been on HCTZ but was stopped due to hyponatremia with sodium down to 120s. * Discussed with the patient and her , we will discontinue the verapamil given the swelling that she has. * Continue with losartan 100 mg daily. Increase hydralazine to 75 mg 3 times daily. * Echocardiogram today showed an EF of 70%. * Discussed with patient that she may need further optimization of her blood pressure medication regimen as outpatient. Told she and her that I would not start any diuretics at this point in time until we know how her blood pressure plays out in the coming days. Patient will follow-up appointment with cardiology this week and patient will also follow with your primary care doctor in the coming weeks as well. Chronic conditions * Hypertension: Will maintain on losartan, verapamil pending further evaluation of intermittent lower extremity swelling is noted, PRN hydralazine. * Hypothyroidism: We will continue patient home levothyroxine regimen. * Former tobacco use: Encourage continued tobacco cessation. * Evidence severe protein calorie malnutrition: Notably cachectic habitus, obv ious muscle and fat loss, suspect likely secondary to underlying disease processes/COPD, nutrition consulted, supplementations per their discretion. DVT prophylaxis: Lovenox. CODE STATUS: Full Code. Medications at Discharge Home Medications albuterol sulfate 2.5 mg/3 mL (0.083 %) solution for nebulization 2.5 mg inhalation Q6H PRN 07/28/23 cholecalciferol (vitamin D3) 25 mcg (1,000 unit) capsule 25 mcg PO DAILY 07/28/23 fluticasone fur. 200 mcg-umeclid 62.5 mcg-vilant 25 mcg inhalat.powder (Trelegy Ellipta) See Rx Instructions inhalation Q24H 07/28/23 levothyroxine 100 mcg tablet 100 mcg PO DAILY 02/10/24 losartan 100 mg tablet 100 mg PO DAILY blood pressure 07/28/23 albuterol sulfate 90 mcg/actuation aerosol inhaler 2 puff inhalation Q6H PRN SOB/Wheezing 07/29/23 hydralazine 25 mg tablet 75 mg (3 x 25 mg) PO TID #270 tabs 07/31/23 prednisone 20 mg tablet 40 mg (2 x 20 mg) PO DAILY #10 tabs 07/31/23 Hospital Course Operations None Procedures None Summary of Care Provided Minutes Spent on Discharge: 35 Medical Records Data Medical Nutrition Assessment Dietitian: Malnutrition Criteria Met Start: 07/29/23 13:04 Freq: Status: Active Protocol: Document 07/31/23 10:58 AG (Rec: 07/31/23 10:58 AG Desktop) Nutrition Malnutrition Evidence of Malnutrition Exists Yes Malnutrition (severe): Chronic Evidenced By Suboptimal Energy Intake ( Severe),Physical Changes ( Severe) Clinical Problem Chronic Disease or Condition Related Malnutrition Etiology chronic, severe malnutrition related to inadequate energy intake w/ increased energy needs d/t COPD Signs/Symptoms as evidenced by estimated PO intake meeting <75% of estimated energy needs > 3 months, Severe muscle wasting/ fat loss evident per physical exam in orbital, clavicle, and acromion areas, BMI 19.6 Status Active Problem Recommendation Dietitian Recommendations/Changes regular diet as tolerated, declines Ensure at this time. Pt to order milkshakes/ smoothies w/ beneprotein as desired Weight / BMI Weight Weight: 48.7 kg Body Mass Index (BMI) 19.6 ABG / Lab / Microbiology Data 07/30/23 06:55 07/30/23 06:55 Microbiology: Microbiology 07/28/23 23:10 Mucosa - Nasopharyngeal Respiratory Panel (PCR) - Final Radiography Diagnostic Testing: Radiology Impression Echocardiogram 07/30/23 05:55 Interpretation Summary The estimated ejection fraction is 70 %. No evidence for diastolic dysfunction. Ordering Physician: Rob Barber Performed By: Aden Erwin RCS D/C Instructions Discharge Diet: No restrictions Meaningful Use Info Meaningful Use Diagnoses (Choose all that apply): None applicable Discharge Plan Admission Admit Date/Time: 07/28/23 22:06 Primary Reason for Your Visit: COPD exacerbation. Attending Provider: Desmond Stone Primary Care Provider: Don Bautista Consulting Providers: Rob Barber; Krystyna Kothari Instructions Additional Instructions / Restrictions: You presented with an exacerbation of your COPD and you responded well with steroids and breathing treatments. You will be on prednisone for 5 days. You do not require oxygen upon discharge. Have made some adjustments to your blood pressure medications. Previously, the hydrochlorothiazide that you have taking is causing your sodium to go low. Unfortunately cannot take that medication because of that. I have stopped the verapamil that you are taking because of the swelling that you are experiencing. I have added hydralazine 75 mg 3 times daily to help you with her blood pressure control. There may need to be future adjustments to your blood pressure medication in the future but that will be with your primary care doctor and/or cardiology. Discharge Orders/Prescriptions Prescriptions: New hydralazine 25 mg Tablet 75 mg PO TID Qty: 270 0RF prednisone 20 mg tablet 40 mg PO DAILY Qty: 10 0RF Continued levothyroxine 100 mcg tablet 100 mcg PO DAILY Patient Comments: 1 TABLET DAILY losartan 100 mg tablet 100 mg PO DAILY Patient Comments: 1 TABLET DAILY Trelegy Ellipta 200-62.5-25 mcg blister with device See Rx Instructions INHALATION Q24H Patient Comments: INHALE 1 PUFF DAILY Rx Instructions: 200 mcg inhaled every 24 hours; albuterol sulfate 2.5 mg /3 mL (0.083 %) solution for nebulization 2.5 mg inhalation Q6H PRN Patient Comments: INHALE 2.5 MG (3 ML) EVERY 4 HOURS NEEDED FOR SHORTNESS OF BREATH OR FOR WHEEZE cholecalciferol (vitamin D3) 25 mcg (1,000 unit) capsule 25 mcg PO DAILY albuterol sulfate 90 mcg/actuation HFA aerosol inhaler 2 puff INHALATION Q6H PRN Discontinued verapamil 300 mg capsule, [address] 300 mg PO DAILY Patient Comments: TAKE 1 (ONE) CAPSULE BY MOUTH DAILY Referrals / Follow Up: Don Bautista MD [Primary Care Provider] - Within 2 Weeks Disposition Disposition (needs filled in before D/C Order can be placed): Home, Self Care Charges/Coding Visit Charges Inpatient E&M: 95526 Disch Hosp >30min
--- NOTE | 2023-07-31 11:56 | PHA.DC_ITS ---
Pharmacy [facility] Pharmacy Service has performed discharge medication reconciliation and counseling for this patient. 1. HYDRALAZINE 75MG PO TID 2. PREDNISONE 40MG PO DAILY X 5 DAYS The patient's discharge medication list was reviewed for discrepancies and discrepancies were resolved. The patient was counseled on the following discharge medications and changes in medications for homegoing were reviewed. The Reason for Use, instructions for use, and potential side effects were reviewed for all new medications. The patient's questions regarding all of their medications were answered. The patient was able to verbally demonstrate an understanding of their discharge medications. Patient counseled by pharmacy specialist, Uli. Medications at Discharge Home Medications albuterol sulfate 2.5 mg/3 mL (0.083 %) solution for nebulization 2.5 mg inhalation Q6H PRN 07/28/23 cholecalciferol (vitamin D3) 25 mcg (1,000 unit) capsule 25 mcg PO DAILY 07/28/23 fluticasone fur. 200 mcg-umeclid 62.5 mcg-vilant 25 mcg inhalat.powder (Trelegy Ellipta) See Rx Instructions inhalation Q24H 07/28/23 levothyroxine 100 mcg tablet 100 mcg PO DAILY 07/28/23 losartan 100 mg tablet 100 mg PO DAILY blood pressure 07/28/23 albuterol sulfate 90 mcg/actuation aerosol inhaler 2 puff inhalation Q6H PRN SOB/Wheezing 07/29/23 hydralazine 25 mg tablet 75 mg (3 x 25 mg) PO TID #270 tabs 07/31/23 prednisone 20 mg tablet 40 mg (2 x 20 mg) PO DAILY #10 tabs 07/31/23
[2023-07-31] MEDS: hydrALAZINE 25 MG Tablet 75 MG PO (13:12)
== END 2023-07-31 14:25 | disposition home or self-care (01) | DRG 190 ==
PROVIDERS: Family Medicine; Admitting Provider Internal Medicine; PCP Family Medicine
DX: J44.1 Chronic obstructive pulmonary disease with (acute) exacerbation (principal); E43 Unspecified severe protein-calorie malnutrition; Z68.1 Body mass index [BMI] 19.9 or less, adult; E03.9 Hypothyroidism, unspecified; I10 Essential (primary) hypertension; Z11.52 Encounter for screening for COVID-19; Z79.51 Long term (current) use of inhaled steroids; Z79.890 Hormone replacement therapy; Z79.899 Other long term (current) drug therapy; Z87.891 Personal history of nicotine dependence
CPT/HCPCS: 36415; 80048; 80053; 83735; 83880; 84100; 85025; 87633; 93306; 94640; 94668; 97802; 97803; A4216

== ENCOUNTER → 2023-08-02 | Outpatient (CLI) | payer MEDICARE, SELFPAY ==
[2022-12-08 08:40] VITALS: BMI 19.7
[2023-08-02 13:15] LABS: Anion Gap 3 (5-15); BUN 16 mg/dL (7-18); Calcium,Total 9.2 mg/dL (8.5-10.1); Chloride 102 mmol/L (98-107); Creatinine, Serum 0.67 mg/dL (0.55-1.02); EST Glomerular Filtration Rate 91 mL/min (>60); Est Glom Filt Rate - Afr Amer 110 mL/min (>60); Glucose 87 mg/dL (74-106); Potassium 3.9 mmol/L (3.5-5.1); Sodium Level 139 mmol/L (136-145)
--- OUTSIDE RECORDS SUMMARY | 2023-08-02 14:49 | XMS RPT_ITS | CCD ---
Author Name Unknown Address [address] [place] [address] Organization [facility] Care Team Providers Care Child Protection Specialist Name Role Phone Almas LI, Harvey Pat Primary Care Provider FABIO HENNESSY Referring Unavailable COBURN, HARVEY Pat Primary Care Unavailable COBURN, HARVEY Pat Primary Care Unavailable OLDER, ADRIANNA Attending Unavailable COBURN, HARVEY Pat Primary Care Unavailable COBURN, HARVEY Pat Referring Unavailable COBURN, HARVEY Pat Primary Care Unavailable COBURN, HARVEY Pat Primary Care Unavailable MELLY BERMAN Attending Unavailable MARELY, MELLY ZARATE Referring Unavailable [...] Unavailable COBURN, HARVEY Pat Primary Care Unavailable DR SANAM VASQUEZ DO Primary Care Physician [phone] FANY SUERO DO Attending Unavailable DR SANAM VASQUEZ DO Primary Care Unavailable Medications Current Medications Medication Drug Class(es) Dates Sig (Normalized) Sig (Original) Albuterol (Eqv-ProAir HFA) 90 mcg/inh inhalation aerosol (1 source) Start: 07-28-2023 take 2 puff(s) by inhalation every four hours as needed Albuterol (Eqv-ProAir HFA) 90 mcg/inh inhalation aerosol INHALE 2 PUFFS EVERY 4 HOURS NEEDED FOR WHEEZE OR FOR SHORTNESS OF BREATH Start Date: 07/28/23 Status: Ordered amoxicillin 875 mg / clavulanate 125 mg oral tablet (2 sources) Penicillin-class Antibacterial Start: 12-06-2022 End: 12-13-2022 take 1 tablet by mouth twice daily amoxicillin-clav ulanic acid (AUGMENTIN) 875-125 mg per tablet Take 1 tablet by mouth twice daily for 7 days. 14 tablet 0 12/06/2022 12/13/2022 Active Completed/Discontinued Medications Medication Drug Class(es) Dates Sig (Normalized) Sig (Original) [id number] 200 actuat albuterol 0.09 mg/actuat metered dose [...] Vital Sign Value Performing Clinician Patience conrad 07-28-2023 19:38-0500 Diastolic Blood Pressure Non-Invasive 77 mm[Hg] NIDAL CHOUJAA DO [facility] 07-28-2023 19:38-0500 Heart rate 100 /min NIDAL CHOUJAA DO [facility] 07-28-2023 19:38-0500 Respiratory rate 26 /min NIDAL CHOUJAA DO [facility] 07-28-2023 19:38-0500 Systolic Blood Pressure Non-Invasive 131 mm[Hg] NIDAL CHOUJAA DO [facility] 07-28-2023 18:29-0500 Body temperature 98.96 [degF] NIDAL CHOUJAA DO [facility] 07-28-2023 18:00-0500 Diastolic Blood Pressure Non-Invasive 73 mm[Hg] NIDAL CHOUJAA DO [facility] 07-28-2023 18:00-0500 Respiratory rate 24 /min NIDAL CHOUJAA DO [facility] 07-28-2023 18:00-0500 Systolic Blood Pressure Non-Invasive 139 mm[Hg] NIDAL CHOUJAA DO [facility] 07-28-2023 17:15-0500 Diastolic Blood Pressure Non-Invasive 74 mm[Hg] NIDAL CHOUJAA DO [facility] 07-28-2023 17:15-0500 Heart rate 105 /min NIDAL CHOUJAA DO [facility] 07-28-2023 17:15-0500 Respiratory rate 26 /min NIDAL CHOUJAA DO [facility] 07-28-2023 17:15-0500 Systolic Blood Pressure Non-Invasive 134 mm[Hg] NIDAL CHOUJAA DO [facility] 07-28-2023 17:09-0500 Heart rate 96 /min NIDAL CHOUJAA DO [facility] 07-28-2023 15:45-0500 Heart rate 96 /min NIDAL CHOUJAA DO [facility] 07-28-2023 15:40-0500 Heart rate 96 /min NIDAL CHOUJAA DO [facility] 07-28-2023 15:24-0500 Body temperature 97.52 [degF] NIDAL CHOUJAA DO [facility] 12-11-2022 17:05-0400 Diastolic blood pressure 84 mm[Hg] Harvey Coburn MD Work Phone: [facility] 12-11-2022 17:05-0400 Heart rate 85 /min Harvey Coburn MD Work Phone: [facility] 12-11-2022 17:05-0400 Systolic blood pressure 161 mm[Hg] Harvey Coburn MD Work Phone: [facility] 12-11-2022 16:54-0400 Body weight 46.72 kg Harvey Coburn MD Work Phone: [facility] 12-11-2022 16:54-0400 SaO2% (BldA) [Mass fraction] 96 % Harvey Coburn MD Work Phone: [facility] 12-06-2022 09:07-0400 Body temperature 97.81 [degF] Fabio Hennessy SUPERVISORY CLERK.SIGNING AGENT Work Phone: [facility] 12-06-2022 09:07-0400 Body weight 46.18 kg Fabio Hennessy SUPERVISORY CLERK.SIGNING AGENT Work Phone: [facility] 12-06-2022 09:07-0400 Diastolic blood pressure 78 mm[Hg] Fabio Hennessy SUPERVISORY CLERK.SIGNING AGENT Work Phone: [facility] 12-06-2022 09:07-0400 Heart rate 87 /min Fabio Hennessy SUPERVISORY CLERK.SIGNING AGENT Work Phone: [facility] 12-06-2022 09:07-0400 Respiratory rate 19 /min Fabio Hennessy SUPERVISORY CLERK.SIGNING AGENT Work Phone: [facility] 12-06-2022 09:07-0400 SaO2% (BldA) [Mass fraction] 98 % Fabio Hennessy SUPERVISORY CLERK.SIGNING AGENT Work Phone: [facility] 12-06-2022 09:07-0400 Systolic blood pressure 158 mm[Hg] Fabio Hennessy SUPERVISORY CLERK.SIGNING AGENT Work Phone: [facility] 10-23-2022 13:30-0400 Diastolic blood pressure 60 mm[Hg] Adrianna Older SUPERVISORY CLERK.SIGNING AGENT Work Phone: [facility] 10-23-2022 13:30-0400 Systolic blood pressure 110 mm[Hg] Adrianna Older SUPERVISORY CLERK.SIGNING AGENT Work Phone: [facility] 10-23-2022 13:13-0400 Body weight 46.72 kg Adrianna Older SUPERVISORY CLERK.SIGNING AGENT Work Phone: [facility] 10-23-2022 13:13-0400 Heart rate 101 /min Adrianna Older SUPERVISORY CLERK.SIGNING AGENT Work Phone: [facility] 10-23-2022 13:13-0400 Respiratory rate 22 /min Adrianna Older SUPERVISORY CLERK.SIGNING AGENT Work Phone: [facility] 10-23-2022 13:13-0400 SaO2% (BldA) [Mass fraction] 95 % Adrianna Older SUPERVISORY CLERK.SIGNING AGENT Work Phone: [facility] 09-18-2022 15:52-0400 Body temperature 97.11 [degF] Torsten Espitia MD Work Phone: [facility] 07-25-2022 11:51-0500 Diastolic blood pressure 80 mm[Hg] Adrianna Older SUPERVISORY CLERK.SIGNING AGENT Work Phone: [facility] 07-25-2022 11:51-0500 Systolic blood pressure 132 mm[Hg] Adrianna Older SUPERVISORY CLERK.SIGNING AGENT Work Phone: [facility] 07-25-2022 10:38-0500 Body height 153.7 cm Adrianna Older SUPERVISORY CLERK.SIGNING AGENT Work Phone: [facility] 07-25-2022 10:38-0500 Body weight 46.27 kg Adrianna Older SUPERVISORY CLERK.SIGNING AGENT Work Phone: [facility] 07-25-2022 10:38-0500 Heart rate 88 /min Adrianna Older SUPERVISORY CLERK.SIGNING AGENT Work Phone: [facility] 07-25-2022 10:38-0500 Respiratory rate 18 /min Adrianna Older SUPERVISORY CLERK.SIGNING AGENT Work Phone: [facility] Encounters Encounter Date Encounter Type Care Provider Facility Start: 07-28-2023 End: 07-28-2023 Emergency department patient visit [facility] Facility:B Start: 07-28-2023 End: 07-28-2023 Emergency department patient visit [facility] Start: 12-11-2022 End: 12-11-2022 ambulatory HARVEY COBURN Facility:[facility] Start: 12-11-2022 End: 12-11-2022 Patient encounter procedure Harvey Coburn MD Work Phone: [facility] Procedures Date Procedure Procedure Detail Performing Clinician Start: 12-11-2022 Ecg routine ecg w/le ast 12 lds i&r only [facility] Provider Start: 12-06-2022 Radiologic exam ches t 2 views Fabio Hennessy SUPERVISORY CLERK.SIGNING AGENT Work Phone: Start: 07-25-2021 Lipid panel [facility] Provid er Start: 07-25-2021 Thyrotropin [Units/v olume] in Serum or Plasma [facility] Provider Plan of Treatment Date Care Activity Detail Author Start: 10-16-2025 DIABETES SCREEN DIABETES SCREEN [facility] Start: 08-16-2025 DIABETES SCREEN DIABETES SCREEN [facility] Start: 12-12-2023 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 JUANY DISEASE VISIT ANNUAL PCP TEAM CHRONIC DISEASE VISIT [facility] Start: 12-12-2023 COVID-19 VACCINE (6 - Booster) COVID-19 VACCINE (6 - Booster) [facility] Immunizations Immunization Date Immunization Notes Care Provider Fa cility 06-19-2022 influenza, high dose seasonal, preservative-free Melly Berman MD Work Phone: [facility] 02-24-2022 COVID-19 original vaccine, booster dose, monovalent (MODERNA) Melly Berman MD Work Phone: [facility] Work Phone: 10-23-2021 COVID-19 original vaccine, full dose, monovalent (MODERNMichael) Melly Berman MD Work Phone: [facility] 04-19-2021 COVID-19 original vaccine, full dose, monovalent (BRIAN) Melly Berman MD Work Phone: [facility] 09-04-2020 COVID-19 original vaccine, full dose, monovalent (MODERNMichael) Melly Berman MD Work Phone: [facility] 07-23-2020 COVID-19 vaccine (UNSPECIFIED) Melly Berman MD Work Phone: [facility] 06-17-2018 zoster vaccine, live Cristhian Berman MD Work Phone: [facility] 01-02-2017 pneumococcal conjuga te vaccine, 13 valent Melly Berman MD Work Phone: [facility] 06-18-2015 pneumococcal polysaccharide vaccine, 23 valent Melly Berman MD Work Phone: [facility] 06-18-2012 TD(adult) unspecifie d formulation Melly Berman MD Work Phone: [facility] 09-26-2010 zoster vaccine, live Cristhian Berman MD Work Phone: [facility] Payers Date Payer Category Payer Medicare [id number] 2021 Medicare [id number] 1945 Unknown [id number] Social History Date Type Detail Facility Start: 07-25-2022 Tobacco smoking stat us ILIS Ex-smoker [facility] Work Phone: End: 06-18-2001 History of tobacco use Current smoker [facility] Work Phone: End: 06-18-2001 History of tobacco use Cigarette Smoker [facility] Work Phone: Start: 07-25-2022 End: 12-11-2022 Cigarettes smoked current (pack per day) - Reported 0.5 [facility] Start: 07-25-2022 Tobacco use and exposure Smoke less tobacco non-user [facility] Work Phone: Start: 07-25-2022 End: 12-11-2022 Alcohol intake Current drinker of alcohol (finding) [facility] Start: 1945 Sex Assigned At Not on file [facility] Start: 08-28-2022 History SDOH Alcohol Frequency 4 [facility] Start: 08-28-2022 End: 10-16-2022 History SDOH Alcohol Std Drinks 1 [facility] Start: 10-16-2022 History SDOH Alcohol Frequency 2 [facility] Start: 10-16-2022 History SDOH Social Connections Phone 5 [facility] Start: 10-16-2022 History SDOH Social Connections Living 8 [facility] Start: 10-16-2022 History SDOH Physica l Activity MPS 3 [facility] Functional Status Date Assessment Result Facility 07-28-2023 Functional Status Room check performed [facility] [place] Mental Status Date Assessment Result Facility 07-28-2023 Mental Status Orientation Oriented x 4 [facility] Clinical Notes 07-25-2022 to 07-31-2023 Patient InstructionsVicalbino Coburn MD - 12/11/2022 5:25 PM EDTPatient InstructionsFabio Hennessy APRN.SIGNING AGENT - 12/06/2022 9:34 AM EDTTelephone Encounter - Gertrude Morrow LPN - 12/04/2022 3:52 PM EDT Note Date & Type Note Facility 07-31-2023 Note . MICRO - Microbiology PROCEDURE: Urine Culture [*1] SOURCE: Urine, Clean Catch BODY SITE: COLLECTED DATE/TIME: 07/28/2023 19:09 EST RECEIVED DATE/TIME: 07/29/2023 13:14 EST START DATE/TIME: 07/29/2023 13:14 EST FREE TEXT SOURCE: FINAL REPORTS Final Report [] Verified Date/Time/Personnel: 07/31/2023 07:20 EST <10,000 cfu/ml. No Significant growth. Sensitivity not indicated. PRELIMINARY REPORTS Preliminary Report [] Verified Date/Time/Personnel: 07/30/2023 11:01 EST No growth to date Performing Locations *1: This test was performed at: [address], [address] [place] [address] ([place]) 07-29-2023 Note . MICRO - Microbiology PROCEDURE: Blood Culture (bacterial) [*1] SOURCE: Blood BODY SITE: COLLECTED DATE/TIME: 07/28/2023 15:45 EST RECEIVED DATE/TIME: 07/29/2023 13:07 EST START DATE/TIME: 07/29/2023 13:08 EST FREE TEXT SOURCE: PRELIMINARY REPORTS Preliminary Report [] Verified Date/Time/Personnel: 07/29/2023 13:59 EST Culture has been received in lab and is no growth to date. Routine cultures are held for 5 days. Performing Locations *1: This test was performed at: [address], [address] , [facility] ([place]) 07-29-2023 Note . MICRO - Microbiology PROCEDURE: Blood Culture (bacterial) [*1] SOURCE: Blood BODY SITE: COLLECTED DATE/TIME: 07/28/2023 15:38 EST RECEIVED DATE/TIME: 07/29/2023 13:07 EST START DATE/TIME: 07/29/2023 13:08 EST FREE TEXT SOURCE: PRELIMINARY REPORTS Preliminary Report [] Verified Date/Time/Personnel: 07/29/2023 13:59 EST Culture has been received in lab and is no growth to date. Routine cultures are held for 5 days. Performing Locations *1: This test was performed at: [facility], [address] [place] [address], [facility] , [facility] ([place]) 07-28-2023 Note ORIGINAL EXAMINATION: ONE XRAY VIEW OF THE CHEST 07/28/2023 4:49 pm COMPARISON: None. HISTORY: ORDERING SYSTEM PROVIDED HISTORY: Reason for Exam: fever, pain or tachypnea FINDINGS: Cardiomediastinal contour is normal. Atherosclerosis of the aorta. No focal consolidation or pulmonary edema. Bibasilar streaky atelectasis. No pneumothorax or large pleural effusion. No acute osseous abnormality. Air-filled stomach elevates the left hemidiaphragm. IMPRESSION: No acute radiographic abnormality. I have personally reviewed the images of this examination and agree with the resident's findings and interpretation. Interpreted by: Frederic Barrera MD Preliminary Report By: Diomedes Parra Electronically signed By Frederic Barrera MD Dictated Date: 07/28/2023 4:53:05 PM Prelim Date: 07/28/2023 4:55:05 PM Sign Date: 07/28/2023 5:33:33 PM Ordering Provider: FANY SUERO [facility] 07-28-2023 Note Sinus rhythm Consider right atrial enlargement EKG interpretation is noted and agreed to in [employer]. The interpretation of this patient's EKG contributed directly to the care and management of this patient. Electronic Signature: FANY SUERO DO 07/28/2023 16:09:38 [facility] 07-28-2023 Evaluation + Plan note Diagnostic Tests PendingUrine Culture 07/28/23Blood Culture (bacterial) 07/28/23Blood Culture (bacterial) 07/28/23 [facility] 12-11-2022 Note HNO ID: [id number] Author: Harvey Coburn MD Service: ? Author Type: Physician Type: Progress Notes Filed: 12/12/2022 12:11 AM Note Text: This note was created using paymioriter. Subjective Anitra Le is a 77 year [...] 1 tablet by mouth daily before breakfast. ivvqendnfga-nrnpowxtf-hvladbbx (TRELEGY ELLIPTA) 100-62.5-25 mcg inhalation powder Trelegy [...] #1. - ECG COMPLETE Harvey Coburn MD [facility] 12-11-2022 Instructions Harvey Coburn MD - 12/11/2022 5:59 PM EDT START TONIGHT. SKIP LOSARTAN TONIGHT AND START TAKING EVERY MORNING TOMORROW. documented in this encounter [facility] 12-11-2022 History of Present illness Narrative This note was created using [employer]. Subjective Anitra Le is a 77 year [...] 1 tablet by mouth daily before breakfast. fasqfkntahu-kpcvvulvj-aoisfxpn (TRELEGY ELLIPTA) 100-62.5-25 mcg inhalation powder Trelegy [...] Harvey Coburn MD documented in this encounter [facility] 12-06-2022 Note HNO ID: [id number] Author: Debbie Urban RT(R) Service: Nuclear Medicine [...] PERIPHERAL IV DATA: Not applicable SIGNED BY: Debbie Urban, RT(R) December 06, 2022 10:08 AM [facility] 12-06-2022 Note HNO ID: [id number] Author: Fabio Hennessy APRN.SIGNING AGENT Service: ? Author Type: Nurse Practitioner Type: [...] 1 tablet by mouth daily before breakfast. imrwicwwxny-xzgyuuaop-ssldyebp (TRELEGY ELLIPTA) 100-62.5-25 mcg inhalation powder Trelegy [...] TABLET, EXTENDED RELEASE 12 HR Fabio Hennessy APRN.CNP [facility] 12-06-2022 Instructions Fabio Hennessy APRN.[place] - 12/06/2022 [...] or feel confused. documented in this encounter [facility] 12-06-2022 History of Present illness Narrative Subjective [...] 1 tablet by mouth daily before breakfast. lboflskfzht-qlyymojia-jpawsdci (TRELEGY ELLIPTA) 100-62.5-25 mcg inhalation powder Trelegy [...] TABLET, EXTENDED RELEASE 12 HR Fabio Hennessy APRN.SIGNING AGENT documented in this encounter [facility] 12-04-2022 Miscellaneous Notes Called and updated patient that medication was sent in to pharmacy. Gertrude Morrow LPN Anitra called back and checking on antibiotic and requesting a steroid also. Please review and advise. Thank you Pharmacy [facility] Gertrude oMrrow LPN Patient called in stating she is having congestion and clear phlegm. Patient is requesting Z-pac be sent to [facility] in [place]. Please notify patient at when sent in. Thank you Kizzy Mcknight LPN documented in this encounter [facility] 11-23-2022 Note HNO ID: [id number] Author: Melly Berman MD Service: ? Author Type: Physician Type: Progress Notes Filed: 11/23/2022 3:52 PM Note Text: Reviewed actual images of chest CT. Has diffuse emphysema but predominantly in upper lobes. Multiple pulmonary nodules that have been stable at least for one year. Will need follow-up chest CT. The distribution of emphysema does not appear amenable to a [place] valve to my view and she did not have hyperinflation on past PFTs. Images will be uploaded into our system. [facility] 11-15-2022 Miscellaneous Notes Patient notified, verbalized understanding. [...] morning was 132/74. Reports she went to [facility] this morning for pulmonary rehab and did [...] in BP reading? documented in this encounter [facility] 10-24-2022 Note HNO ID: [id number] Author: Melly Berman MD Service: ? Author [...] above information would not qualify her for [place] valve [facility] 10-24-2022 History of Present illness Narrative Received outside records. Will be scanned into the system. CT of the chest 2019 mentions upper lobe predominant emphysema with multiple pulmonary nodules. Will need actual images. 6-minute walk test 04/18/2022 no desaturation PFT 09/2021: FEV1 0.68 L 30 %, TLC 2.92 L 63%, RV/TLC 44%, DLCO/VA 2.11 50% The above information would not qualify her for [place] valve documented in this encounter [facility] 10-23-2022 Note HNO ID: [id number] Author: Adrianna Tabor APRN.SIGNING AGENT Service: ? Author Type: Nurse Practitioner Type: [...] 1 tablet by mouth daily before breakfast. akbfoyrzxjz-wtbggngbp-syrsjixl (TRELEGY ELLIPTA) 100-62.5-25 mcg inhalation powder Trelegy [...] agreeable to treatment plan Adrianna Tabor APRN.CNP [facility] 10-23-2022 History of Present illness Narrative CC [...] 1 tablet by mouth daily before breakfast. wedhgxvihyx-aumparmcj-smeempxq (TRELEGY ELLIPTA) 100-62.5-25 mcg inhalation powder Trelegy [...] agreeable to treatment plan Adrianna Tabor APRN.CNP documented in this encounter [facility] 10-03-2022 Note HNO ID: [id number] Author: Melly Berman MD Service: ? Author Type: Physician Type: Progress Notes Filed: 10/03/2022 12:24 PM Note Text: . Respiratory [place] Note Patient name: Anitra Le PCP: Harvey [...] evaluation of her COPD. Recently moved from [place] to [place]. COPD treated with Trelegy Ellipta and as [...] k/uL 1.45 Monocytes % % 14.5 Abs [place] <0.87 k/uL 0.56 Eosinophils % % 0.0 [...] 1 tablet by mouth daily before breakfast. 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 [facility] 10-03-2022 Note HNO ID: [id number] Author: JEAN Shirley Service: ? Author Type: Respiratory Therapist Type: Progress Notes Filed: 10/03/2022 10:47 AM Note Text: PULM FUNCTION SMARTBLOCK: Provider: Melly Berman MD Assisting Tech: JEAN Shirley Spirometry w/BD: 1 [facility] 09-18-2022 Note HNO ID: [id number] Author: Torsten Espitia MD Service: ? Author Type: Physician Type: Progress Notes Filed: 09/18/2022 4:08 PM Note Text: Telemedicine Evaluation for COVID-19 Infection Audio only was used for evaluation of this patient. I have communicated my name and active licensure. The patient's identity and physical location were verified at the time of this visit. Either the patient or their legal patient access representative has been informed of the risks [...] in detail. Molnupiravir Eligibility and Patient Discussion [facility] Formulary Restriction Criteria: Adult outpatients 18 years [...] duration of treatment (more content not included)... [facility] 09-18-2022 Instructions Torsten Espitia MD - 09/18/2022 [...] of LAGEVRIO during to this registry at [email or web address]://covid-pr.[employer].[email or web address] or . For individuals who are sexually [...] virus. COVID-19 illnesses have ranged from very gahr-bg-vrpdmo, including illness resulting in . While information [...] serious illnesses Take any medicines including prescription, rdcr-ilo-nhfneip medicines, vitamins, and herbal products. How do [...] NG or OG that is size 12 Frisian (FR) or larger. If you miss a [...] treat people with COVID-19. Go to https://www.fda.gov/emergency-pre eizlmwoal-bpe-nzxrngin/mcm-legalr aifzdrjbs-dqu-apklao-framework/em mabamua-poo-uphqjttoumnls for more information. It is your choice [...] to FDA MedWatch at www.fda.gov/medwatch or call 1-800-fda-1088 (1173.764.9950). How should I store LAGEVRIO? Store LAGEVRIO capsules at room temperature between 68 F to 77 F (20 C to 25 C). Keep LAGEVRIO and all medicines out of the reach of children. How can I learn more about COVID-19? Ask your healthcare provider. Visit www.cdc.gov/COVID19 Contact your local or state public health department. Call [employer] at (toll free in the [place] Visit www.[employer] What Is an Emergency Use Authorization (EUA)? The [place] FDA has made LAGEVRIO available under an emergency access mechanism called an Emergency Use Authorization (EUA) The EUA is supported by a Forms Builder of Health and Human Service (HHS) declaration that circumstances exist to justify emergency use of drugs and biological products during the COVID-19 pandemic. LAGEVRIO for the treatment of adults with a current diagnosis of pjet-jo-zlllzcga COVID-19 who are at high risk for [...] be used under the EUA). [place]. for: [employer] [address] For patent information: www.[employer]/research/patent Copyright [employer] [place], [place], [facility] and its affiliates. All rights reserved. [id number] Revised: July 2022 documented in this encounter [facility] 09-18-2022 History of Present illness Narrative Telemedicine Evaluation for COVID-19 Infection Audio only was used for evaluation of this patient. I have communicated my name and active licensure. The patient's identity and physical location were verified at the time of this visit. Either the patient or their legal patient access representative has been informed of the risks [...] in detail. Molnupiravir Eligibility and Patient Discussion [facility] Formulary Restriction Criteria: Adult outpatients 18 years [...] coronavirus infection (COVID-19). documented in this encounter [facility] 09-18-2022 Miscellaneous Notes TC to patient - phone visit scheduled for this afternoon with Dr. Espitia. She is unable to do a virtual visit. INTM full. Patient calling to ask about the medication that is to be prescribed for COVID. Pharmacy [facility] in [place]. Patient has COPD. Please return call to patient [phone] Anitra Le is calling Harvey Coburn MD today with concern regarding Covid Positive: Cough; has COPD; sore throat; requesting medication. Please call. Patient has been identified by name and birthdate. Duration of symptoms: N/A Person calling: self Call patient at: at home [phone] (home) [phone] (cell) Was an appointment scheduled: No Closing statement: Symptom Call: Thank you for calling [facility], your call is very important. A nurse will call in approximately 2-4 hours during business hours. If this is an emergency, please contact 911. Evelyn Carter documented in this encounter [facility] 08-28-2022 Note HNO ID: [id number] Author: Harvey Coburn MD Service: ? Author Type: Physician Type: Progress Notes Filed: 08/28/2022 12:50 PM Note Text: Anitra Le is a 76 year old female here for a Medicare Subsequent Annual Wellness Visit Health Risk Assessment In general, health is: Very good Concerns with balance:Not at all Concerns with teeth or dentures:Not at all Concerns with sexual function:Not at all [place] anxious, stressed, angry, irritable, lonely, isolated, or [...] exercise - Fall avoidance - Depression screening [facility] 08-28-2022 Note HNO ID: [id number] Author: Harvey Coburn MD Service: ? Author Type: Physician Type: Progress Notes Filed: 08/28/2022 12:50 PM Note Text: This note was created using paymioriter. Subjective Anitra Le is a 76 year old female was here for a medicare wellness and follow up after she established care here last month. She moved from [place]. Her blood pressure was not at goal, [...] TAKE 1 TABLET BY MOUTH EVERY DAY rrghxuayodi-nahftzctr-jyggnipg (TRELEGY ELLIPTA) 100-62.5-25 mcg inhalation powder Trelegy [...] Abs Lymph 1.00 - 4.00 k/uL 1.45 [place]% % 14.5 Abs [place] <0.87 k/uL 0.56 [place]% % 0.0 Abs [...] importance of t (more content not included)... [facility] 08-07-2022 Miscellaneous Notes Follow-up WITH DR COBURN in 3 months (October) Adrianna Tabor APRN.[place] Patient called stating that power had gone out at her first appt with Godwin Tabor. She states someone from the office was to contact her to schedule her next appt. Unable to find documentation of when that should be. Please call patient and advise. documented in this encounter [facility] 07-25-2022 Note HNO ID: [id number] Author: Adrianna Tabor APRN.CNP Service: ? Author Type: Nurse Practitioner Type: Progress Notes Filed: 07/25/2022 11:59 AM Note Text: CC: Patient presents with: Establish Care HPI Anitra Le is a 76 year old female who presents today for above. Previous PCP in [place], Dr. Nic Armstrong. They recently moved to [place]. Denies any concerns or issues today. White coat syndrome with hypertension Medication changes:No Taking all medications as prescribed: Yes Side effects: No Home BP's: No Denies: headache, chest pain, palpitations and peripheral edema. Last 3 Encounter BP Readings: Date: BP: 07/25/2022 132/80 Chronic obstructive pulmonary disease (HCC) Managed by pulmonology in [place]. She is scheduled to establish with [facility] [...] lbs due to stress with moving to [place]. Weight has stabilized and starting to gain [...] TAKE 1 TABLET BY MOUTH EVERY DAY wuznosaekhy-pfezokxec-qhgnttkl (TRELEGY ELLIPTA) 100-62.5-25 mcg inhalation powder Trelegy [...] ICD10: R63.4 Pat (more content not included)... [facility] 07-25-2022 Note HNO ID: [id number] Author: Rocio Kaufman Pss Service: ? Author Type: ? Type: Progress Notes Filed: 07/25/2022 10:51 AM Note Text: OPENED IN ERROR [facility] 07-25-2022 Instructions Adrianna Tabor APRN.[place] - 07/25/2022 10:57 AM EST Recombinant shingles vaccine (Shingrix) is recommended; 2 doses 2-6 months apart. Please read information, check with your insurance, and schedule vaccination at your local pharmacy. A prescription is not required. If you are certain you have coverage to receive this vaccine in the office, we can schedule this for you. documented in this encounter [facility] 07-25-2022 History of Present illness Narrative CC: Patient presents with: Establish Care HPI Anitra Le is a 76 year old female who presents today for above. Previous [place] in [place], Dr. Nic Armstrong. They recently moved to [place]. Denies any concerns or issues today. White coat syndrome with hypertension Medication changes:No Taking all medications as prescribed: Yes Side effects: No Home BP's: No Denies: headache, chest pain, palpitations and peripheral edema. Last 3 Encounter BP Readings: Date: BP: 07/25/2022 132/80 Chronic obstructive pulmonary disease (HCC) Managed by pulmonology in [place]. She [facility] with [facility] [...] lbs due to stress with moving to [place]. Weight has stabilized and starting to gain [...] TAKE 1 TABLET BY MOUTH EVERY DAY diqdtrbetui-fbixwxpsh-gbkttagj (TRELEGY ELLIPTA) 100-62.5-25 mcg inhalation powder Trelegy [...] Adrianna Tabor APRN.CNP documented in this encounter [facility] 07-25-2022 History of Present illness Narrative OPENED IN ERROR documented in this encounter [facility] Diagnosis Chronic obstructive pulmonary disease, unspecified COPD type (HCC)- Primary Hypothyroidism, unspecified type Primary hypertension Unspecified essential hypertension Weight loss Loss of weight documented in this encounter [facility] note* Diagnosis COVID-19 virus infection- Primary [facility] Diagnosis White coat syndrome with hypertension- Primary Hypothyroidism, unspecified type documented in this encounter [facility] note* Diagnosis Lower resp. tract infection- Primary Other diseases of respiratory system, not elsewhere classified Acute cough documented in this encounter [facility] note* Diagnosis White coat syndrome with hypertension- Primary Chronic obstructive pulmonary disease, unspecified COPD type (HCC) Tachycardia Tachycardia, unspecified documented in this encounter [facility] course Narrative No data available for this section [facility] Discharge instructions No data available for this section [facility] Progress note No data available for this section [facility] Reason for referral (narrative)* Outpatient Procedure (Routine) - Pending Review Specialty Diagnoses / Procedures Referred By Contac t Referred To [facility] Diagnoses Obstructive chronic bronchitis without exacerbation (HCC) Procedures SPIROMETRY WITH DILATOR IF OBSTRUCTED BRNCDILAT RSPSE SPMTRY PRE&POST-BRNCDILAT ADMMelly Hernadez MD [address] [facility] [place] [address] [address] Referral ID Status Reason Start Date Expiration Date Visits Requested Visits Authorized [id number] Pending Review Auto-Generat ed Referral 10/22/2022 08/24/2023 1 1 * Outpatient Procedure (Routine) - Authorized Specialty Diagnoses / Procedures Referred By Contac t Referred To [facility] Diagnoses Obstructive chronic bronchitis without exacerbation (HCC) Procedures SPIROMETRY - BASELINE AND POST DILATOR BRNCDILAT RSPSE SPMTRY PRE&POST-BRNCDILAT Melly Moran MD [address] [facility] [address] [address] Referral ID Status Reason Start Date Expiration Date Visits Requested Visits Authorized [id number] Authorized Auto-Generat ed Referral 07/25/2022 08/24/2023 1 1 [facility] for referral (narrative)* Outpatient Procedure (Routine) - Closed Specialty Diagnoses / Procedures Referred By Contac t Referred To [facility] Diagnoses Tachycardia Procedures ECG COMPLETE ECG ROUTINE ECG W/LEAST 12 LDS W/I&R Harvey Coburn MD [address] [place] [address] [facility] [place] [address] [place] [address] Referral ID Status Reason Start Date Expiration Date V isits Requested Visits Authorized [id number] Closed Auto-Generate d Referral 12/11/2022 12/11/2023 1 1 [facility] Summary Purpose Family History No Family History Records Found No data available for this section No Family History Records Found Advance Directives No Advanced Directives Records FoundNo Advanced Directives Records Found Additional Source Comments Source Comments (unrecognize d section and content) In the event this informatio n is protected by the Federal Confidentiality of Alcohol and Drug Abuse Patient Records regulations: The Federal rules restrict any use of the information to criminally investigate or prosecute any alcohol or drug abuse patient.[facility] the event this information is protected by the Federal Confidentiality of Alcohol and Drug Abuse Patient Records regulations: The Federal rules restrict any use of the information to criminally investigate or prosecute any alcohol or drug abuse patient.[facility] the event this information is protected by the Federal Confidentiality of Alcohol and Drug Abuse Patient Records regulations: The Federal rules restrict any use of the information to criminally investigate or prosecute any alcohol or drug abuse patient.[facility] the event this information is protected by the Federal Confidentiality of Alcohol and Drug Abuse Patient Records regulations: The Federal rules restrict any use of the information to criminally investigate or prosecute any alcohol or drug abuse patient.[facility] the event this information is protected by the Federal Confidentiality of Alcohol and Drug Abuse Patient Records regulations: The Federal rules restrict any use of the information to criminally investigate or prosecute any alcohol or drug abuse patient.[facility] the event this information is protected by the Federal Confidentiality of Alcohol and Drug Abuse Patient Records regulations: The Federal rules restrict any use of the information to criminally investigate or prosecute any alcohol or drug abuse patient.[facility] the event this information is protected by the Federal Confidentiality of Alcohol and Drug Abuse Patient Records regulations: The Federal rules restrict any use of the information to criminally investigate or prosecute any alcohol or drug abuse patient.[facility] the event this information is protected by the Federal Confidentiality of Alcohol and Drug Abuse Patient Records regulations: The Federal rules restrict any use of the information to criminally investigate or prosecute any alcohol or drug abuse patient.[facility] the event this information is protected by the Federal Confidentiality of Alcohol and Drug Abuse Patient Records regulations: The Federal rules restrict any use of the information to criminally investigate or prosecute any alcohol or drug abuse patient.[facility] the event this information is protected by the Federal Confidentiality of Alcohol and Drug Abuse Patient Records regulations: The Federal rules restrict any use of the information to criminally investigate or prosecute any alcohol or drug abuse patient.[facility] the event this information is protected by the Federal Confidentiality of Alcohol and Drug Abuse Patient Records regulations: The Federal rules restrict any use of the information to criminally investigate or prosecute any alcohol or drug abuse patient.[facility] Campus[facility] the event this information is protected by the Federal Confidentiality of Alcohol and Drug Abuse Patient Records regulations: The Federal rules restrict any use of the information to criminally investigate or prosecute any alcohol or drug abuse patient.[facility] Care Teams (unrecognized sec tion and content) Child Protection Specialist Relationship Specialty Start Date End Date Harvey Coburn MD [address] [place] [address] PCP - General Internal Medicine 07/25/22 Child Protection Specialist Relationship Specialty Start Date End Date Harvey Coburn MD [address] [place] [address] PCP - General Internal Medicine 07/25/22 Child Protection Specialist Relationship Specialty Start Date End Date Harvey Coburn MD [address] [place] [address] PCP - General Internal Medicine 07/25/22 Child Protection Specialist Relationship Specialty Start Date End Date Harvey Coburn MD [address] [place] [address] PCP - General Internal Medicine 07/25/22 Child Protection Specialist Relationship Specialty Start Date End Date Harvey Coburn MD [address] [place] [address] PCP - General Internal Medicine 07/25/22 Child Protection Specialist Relationship Specialty Start Date End Date Harvey Coburn MD [address] [facility], [place] [address] PCP - General Internal Medicine 07/25/22 Child Protection Specialist Relationship Specialty Start Date End Date Harvey Coburn MD [address] [facility], [place] [id number] PCP - General Internal Medicine 07/25/22 Child Protection Specialist Relationship Specialty Start Date End Date Harvey Coburn MD [address] [facility], [place] [address] PCP - General Internal Medicine 07/25/22 Child Protection Specialist Relationship Specialty Start Date End Date Harvey Coburn MD [address] [facility], [place] [id number] PCP - General Internal Medicine 07/25/22 Reason [...] INFORMATION SOURCE (unrecogn ized section and content) DATE CREATED AUTHOR AUTHOR'S ORGANIZ ATION 07/31/2023 [facility] FOR RECORDS PERTAINING TO PATIENTS WHO ARE [...] BE BASED ON THE PRIMARY CLINICAL RECORDS. [facility] [employer] [facility]. provides no warranty or guarantee of the accuracy or completeness of information in this document.
== END | disposition home or self-care (01) ==
LOC: LAB 11:21
PROVIDERS: PCP Family Medicine; Referring Provider Internal Medicine Cardiovascular Disease; Visit Provider Internal Medicine Cardiovascular Disease
DX: E87.1 Hypo-osmolality and hyponatremia (principal); J44.9 Chronic obstructive pulmonary disease, unspecified; I10 Essential (primary) hypertension; R60.0 Localized edema
CPT/HCPCS: 36415; 80048

== ENCOUNTER → 2023-08-09 | Outpatient (CLI) | payer MEDICARE, SELFPAY ==
[2022-12-08 08:40] VITALS: BMI 19.7
[2023-08-09 13:42] LABS: Anion Gap 3 (5-15); BUN 22 mg/dL (7-18); BUN/Creat Ratio 28.5 RATIO (10-20); Calcium,Total 9.6 mg/dL (8.5-10.1); Chloride 102 mmol/L (98-107); Creatinine, Serum 0.77 mg/dL (0.55-1.02); EST Glomerular Filtration Rate 77 mL/min (>60); Est Glom Filt Rate - Afr Amer 93 mL/min (>60); Glucose 95 mg/dL (74-106); Sodium Level 138 mmol/L (136-145)
== END | disposition home or self-care (01) ==
LOC: LAB 12:51
PROVIDERS: PCP Family Medicine; Referring Provider Internal Medicine Cardiovascular Disease; Visit Provider Internal Medicine Cardiovascular Disease
DX: I10 Essential (primary) hypertension (principal); J44.9 Chronic obstructive pulmonary disease, unspecified; E87.1 Hypo-osmolality and hyponatremia; R60.0 Localized edema; F17.211 Nicotine dependence, cigarettes, in remission
CPT/HCPCS: 36415; 80048

== ENCOUNTER 2023-09-26 19:10 | Inpatient (IN) | payer MEDICARE, SELFPAY ==
[2022-12-08 08:40] VITALS: BMI 19.7
[2023-09-26 18:04] VITALS: BMI 19.2
[2023-09-26 18:33] VITALS: BP 142/71; PULSE 99; RESP 19; TEMP 36.5; O2SAT 99
--- NOTE | 2023-09-26 18:53 | HP.PCM.HOS_ITS ---
[facility] - General General Date of Admission: 09/26/23 Date of Service: 09/26/23 Chief Complaint: SOB and Wheezing. [facility] Narrative JAVIER LE, is a 77 F with a past medical history of essential hypertension, hypothyroidism, age-related macular degeneration, history of hyponatremia, history of uterine prolapse, osteoporosis, OA and history of tobacco abuse; with subsequent COPD who presents to [facility] ER complaining of SOB and wheezing. Ms. Le reports her symptoms began approximately three days prior to admission with the gradual-onset of LUQUE that progressed to SOB at rest with wheezing. She was then seen by Torri Burnette NP on September 24, 2023 and was started on prednisone in addition to scheduled and prn nebulizers. Unfortunately, her condition worsened in spite of this treatment so she went to [facility] and had to be started on 3L NC and was then transferred here for further evaluation and treatment. She was then diagnosed with AE COPD complicated by clinical evidence of respiratory insufficiency and she was then admitted to the general medical floor for ongoing care for a stay that is expected to be greater than 48 hours. [facility] Medical History Abducens nerve palsy Age-related macular degeneration Alcohol use COPD (chronic obstructive pulmonary disease) COPD (chronic obstructive pulmonary disease) Former light cigarette smoker (1-9 per day) Former smoker Hypertension Hypertension Hyponatremia Hypothyroidism Hypothyroidism Leukopenia Mixed hyperlipidemia Osteoarthritis Osteopenia Osteoporosis Peripheral edema Pulmonary nodule Uterine prolapse Vitamin D deficiency Home Medications calcium carbonate 500 mg PO DAILY 07/25/23 [History Last Taken 09/26/23] multivitamin 1 tab PO DAILY 07/25/23 [History Last Taken Unknown] fluticasone fur. 200 mcg-umeclid 62.5 mcg-vilant 25 mcg inhalat.powder (Trelegy Ellipta) See Rx Instructions inhalation Q24H breathing 07/28/23 [History Last Taken 09/26/23] levothyroxine 100 mcg tablet 100 mcg PO DAILY thyroid 07/28/23 [History Last Taken 09/26/23] losartan 100 mg tablet 100 mg PO DAILY blood pressure 07/28/23 [History Last Taken 09/26/23] albuterol sulfate 90 mcg/actuation aerosol inhaler (Ventolin HFA) 2 puff inhalation Q6H PRN shortness of breath or wheezing 08/02/23 [History Last Taken 09/26/23] cholecalciferol (vitamin D3) 25 mcg (1,000 unit) tablet 25 mcg PO DAILY 08/02/23 [History Last Taken Unknown] furosemide 20 mg tablet 20 mg PO DAILY #90 tabs 08/02/23 [Rx Last Taken 09/26/23] potassium chloride 20 mEq tablet,extended release 20 meq PO DAILY #90 tabs 08/02/23 [Rx Last Taken 09/25/23] thiamine HCl (vitamin B1) 100 mg tablet 200 mg PO DAILY 08/02/23 [History Last Taken 09/25/23] hydralazine 25 mg tablet 25 mg PO TID #270 tabs 09/10/23 [Rx Last Taken 09/26/23] albuterol sulfate 2.5 mg/3 mL (0.083 %) solution for nebulization 2.5 mg inhalation Q4H PRN shortness of breath or wheezing 09/24/23 [History Last Taken Unknown] prednisone 10 mg tablet 10 mg PO QDAY #30 tabs 09/24/23 [Rx Last Taken 09/26/23] Allergy/AdvReac Type Severity Reaction Status Date / Time No Known Allergies Allergy Verified 09/26/23 18:18 Family History Father COPD (chronic obstructive pulmonary disease) Sister COPD (chronic obstructive pulmonary disease) Mother Lung cancer Hypertension Other Thyroid disorder Surgical History H/O adenoidectomy H/O colonoscopy History of bilateral ligation of fallopian tubes Hx of tonsillectomy Social History Smoking Status: Former smoker how long ago did patient quit smokin years ago alcohol intake: current alcohol intake frequency: a few times a week substance use type: does not use caffeine: Yes Type: coffee Number of servings: 3 ROS ROS Narrative Review of systems: General: Patient denies fevers or chills. HENT: Denies headache, denies stuffy nose, denies sore throat EYES: Denies changes in vision or discharge from eyes. Resp: Patient admits to dyspnea on exertion that progressed to shortness of breath at rest along with chronic nonproductive cough. Cardiac: Denies chest pain, heart racing or palpitations. GI: Denies abdominal pain, denies changes in bowel, patient denies nausea or vomiting. : Denies changes in urination Extremity: Denies swelling Musculoskeletal: Patient denies arthralgias or myalgias. Neuro: Patient denies headache, paresthesias or focal neurologic deficits. Heme: Denies any bleeding or bruising Skin: Denies rashes Psychiatric: No complaints voiced related to uncontrolled depression or anxiety. Endocrine: No polyuria, polydipsia or polyphagia. The rest of the 14 point ROS was negative except for positives in HPI. Vital Signs Vital Signs Vital Signs: 09/26/23 18:33 Temperature 97.7 F L Temperature Source Oral Pulse Rate 99 Respiratory Rate 19 H Blood Pressure 142/71 H Blood Pressure Mean 94 Blood Pressure Source Monitor Blood Pressure Position Semi-Fowlers Blood Pressure Location Left Arm Pulse Ox 99 Oxygen Delivery Method Nasal Cannula Oxygen Flow Rate (L/min) 2 Weight Weight: 105 lb Body Mass Index (BMI) 19.2 Physical Exam Const alert, oriented x3, no apparent distress and average body habitus General Appearance: cooperative HEENT normocephalic, head/scalp atraumatic, hearing grossly normal bilaterally and moist oral mucous membranes Eyes PERRL and EOMs intact bilaterally Neck no lymphadenopathy and supple Resp Resp Narrative: Diminished breath sounds throughout with scattered rhonci and wheezes. Auscultation: rhonchi and wheezes Cardio regular rate and regular rhythm GI normal to inspection, nondistended, normoactive bowel sounds, soft to palpation, non-tender and non-distended Extremity normal to inspection and full ROM Skin Skin Narrative: Patient has no evidence of abscess or rash. Neuro oriented x3, CN's II-XII intact bilaterally, moves all extremities and no focal motor deficits Sensorium / Orientation: awake, alert, oriented to person, oriented to place and oriented to time Speech: speech normal Psych affect normal Results Medical Records Data Attestation: I reviewed the patient's medical records Lab / Micro Data Attestation: I reviewed the patient's lab results. 09/26/23 19:45 09/26/23 19:45 Assessment & Plan Assessment/Plan (1) COPD exacerbation: (2) Respiratory insufficiency: PLAN: Plan 1. Acute exacerbation of COPD failed outpatient treatment - Admit to general medical floor. Give IV Solu-Medrol, IV doxycycline plus scheduled and as needed nebulizers. Give Tylenol as needed pain or fever. 2. Respiratory insufficiency attributable to #1 - Wean supplemental oxygen as tolerated. 3. Essential hypertension - Continue home medications as previous plus give as needed IV hydralazine for systolic blood pressure greater than 160 mmHg. 4. Hypothyroidism - Resume Synthroid and check TSH. 5. Age-related macular degeneration - Noted. 6. History of hyponatremia - Noted. 7. History of uterine prolapse - Stable. 8. Osteoporosis - Noted. 9. OA - Give Tylenol as needed. 10. DVT prophylaxis - Lovenox 40 mg sq daily. Total time: Approximately 55 minutes. Charges/Coding Visit Charges Inpatient E&M: 49149 Init Hosp L2
[2023-09-26 19:54] LABS: Absolute Lymphocyte Count 0.36 X10^3/uL (0.83-4.51); Absolute Neutrophil Count 6.1 X10^3/uL (2.0-7.7); Basophil# 0.01 X10^3/uL; Basophil% 0.1 % (0-1); Hematocrit 34.7 % (37-47); Hemoglobin 11.6 g/dL (12.0-15.0); Lymphocyte # 0.36 X10^3/ul (0.83-4.51); Lymphocyte % 5.3 % (19-41); Mean Corp Hgb Conc 33.4 g/dL (32-36); Mean Corpuscular Hgb 30.3 pg (27.0-32.0); Mean Corpuscular Volume 90.6 fL (81-99); Mean Platelet Vol. 9.3 fl (6.2-12.0); NRBC Flagged by Analyzer 0 % (0-5); Neutrophil # 6.14 X10^3/uL (2.7-7.7); Neutrophil % 91.2 % (47-70); POSITIVE DIFFERENTIAL YES; Platelet Count 338 K/mm3 (150-450); RBC Distribution Width CV 14.9 % (11.6-14.6); RBC Distribution Width SD 49.3 fl (35.1-43.9); Red Blood Count 3.83 M/mm3 (4.2-5.4); White Blood Count 6.7 K/mm3 (4.4-11.0)
[2023-09-26 20:07] LABS: Anion Gap 5 (5-15); BUN 15 mg/dL (7-18); Calcium,Total 8.5 mg/dL (8.5-10.1); Chloride 106 mmol/L (98-107); Creatinine, Serum 0.75 mg/dL (0.55-1.02); EST Glomerular Filtration Rate 79 mL/min (>60); Est Glom Filt Rate - Afr Amer 96 mL/min (>60); Estimated Creatinine Clearance 44.28 ml/min; Glucose 153 mg/dL (74-106); Potassium 3.5 mmol/L (3.5-5.1); Sodium Level 139 mmol/L (136-145)
[2023-09-26] MEDS: 0.9% Normal Saline (1000mL) 1,000 ML 70 ML IV (20:15)
[2023-09-26 20:33] VITALS: BP 121/73; PULSE 96; RESP 20; TEMP 37.1; O2SAT 97
[2023-09-26 20:50] VITALS: BP 121/73; PULSE 96
[2023-09-26] MEDS: Lactobacillis Acidophilus 2 CAP PO (20:50)
[2023-09-26] MEDS: hydrALAZINE 25 MG Tablet PO (20:50)
[2023-09-26] MEDS: Doxycycline 100 MG in Dextrose 5%-Water (250mL Bag) 250 ML 250 MG IV (20:51)
[2023-09-26] MEDS: Famotidine 20 MG Tablet PO (20:51)
[2023-09-26] MEDS: MethylPREDNISolone 125 MG/2 ML Vial 60 MG IV (20:51)
[2023-09-26 22:55] VITALS: RESP 18; O2SAT 98
[2023-09-27] VITALS (12 sets, daily range): BP systolic 144–152; BP diastolic 68–89; PULSE 81–94; RESP 18–24; TEMP 36.8; O2SAT 86–100; BMI 19.3
[2023-09-27] MEDS: hydrALAZINE 25 MG Tablet PO ×3 (04:26→21:11)
[2023-09-27] MEDS: Levothyroxine 100 MCG Tablet PO (04:26)
[2023-09-27 08:22] LABS: Absolute Lymphocyte Count 0.77 X10^3/uL (0.83-4.51); Absolute Neutrophil Count 4.9 X10^3/uL (2.0-7.7); Basophil# 0.01 X10^3/uL; Basophil% 0.2 % (0-1); Hematocrit 35.7 % (37-47); Hemoglobin 11.9 g/dL (12.0-15.0); Lymphocyte # 0.77 X10^3/ul (0.83-4.51); Lymphocyte % 12.4 % (19-41); Mean Corp Hgb Conc 33.3 g/dL (32-36); Mean Corpuscular Hgb 30.7 pg (27.0-32.0); Mean Corpuscular Volume 92.2 fL (81-99); Mean Platelet Vol. 9.5 fl (6.2-12.0); Monocyte# 0.47 X10^3/uL; Monocyte% 7.6 % (0-10); NRBC Flagged by Analyzer 0 % (0-5); Neutrophil # 4.93 X10^3/uL (2.7-7.7); Neutrophil % 79.5 % (47-70); Platelet Count 322 K/mm3 (150-450); RBC Distribution Width CV 15.1 % (11.6-14.6); RBC Distribution Width SD 51.3 fl (35.1-43.9); Red Blood Count 3.87 M/mm3 (4.2-5.4); White Blood Count 6.2 K/mm3 (4.4-11.0)
--- NOTE | 2023-09-27 08:29 | PCM.PN.HOSP ---
Reason for Visit Reason for Visit: Shortness of breath/wheezing Subjective Subjective Mrs. Le is a 77-year-old white female who presented to outside hospital on 09/26/2023 due to shortness of breath and wheezing. She reported her symptoms started about 3 or 4 days prior to admission and she had gradually worsening dyspnea on exertion that progressed to shortness of breath at rest and wheezing. She has a history of COPD with an FEV1 of 31% predicted on her last PFTs and follows as an outpatient with [facility]. She did see the nurse practitioner at the pulmonary office on the and she was started on a prednisone taper at that time. She taken to 40 mg doses but stated her symptoms were still worsening so she decided to go to the emergency department at [facility]. She was placed on 3 L nasal cannula and then was transferred here for further evaluation and treatment. She also complained of dysuria and her UA which was done at [facility] was consistent with UTI. This morning she does states she feels a little bit better. She is on room air at rest. We did try to do an ambulatory pulse ox on her to see if she could tolerate being on room air with exertion and her oxygen saturations dropped into the 80s with exertion so she was placed back on nasal cannula anytime she exerts herself. With her complaints of dysuria and her UA at [facility] appearing to be infected I did check a urinary culture and started her on Keflex. The patient states that her wheezing does appear to be improved. She did indicate that she seemed to get fairly winded while still going to the bathroom. Objective Data Objective Data Vital Signs: Vital Signs Temp Pulse Resp BP Pulse Ox O2 Del Method O2 Flow Rate 98.3 F 89 20 H 152/89 H 99 Nasal Cannula 2 09/27/23 04:22 09/27/23 04:26 09/27/23 04:22 09/27/23 04:26 09/27/23 08:11 09/27/23 08:11 09/27/23 08:11 Oxygen Flow Rate (L/min) 2 Oxygen Delivery Method Nasal Cannula Weight: 47.627 kg Body Mass Index (BMI) 19.3 Intake & Output: Intake and Output for Last 24 Hours 09/25/23 09/26/23 09/27/23 23:59 23:59 23:59 Intake Total 1060 / 1060 Balance 1060 / 1060 Lab / Micro Data 09/27/23 08:00 09/27/23 08:00 Labs: Laboratory Results - last 24 hr 09/26/23 19:45: WBC 6.7, RBC 3.83 L, Hgb 11.6 L, Hct 34.7 L, MCV 90.6, MCH 30.3, MCHC 33.4, RDW Std Deviation 49.3 H, RDW Coeff of Sherita 14.9 H, Plt Count 338, MPV 9.3, Immature Gran % (Auto) 0.400, Neut % (Auto) 91.2 H, Lymph % (Auto) 5.3 L, Gallia % (Auto) 3.0, Eos % (Auto) 0.0, Baso % (Auto) 0.1, Absolute Neuts (auto) 6.1, Absolute Lymphs (auto) 0.36 L, Nucleated RBC % 0, Sodium 139, Potassium 3.5, Chloride 106, Carbon Dioxide 28.0, Anion Gap 5, BUN 15, Creatinine 0.75, Estim Creat Clear Calc 44.28, Est GFR (MDRD) Af Amer 96, Est GFR (MDRD) Non-Af 79, BUN/Creatinine Ratio 20.0, Glucose 153 H, Calcium 8.5 09/27/23 08:00: WBC 6.2, RBC 3.87 L, Hgb 11.9 L, Hct 35.7 L, MCV 92.2, MCH 30.7, MCHC 33.3, RDW Std Deviation 51.3 H, RDW Coeff of Sherita 15.1 H, Plt Count 322, MPV 9.5, Immature Gran % (Auto) 0.300, Neut % (Auto) 79.5 H, Lymph % (Auto) 12.4 L, Gallia % (Auto) 7.6, Eos % (Auto) 0.0, Baso % (Auto) 0.2, Absolute Neuts (auto) 4.9, Absolute Lymphs (auto) 0.77 L, Nucleated RBC % 0 Physical Exam Const alert, oriented x3 and no apparent distress; Negative for average body habitus, healthy appearing or well nourished Constitutional Narrative: Very pleasant, older, white female, sitting up in bed, thin, watching television, nontoxic and appears well HEENT head/scalp atraumatic and moist oral mucous membranes HEENT Narrative: Mallampati is 1, no thrush Head and Scalp: normocephalic Eyes PERRL, EOMs intact bilaterally and conjunctivae normal Eyes Narrative: No scleral icterus Neck no lymphadenopathy and supple Neck Narrative: Trachea midline, no thyroid enlargement Resp normal respiratory effort, no retractions, no use of accessory muscles and clear to auscultation bilaterally Resp Narrative: Severely diminished diffusely but no adventitious sounds Auscultation: Negative for rales, rhonchi or wheezes Cardio regular rate, regular rhythm, S1 normal heart sound, S2 normal heart sound, no murmurs, no rub, no gallops and no clicks GI normal to inspection, nondistended, normoactive bowel sounds, soft to palpation and non-tender GI Narrative: Abdomen Extremity no clubbing, cyanosis or edema Extremity Narrative: Pedal pulses are 2+, radial pulses are 2+, significantly decreased lean muscle mass Neuro oriented x3, moves all extremities and no focal motor deficits Speech: speech normal Psych affect normal Psych Narrative: Very pleasant, interacts appropriately Assessment & Plan Assessment/Plan (1) Hypoxia: (2) COPD exacerbation: (3) Dysuria: PLAN: Plan Acute hypoxia secondary to acute exacerbation of COPD -Baseline FEV1 is 31% -Patient is not oxygen dependent at baseline -Currently on room air at rest however desats in the 80s and requires 4 L with exertion -Will give her another 24 hours with treatment and then reevaluate to see if she will need home oxygen -No evidence of pneumonia -No change in sputum volume, color, or frequency -Discontinue doxycycline -COVID/flu/RSV was negative at outside facility -Check respiratory viral panel -Continue steroids but transition from 60 twice daily to 40 daily 8 -Will use extended prednisone taper at discharge -Patient has some prednisone at home with 22 tablets left -Add scheduled DuoNebs -Continue as needed albuterol -Increase Lasix from 20 to 40 mg daily at the patient's request -Continue I-S -Add Acapella -Discontinue IV fluids Dysuria -UA appears to be consistent with infection -Check urine culture -Will start Keflex 500 p.o. twice daily and treat for 5 days Anemia -This is very mild and stable but appears to be new when compared to July -Will monitor Hypertension -Continue Lasix but increase to 40 p.o. daily -Continue home hydralazine 25 mg 3 times daily -Continue home losartan 100 mg daily Chronic lower extremity edema -Likely related to her COPD -Patient request that we increase her Lasix from 20-40 daily and keep an eye on her sodium as she has had issues with hyponatremia previously -Dose was increased History of hyponatremia -Appears to be of related to hydrochlorothiazide -Has been stable on Lasix next-continue to monitor with increased dose of Lasix COPD -Follows with pulmonary medicine -Hold inhalers until discharge and restart at that time -Recommend close outpatient follow-up with pulmonary medicine after discharge Osteoporosis -Continue vitamin D supplementation -Continue calcium carbonate History of tobacco abuse -Remote -Encourage ongoing cessation DVT prophylaxis -Continue Lovenox subcu 40 daily CODE STATUS -Full code Charges/Coding Visit Charges Inpatient E&M: 64933 Subs Hosp L3
[2023-09-27 09:04] LABS: ALB/GLOB Ratio 1.1 RATIO (0.9-2.4); AST(SGOT) 31 U/L (15-37); Alanine Aminotransfer ALT/SGPT 23 U/L (13-56); Alkaline Phosphatase 71 U/L (45-117); Anion Gap 3 (5-15); BUN 12 mg/dL (7-18); BUN/Creat Ratio 18.9 RATIO (10-20); Calcium,Total 8.6 mg/dL (8.5-10.1); Chloride 107 mmol/L (98-107); Creatinine, Serum 0.64 mg/dL (0.55-1.02); EST Glomerular Filtration Rate 96 mL/min (>60); Est Glom Filt Rate - Afr Amer 117 mL/min (>60); Estimated Creatinine Clearance 44.28 ml/min; Globulin 2.8 g/dL (2.2-4.2); Glucose 84 mg/dL (74-106); Magnesium 1.9 mg/dL (1.6-2.6); Phosphorus 2.8 mg/dL (2.5-4.9); Potassium 3.8 mmol/L (3.5-5.1); Protein, Total 5.8 g/dL (6.4-8.2); Sodium Level 140 mmol/L (136-145)
[2023-09-27] MEDS: Cephalexin 500 MG Capsule PO ×2 (10:40→21:11)
[2023-09-27] MEDS: Furosemide 40 MG Tablet PO (10:40)
[2023-09-27] MEDS: Cholecalciferol (VIT D3) 25 MCG TABLET (1,000 UNITS) PO (10:41)
[2023-09-27] MEDS: Famotidine 20 MG Tablet PO ×2 (10:41→21:11)
[2023-09-27] MEDS: Calcium (Elemental) 500 MG Tablet PO (10:41)
[2023-09-27] MEDS: Thiamine Hydrochloride 100 MG Tablet 200 MG PO (10:41)
[2023-09-27] MEDS: Losartan Potassium 100 MG Tablet PO (10:42)
[2023-09-27] MEDS: Potassium Chloride Oral Tablet 20 MEQ PO (10:42)
[2023-09-27] MEDS: Multivitamins,Therapeutic Tablet 1 TABLET PO (10:42)
[2023-09-27] MEDS: Enoxaparin 40 MG/0.4 ML Syringe SC (10:42)
--- NOTE | 2023-09-27 11:30 | CASEMGMT ---
RN?CM?COMMUNICATIONS PROGRAM MANAGER?CM?to room to meet with patient for initial transition planning/care coordination?assessment.?RN?CM?introduced self and role at [facility].? Pt voices understanding and consents to?assessment?at this time.? Pt resting in bed in no distress at this time.? Pt is A/O at this time and answers all questions appropriately.?? Care providers, pharmacy, and demographics verified/updated at this time. PCP: Dr Bautista Specialists: Dr Berman/Torri Burnette, SAMPLE HAND- lead solutions architect; SHALONDA, senior clinical data coordinator Preferred Pharmacy: [facility] Insurance: [employer] Prescription Benefit: yes LNOK: Significant other, Crow. Daughter, Sheila. 2 other adult children. Living Arrangements: Patient lives with significant other in a 2 story home with 3 steps to enter. FFSU. Patient states she is independent at home w/ADL's and IADL's, except for the laundry d/t it is in the basement and sig other does it. Transportation: self, significant other DME: Patient has nebulizer and pulse ox at home. Will monitor for home oxygen, prefers [facility]. HHC/SNF: No previous HHC or SNF. Pt wishes to return home and states has no concerns with going home at time of discharge.?CM?to follow for home oxygen needs and any further discharge planning/needs.? Pt voices no further concerns/needs at this time.? Advised pt to ask for?CM?if any further questions/concerns/needs arise.? Voices understanding. PLAN:??Home. CM to follow for possible home O2. Jacinta GOLDSTEINN?RN?CM
[2023-09-27] MEDS: Ipratropium/Albuterol Sulfate 3 ML AMPUL.NEB INHALATION ×2 (14:48→19:39)
[2023-09-27] MEDS: 0.9% Saline Lock 10 ML Syringe IV (21:11)
[2023-09-28] VITALS (18 sets, daily range): BP systolic 116–170; BP diastolic 64–128; PULSE 81–138; RESP 18–22; TEMP 36.3–36.8; O2SAT 91–98; BMI 19.3
[2023-09-28] MEDS: 0.9% Saline Lock 10 ML Syringe IV ×2 (04:45→23:01)
[2023-09-28] MEDS: Levothyroxine 100 MCG Tablet PO (04:45)
[2023-09-28] MEDS: hydrALAZINE 25 MG Tablet PO ×2 (04:45→13:36)
[2023-09-28] MEDS: Ipratropium/Albuterol Sulfate 3 ML AMPUL.NEB INHALATION ×4 (06:48→19:53)
[2023-09-28 07:52] LABS: Hematocrit 40.8 % (37-47); Hemoglobin 13.3 g/dL (12.0-15.0); Mean Corp Hgb Conc 32.6 g/dL (32-36); Mean Corpuscular Volume 92.1 fL (81-99); Mean Platelet Vol. 9.5 fl (6.2-12.0); Platelet Count 376 K/mm3 (150-450); RBC Distribution Width CV 14.9 % (11.6-14.6); RBC Distribution Width SD 50.6 fl (35.1-43.9); Red Blood Count 4.43 M/mm3 (4.2-5.4)
[2023-09-28] MEDS: Potassium Chloride Oral Tablet 20 MEQ PO (08:41)
[2023-09-28] MEDS: Multivitamins,Therapeutic Tablet 1 TABLET PO (08:43)
[2023-09-28] MEDS: Calcium (Elemental) 500 MG Tablet PO (08:43)
[2023-09-28] MEDS: Thiamine Hydrochloride 100 MG Tablet 200 MG PO (08:44)
[2023-09-28 08:46] LABS: Anion Gap 4 (5-15); BUN 18 mg/dL (7-18); BUN/Creat Ratio 28.2 RATIO (10-20); Calcium,Total 9.4 mg/dL (8.5-10.1); Chloride 102 mmol/L (98-107); Creatinine, Serum 0.64 mg/dL (0.55-1.02); EST Glomerular Filtration Rate 96 mL/min (>60); Est Glom Filt Rate - Afr Amer 116 mL/min (>60); Estimated Creatinine Clearance 44.28 ml/min; Glucose 113 mg/dL (74-106); Sodium Level 138 mmol/L (136-145)
[2023-09-28] MEDS: Cephalexin 500 MG Capsule PO (11:51)
[2023-09-28] MEDS: Enoxaparin 40 MG/0.4 ML Syringe SC (11:52)
[2023-09-28] MEDS: Famotidine 20 MG Tablet PO ×2 (11:52→22:37)
[2023-09-28] MEDS: Cholecalciferol (VIT D3) 25 MCG TABLET (1,000 UNITS) PO (11:52)
[2023-09-28] MEDS: Furosemide 40 MG Tablet PO (11:54)
[2023-09-28] MEDS: Losartan Potassium 100 MG Tablet PO (12:21)
--- NOTE | 2023-09-28 12:33 | NURSING ---
pt states she feels she can't to do the walking pulse ox right now. pox on ra is 95%. Appears to be anxious. Informed her we'll wait for 30 to 45 minutes.
[2023-09-28] MEDS: Albuterol 2.5 MG/3 ML VIAL.NEB. INHALATION (14:58)
--- NOTE | 2023-09-28 15:47 | NURSING ---
Pt is A/O x3, pt anxious but otherwise pleasant, pt is able to be involved in POC. Patient educated on the effects of Hydralazine. MD notified of pt elevated blood pressure and pulse range of 111-114 BPM. Primary Nurse also notified of elevated blood pressure and pulse. Student asked primary nurse if there was a beta balta to give instead of the Hydralazine due to the rebound effects of the medicine on the heart rate. Pt agrees to taking medication. Dr. Peri Bauman requested that patient be reevaluated at [phone] to see if she is able to be discharged home today or to stay the night. Josiane CALDERON
--- NOTE | 2023-09-28 16:12 | PN.HOSP_ITS ---
Reason for Visit Reason for Visit: Shortness of breath/wheezing Subjective Subjective Patient was feeling very well this morning and anxious to go home. We are wa iting for an amatory pulse ox which had not yet been able to be performed because she developed loose stools which is likely related to the antibiotic she is on. If it continues we will check a C. difficile however the most recent stool was formed mixed with urine. She feels tachycardic and like she is having palpitations and does not feel like she can go home at this time so we will hold off on discharge at this time and reevaluate her tomorrow. Her breathing appears to be much better however. Objective Data Objective Data Vital Signs: Vital Signs Temp Pulse Resp BP Pulse Ox O2 Del Method O2 Flow Rate 97.9 F 88 22 H 170/78 H 95 Room Air 0 09/28/23 14:39 09/28/23 14:59 09/28/23 14:59 09/28/23 14:39 09/28/23 14:39 09/28/23 14:39 09/28/23 11:30 Oxygen Flow Rate (L/min) [ 4 AMBULATING with Oxygen #3] Oxygen Flow Rate (L/min) [ 3 AMBULATING with Oxygen #2] Oxygen Flow Rate (L/min) [ 2 AMBULATING with Oxygen #1] Oxygen Flow Rate (L/min) [ 0 AMBULATING on Room Air] Oxygen Flow Rate (L/min) [At 0 REST on Room Air] Oxygen Flow Rate (L/min) 3 Oxygen Delivery Method Room Air Weight: 47.63 kg Body Mass Index (BMI) 19.3 Intake & Output: Intake and Output for Last 24 Hours 09/26/23 09/27/23 09/28/23 23:59 23:59 23:59 Intake Total 2059 1040 / 1040 Balance 2059 1040 / 1040 Lab / Micro Data 09/28/23 07:00 09/28/23 07:00 Labs: Laboratory Results - last 24 hr 09/28/23 07:00: WBC 5.0, RBC 4.43, Hgb 13.3, Hct 40.8, MCV 92.1, MCH 30.0, MCHC 32.6, RDW Std Deviation 50.6 H, RDW Coeff of Sherita 14.9 H, Plt Count 376, MPV 9.5, Sodium 138, Potassium 4.0, Chloride 102, Carbon Dioxide 32.0, Anion Gap 4 L, BUN 18, Creatinine 0.64, Estim Creat Clear Calc 44.28, Est GFR (MDRD) Af Amer 116, Est GFR (MDRD) Non-Af 96, BUN/Creatinine Ratio 28.2 H, Glucose 113 H, Calcium 9.4 Micro: Microbiology 09/27/23 13:10 Mucosa - Nasopharyngeal Respiratory Panel (PCR) - Final Physical Exam Const alert, oriented x3 and no apparent distress; Negative for average body habitus, healthy appearing or well nourished Constitutional Narrative: Very pleasant, older, white female, sitting up in chair at the bedside, thin, watching television, nontoxic and appears well General Appearance: cooperative HEENT normocephalic, head/scalp atraumatic, hearing grossly normal bilaterally and moist oral mucous membranes HEENT Narrative: Mallampati is 2, no thrush Resp normal respiratory effort, no retractions, no use of accessory muscles and clear to auscultation bilaterally Resp Narrative: Severely diminished diffusely but no adventitious sounds Auscultation: Negative for rales, rhonchi or wheezes Cardio regular rate, regular rhythm, S1 normal heart sound, S2 normal heart sound, no murmurs, no rub, no gallops and no clicks GI normal to inspection, nondistended, normoactive bowel sounds, soft to palpation and non-tender Extremity no clubbing, cyanosis or edema Extremity Narrative: Pedal pulses are 2+, radial pulses are 2+, significantly decreased lean muscle mass Neuro oriented x3, moves all extremities and no focal motor deficits Speech: speech normal Psych affect normal Psych Narrative: Very pleasant, interacts appropriately Assessment & Plan Assessment/Plan (1) Hypoxia: (2) COPD exacerbation: (3) Dysuria: PLAN: Plan Acute hypoxia secondary to acute exacerbation of COPD -Baseline FEV1 is 31% -Patient was on room air earlier but now was 88% on room air at rest with tachycardia -On 2 L nasal cannula -COVID/flu/RSV was negative at outside facility -Respiratory viral panel was unremarkable -Continue steroids 40 mg p.o. IV every 8 -Will use extended prednisone taper at discharge -Patient has some prednisone at home with 22 tablets left -Add scheduled DuoNebs -Continue as needed albuterol -Continue Lasix 40 mg -Continue I-S -Continue Acapella Loose stool/diarrhea -Will check for C. difficile/enteric panel if patient produces a loose enough specimen -Suspect related to antibiotics Tachycardia -Check EKG to rule out atrial fibrillation/MAT -If not sinus tachycardia will check echocardiogram -Check D-dimer -She is at high risk for both of these with her history of lung disease -TSH is WNL Dysuria/abnormal UA -Urine culture is pending -Will discontinue Keflex as it caused loose stool/diarrhea -Start ciprofloxacin 250 mg p.o. twice daily and will treat for total 3 days as this is an uncomplicated UTI Anemia -This is very mild and stable but appears to be new when compared to July -Will monitor Hypertension -Continue Lasix but increase to 40 p.o. daily -Increase hydralazine to 50 mg 3 times daily as she is persistently hypertensive and has been on previous admissions as well -Continue home losartan 100 mg daily Chronic lower extremity edema -Likely related to her COPD -Continue Lasix 40 mg a day -Dose was increased History of hyponatremia -Appears to be of related to hydrochlorothiazide -Has been stable on Lasix next-continue to monitor with increased dose of Lasix COPD -Follows with pulmonary medicine -Hold inhalers until discharge and restart at that time -Recommend close outpatient follow-up with pulmonary medicine after discharge Osteoporosis -Continue vitamin D supplementation -Continue calcium carbonate History of tobacco abuse -Remote -Encourage ongoing cessation DVT prophylaxis -Continue Lovenox subcu 40 daily CODE STATUS -Full code Charges/Coding Visit Charges Inpatient E&M: 17068 Subs Hosp L2
--- NOTE | 2023-09-28 16:17 | EKG12_ITS ---
Test Reason : TACHYCARDIA Blood Pressure : / mmHG Vent. Rate : 118 BPM Atrial Rate : 118 BPM P-R Int : 120 ms QRS Dur : 076 ms QT Int : 334 ms P-R-T Axes : 082 087 079 degrees QTc Int : 468 ms Sinus tachycardia Otherwise normal ECG No previous ECGs available Confirmed by JOSE LI, FELICITAS ([id number]), market editor SHELLI CHAHAL ([id number]) on 10/01/2023 11:27:44 AM Referred By: ANA Confirmed By:FELICITAS GARCIA MD
--- NOTE | 2023-09-28 16:19 | NURSING ---
pSN notified for EKG.
[2023-09-28 17:17] LABS: D-Dimer Quantitative (DVT/PE) 2.07 FEU/ug/m (0.27-0.49)
--- NOTE | 2023-09-28 17:18 | CT_ITS ---
STUDY: CTA CHEST REASON FOR EXAM: Female, 77 years old. elevated d-dimer RADIATION DOSAGE (If Supplied By Facility): CTDIvol = ( 2.86 ) mGy, DLP = ( 114.52 ) mGycm TECHNIQUE: The examination was performed with the intravenous administration of IV 75mL Isovue-370. Post-processing of the angiographic images was performed, with multiplanar reformation and 3D reconstruction. Individualized dose optimization techniques were used for this CT. COMPARISON: None. FINDINGS: Normal enhancement of the main pulmonary artery and right and left pulmonary arteries. Normal enhancement of the bilateral peripheral pulmonary arteries. There is no demonstrated pulmonary embolism. Mild atherosclerotic change of the aorta without evidence for aneurysm There is no demonstrated aortic dissection. Heart size is normal. There is a small pericardial effusion. No appreciable coronary artery calcification. Normal mediastinum. Normal hilar regions. Normal visualized trachea and bronchi. The lungs are well expanded. Lungs are hyperinflated and there is diffuse interstitial thickening with centrilobular emphysematous changes bilaterally. There is minimal scarring or subsegmental atelectasis of both lower lobes . Normal pleura. Normal chest wall structures. Dorsal spine demonstrates arthritic changes. Small hiatal hernia noted Nonspecific gastric distention. Pneumobilia likely due to prior cholecystectomy. Left renal cysts which will not require additional imaging. CT/CTA Chest W/WO Contrast IMPRESSION: Diffuse COPD and ASHD.. No acute cardiopulmonary pathology. No evidence for pulmonary embolus Electronically Signed: Maxi Schultz MD at 18:29 EDT ,
--- NOTE | 2023-09-28 18:01 | NURSING ---
This Rn nursing tech approves and cosigns all notes and documentation from nursing department chairperson Alissa Patel. Delma Ramsey MSN, Rn
[2023-09-28] MEDS: Ciprofloxacin 250 MG Tablet PO (22:38)
[2023-09-28] MEDS: Menthol/Lanolin/Calamine/Znox 113 GM Tube 1 APPLIC TOPICAL (22:41)
[2023-09-28] MEDS: hydrALAZINE 50 MG Tablet PO (22:41)
[2023-09-29] VITALS (8 sets, daily range): BP systolic 138–180; BP diastolic 76–91; PULSE 83–98; RESP 16–20; TEMP 36.3–36.8; O2SAT 90–97; BMI 19.1
[2023-09-29] MEDS: 0.9% Saline Lock 10 ML Syringe IV (05:54)
[2023-09-29] MEDS: hydrALAZINE 50 MG Tablet PO (06:00)
[2023-09-29] MEDS: Levothyroxine 100 MCG Tablet PO (06:08)
[2023-09-29 06:22] LABS: Hematocrit 38.3 % (37-47); Hemoglobin 12.8 g/dL (12.0-15.0); Mean Corp Hgb Conc 33.4 g/dL (32-36); Mean Corpuscular Hgb 30.8 pg (27.0-32.0); Mean Corpuscular Volume 92.1 fL (81-99); Mean Platelet Vol. 9.1 fl (6.2-12.0); Platelet Count 343 K/mm3 (150-450); RBC Distribution Width CV 15.1 % (11.6-14.6); RBC Distribution Width SD 50.7 fl (35.1-43.9); Red Blood Count 4.16 M/mm3 (4.2-5.4)
[2023-09-29 06:47] LABS: Anion Gap 3 (5-15); BUN 18 mg/dL (7-18); BUN/Creat Ratio 24.3 RATIO (10-20); Calcium,Total 8.8 mg/dL (8.5-10.1); Chloride 102 mmol/L (98-107); Creatinine, Serum 0.74 mg/dL (0.55-1.02); EST Glomerular Filtration Rate 81 mL/min (>60); Est Glom Filt Rate - Afr Amer 98 mL/min (>60); Estimated Creatinine Clearance 43.88 ml/min; Glucose 94 mg/dL (74-106); Potassium 3.7 mmol/L (3.5-5.1); Sodium Level 139 mmol/L (136-145)
[2023-09-29] MEDS: Ipratropium/Albuterol Sulfate 3 ML AMPUL.NEB INHALATION ×2 (07:32→11:32)
--- NOTE | 2023-09-29 08:01 | VDLE_ITS ---
Reason For Study: Elevated D-Dimer RIGHT LEFT GSV is normal. GSV is normal. CFV is compressible, spontaneous, phasic, CFV is compressible, spontaneous, phasic, competent and demonstrates normal competent, and demonstrates normal augmentation. augmentation. FV is compressible, spontaneous, phasic, FV is compressible, spontaneous, phasic, competent and demonstrates normal competent and demonstrates normal augmentation. augmentation. POP V is compressible, spontaneous, phasic, POP V is compressible, spontaneous, phasic, competent and demonstrates normal competent and demonstrates normal augmentation. augmentation. T/P Trunk is compressible. T/P Trunk is compressible. PTV is compressible. PTV is compressible. RT PerV is compressible. LT PerV is compressible. Non Vascularized anechoic area measuring Non Vascularized anechoic area measuring approximately 4.89cm x 1.02cm is noted in the approximately 3.01cm x 1.86cm is noted in the Rt POP Fossa. Lt POP Fossa. Procedure This is a venous duplex using B-mode, color flow and spectral Doppler. Exam performed portable in patient room. The exam was diagnostic. A preliminary report was called and/or faxed to M/S 3 marketing automation analyst. VL/Venous Duplex US - Deepak Extrem Interpretation Summary Deep veins of the lower extremities are bilaterally patent and compressible seg mentally. There is no evidence of deep vein thrombosis on either side. Valvular competence appears in tact within the proximal deep venous systems bilaterally. The great saphenous veins appear bila terally patent and compressible segmentally. A non-vascular, hypoechoic structure is noted in the popliteal fossa bilaterally, with dimensions as documented above. These likely represent poplit eal cysts. Clinical correlation is advised. Ordering Physician: Peri Bauman Referring Physician: Don Bautista Performed By: Winston Valdez RVT
[2023-09-29] MEDS: Famotidine 20 MG Tablet PO (08:16)
[2023-09-29] MEDS: Thiamine Hydrochloride 100 MG Tablet 200 MG PO (08:16)
[2023-09-29] MEDS: Cholecalciferol (VIT D3) 25 MCG TABLET (1,000 UNITS) PO (08:16)
[2023-09-29] MEDS: Furosemide 40 MG Tablet PO (08:16)
[2023-09-29] MEDS: Potassium Chloride Oral Tablet 20 MEQ PO (08:17)
[2023-09-29] MEDS: Losartan Potassium 100 MG Tablet PO (08:17)
[2023-09-29] MEDS: Menthol/Lanolin/Calamine/Znox 113 GM Tube 1 APPLIC TOPICAL (08:17)
[2023-09-29] MEDS: Calcium (Elemental) 500 MG Tablet PO (08:17)
[2023-09-29] MEDS: Multivitamins,Therapeutic Tablet 1 TABLET PO (08:17)
[2023-09-29] MEDS: Enoxaparin 40 MG/0.4 ML Syringe SC (08:18)
[2023-09-29 09:56] LABS: Rheumatoid Factor < 10.0 IU/mL (<15)
[2023-09-29] MEDS: Ciprofloxacin 250 MG Tablet PO (10:46)
--- NOTE | 2023-09-29 11:32 | DS.PCM_ITS ---
Providers Date of Admission: 09/26/23 Date of Discharge: 09/29/23 Primary Care Physician: Dr. Don Bautista MD Reason For Visit: ACUTE EXACERBATION OF COPD WITH REPIRATORY Diagnosis Discharge Diagnosis (1) Hypoxia: Status: Acute Code(s): R09.02 - Hypoxemia (2) COPD exacerbation: Status: Chronic Code(s): J44.1 - Chronic obstructive pulmonary disease with (acute) exacerbation (3) Dysuria: Status: Acute Code(s): R30.0 - Dysuria Medications at Discharge Home Medications calcium carbonate 500 mg PO DAILY 07/25/23 multivitamin 1 tab PO DAILY 07/25/23 fluticasone fur. 200 mcg-umeclid 62.5 mcg-vilant 25 mcg inhalat.powder (Trelegy Ellipta) See Rx Instructions inhalation Q24H breathing 07/28/23 levothyroxine 100 mcg tablet 100 mcg PO DAILY thyroid 07/28/23 losartan 100 mg tablet 100 mg PO DAILY blood pressure 07/28/23 albuterol sulfate 90 mcg/actuation aerosol inhaler (Ventolin HFA) 2 puff inhalation Q6H PRN shortness of breath or wheezing 08/02/23 cholecalciferol (vitamin D3) 25 mcg (1,000 unit) tablet 25 mcg PO DAILY 08/02/23 potassium chloride 20 mEq tablet,extended release 20 meq PO DAILY #90 tabs 08/02/23 thiamine HCl (vitamin B1) 100 mg tablet 200 mg PO DAILY 08/02/23 hydralazine 25 mg tablet 25 mg PO TID #270 tabs 09/10/23 albuterol sulfate 2.5 mg/3 mL (0.083 %) solution for nebulization 2.5 mg inhalation Q4H PRN shortness of breath or wheezing 09/24/23 azithromycin 250 mg tablet 250 mg PO QMWF #12 tabs 09/29/23 ciprofloxacin HCl 250 mg tablet 250 mg PO BID #3 tabs 09/29/23 furosemide 40 mg tablet 40 mg PO DAILY #30 tabs 09/29/23 prednisone 10 mg tablet 10 mg PO DAILY #18 tabs 09/29/23 Hospital Course Operations None Procedures - (CTA chest/lower extremity Dopplers) Summary of Care Provided Minutes Spent on Discharge: 39 Hospital Course: Mrs. Le is a 77-year-old white female who presented to outside hospital on 09/26/2023 due to shortness of breath and wheezing. She reported her symptoms started about 7-14 days prior to admission and she had gradually worsening dyspnea on exertion that progressed to shortness of breath at rest and wheezing. She has a history of COPD with an FEV1 of 31% predicted on her last PFTs and follows as an outpatient with [facility]. She did see the nurse ira knutson at the pulmonary office on the 23 of September and was started on a prednisone taper. She had taken two 40 mg doses but stated her symptoms were still worsening so she decided to go to the emergency department at [facility]. She was placed on 3 L nasal cannula and then was transferred here for further evaluation and treatment. She also complained of dysuria and her UA which was done at [facility] was consistent with UTI. There was originally some concern that she may have a pneumonia so she was placed on doxycycline however imaging showed no infiltrate and she had no elevated white count so we were able to discontinue the doxycycline however with her complaint of dysuria we started Keflex and obtained a urine culture. Unfortunately urine culture was not able to be obtained until after the antibiotics were initiated. Her urine culture was unremarkable however she was treated for 3 days with antibiotics. She did end up with diarrhea related to the cast mayo so she was transition to Cipro 250 mg twice daily and had 1 day to complete at the time of discharge. We are actually preparing for discharge with regards to her COPD exacerbation on 09/28/2023 as she was feeling much better after being on the steroids and supportive care for her COPD however that she then developed significant tachycardia and shortness of breath. I obtained a D-dimer which is elevated at 2.02 so we obtained a CTA of the chest. CTA showed diffuse COPD and atherosclerotic heart disease but no acute cardiopulmonary pathology or evidence of a pulmonary embolus. We also obtained bilateral lower extremity Dopplers to rule out DVT which was negative for any noncompressible disease in her lower extremities. She indicated that the swelling in her legs had been worse as of recently so we did increase her Lasix from 20 to 40 mg the day after her admission. She tolerated this fairly well and had stable sodium so she was discharged on this increased dose. She has significantly severe lung disease as noted above with her FEV1 being 31% and she has marked abnormalities consistent with severe emphysematous changes on her CT. Given this and her ongoing shortness of breath at home and the fact that she is already on triple therapy for her lung disease we did start her on azithromycin 250 mg 3 times weekly (Sunday. I did discuss this with Dr. Berman. She has a 6- minute walk test scheduled for October 17 and she was instructed to continue to do this as she will been off steroids for couple of days at that time. She also has an upcoming pulmonary medicine appointment the week following her 6-minute talk test and was encouraged to keep this appointment. An ambulatory pulse ox was done prior to discharge and she did not require any supplemental oxygen. Her oxygen saturation at rest was anywhere from 93 to 96% and her oxygen saturation with fairly extensive ambulation was 90% on room air. I would not be surprised and I did discuss this with her if she does require supplemental oxygen after her 6-minute walk test. She is well aware of the severity of her lung disease. I do encourage further outpatient conversation with regards to her CODE STATUS as I am not sure she will ever come off the ventilator if she requires mechanical ventilation. Prescriptions for her prednisone taper, Cipro for her UTI, azithromycin to start next Sunday for her lungs to decrease inflammation, and Lasix new dosing. I have asked her to call her primary care physician and get a follow-up BMP to be done in the next 5 to 7 days to reassess her sodium and renal function with a change in her Lasix dosing. We also discussed utilizing omeprazole 20 mg twice daily while she is on steroids to eliminate the GI complications that can result from prednisone use. She does have significant ulnar deviation of her hands from the MCPs distally which looks consistent with RA. I am not sure that the level of her lung severity correlates directly with her tobacco abuse history so I did assess a rheumatoid factor and anti-CCP both of which were pending at the time of discharge. 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 She was able to be discharged home in stable condition on 09/29/2023. Discharge diagnoses: Acute hypoxia secondary to acute exacerbation of COPD-resolved Loose stool/diarrhea secondary to antibiotics-resolved Tachycardia-improved Dysuria/abnormal UA Anemia Hypertension Chronic lower extremity edema Elevated D-dimer-PE/DVT ruled out History of hyponatremia-stable even with increased Lasix dosing Osteoporosis History of tobacco abuse Physical Exam Const alert, oriented x3 and no apparent distress; Negative for average body habitus, healthy appearing or well nourished Constitutional Narrative: Very pleasant, older, white female, sitting up in chair at the bedside, thin, watching television, nontoxic and appears well General Appearance: cooperative, comfortable and well developed Orientation / Consciousness: awake, oriented to person, oriented to place and oriented to time Exam Limitations: no limitations Nutritional Appearance: thin HEENT normocephalic, head/scalp atraumatic, hearing grossly normal bilaterally and moist oral mucous membranes HEENT Narrative: Mallampati 2, no thrush Eyes PERRL, EOMs intact bilaterally and conjunctivae normal Eyes Narrative: No scleral icterus Neck no lymphadenopathy and supple Neck Narrative: Trachea midline, no thyroid enlargement Resp normal respiratory effort, no retractions, no use of accessory muscles and clear to auscultation bilaterally Resp Narrative: Severely diminished diffusely but no adventitious sounds-improved air movement since admission Auscultation: Negative for rales, rhonchi or wheezes Cardio regular rate, regular rhythm, S1 normal heart sound, S2 normal heart sound, no murmurs, no rub, no gallops and no clicks GI normal to inspection, nondistended, normoactive bowel sounds, soft to palpation and non-tender Extremity normal to inspection, full ROM and no clubbing, cyanosis or edema Extremity Narrative: Pedal pulses are 2+, radial pulses are 2+, significantly decreased lean muscle mass Skin no rashes or lesions noted, no wounds, skin turgor normal and no jaundice Neuro oriented x3, CN's II-XII intact bilaterally, moves all extremities and no focal motor deficits Sensorium / Orientation: awake, alert, oriented to person, oriented to place and oriented to time Speech: speech normal Psych affect normal Psych Narrative: Very pleasant, interacts appropriately Weight / BMI Weight Weight: 47.2 kg Body Mass Index (BMI) 19.1 ABG / Lab / Microbiology Data 09/29/23 06:14 09/29/23 06:14 Laboratory: Laboratory Results - last 24 hr 09/28/23 16:45: D-Dimer Quant (PE/DVT) 2.07 H* 09/29/23 06:14: WBC 5.0, RBC 4.16 L, Hgb 12.8, Hct 38.3, MCV 92.1, MCH 30.8, MCHC 33.4, RDW Std Deviation 50.7 H, RDW Coeff of Sherita 15.1 H, Plt Count 343, MPV 9.1, Sodium 139, Potassium 3.7, Chloride 102, Carbon Dioxide 34.0 H, Anion Gap 3 L, BUN 18, Creatinine 0.74, Estim Creat Clear Calc 43.88, Est GFR (MDRD) Af Amer 98, Est GFR (MDRD) Non-Af 81, BUN/Creatinine Ratio 24.3 H, Glucose 94, Calcium 8.8, Rheumatoid Factor < 10.0 Microbiology: Microbiology 09/27/23 11:07 Urine, Clean Catch Urine Culture - Final Culture exhibits no growth. 09/27/23 13:10 Mucosa - Nasopharyngeal Respiratory Panel (PCR) - Final Radiography Diagnostic Testing: Radiology Impression Chest CTA 09/28/23 17:18 IMPRESSION: Diffuse COPD and ASHD.. No acute cardiopulmonary pathology. No evidence for pulmonary embolus Electronically Signed: Maxi Schultz MD at 18:29 EDT Reading Location ID and State: [facility] / [place] Tel , Service support , D/C Instructions Discharge Diet: No restrictions Discharge Activity: Return to Normal Activity Meaningful Use Info Meaningful Use Diagnoses (Choose all that apply): None applicable Discharge Plan Admission Admit Date/Time: 09/26/23 19:10 Primary Reason for Your Visit: Shortness of breath Attending Provider: Peri Bauman Primary Care Provider: Don Bautista Consulting Providers: Anand Palencia Instructions Additional Instructions / Restrictions: 1. Your Lasix was increased from 20 to 40 mg daily per our discussion with regards to your edema. A new prescription was sent to your local pharmacy to reflect this but you may take 220 mg tablets to equate this dose as well so you do not waste any medication. 2. Please call your primary care physician and asked them to get a basic metabolic profile to be done next week in the next 5 to 7 days to reassess your kidney function and your electrolytes with the change in the above Lasix 3. Please take tomorrow's doses of Cipro and then stop antibiotics. After you have completed the Cipro please start the azithromycin for your lungs on 10/01/2023. 4. Take your prednisone taper as instructed. Monitor your mouth closely for de velopment of white plaques or tongue pain which could be indicative of yeast related to steroid use and if this occurs please call your primary care physician. -Your blood pressure and blood sugars will run higher than typical while you are on steroids you could also feel somewhat jittery and have difficulty sleeping along with some elevated heart rates. 5. You may do your 6-minute walk test that is scheduled for October 18, 2023 and please follow-up with pulmonary medicine accordingly. -I would not be surprised if you do qualify for oxygen on your 6-minute walk test 6. Consider using omeprazole 20 mg twice daily while you are on steroids but okay to discontinue after you have completed oral steroids. 7. Please combine the 18 tablets of prednisone with the home 22 tablets that you have and take the prednisone taper as instructed on the bottle from the pharmacy. It will be 4 tablets x 4 days, 3 tablets x 4 days, 2 tablets x 4 days, and 1 tablet x 4 days. 8. Please continue to use your Acapella and your incentive spirometry about 4 times a day 10 times each. 9. We did draw a rheumatoid factor and anti-CCP antibodies to assess for rheumatoid disease and these were pending at discharge and will need outpatient follow-up. Discharge Orders/Prescriptions Prescriptions: New furosemide 40 mg Tablet 40 mg PO DAILY Qty: 30 0RF ciprofloxacin HCl 250 mg Tablet 250 mg PO BID Qty: 3 0RF prednisone 10 mg tablet 10 mg PO DAILY Qty: 18 0RF Rx Instructions: Combine this with the prednisone that you already have at home and take 4 tablets x 4 days, 3 tablets x 4 days, 2 tablets x 4 days, and 1 tablet x 4 days and then stop azithromycin 250 mg tablet 250 mg PO QMWF Qty: 12 0RF Continued albuterol sulfate 2.5 mg /3 mL (0.083 %) solution for nebulization 2.5 mg inhalation Q4H PRN (Reason: shortness of breath or wheezing) calcium carbonate 500 mg calcium (1,250 mg) tablet 500 mg PO DAILY albuterol sulfate [Ventolin HFA] 90 mcg/actuation HFA aerosol inhaler 2 puff inhalation Q6H PRN (Reason: shortness of breath or wheezing) cholecalciferol (vitamin D3) 25 mcg (1,000 unit) tablet 25 mcg PO DAILY thiamine HCl (vitamin B1) 100 mg tablet 200 mg PO DAILY potassium chloride 20 mEq tablet extended release 20 meq PO DAILY Qty: 90 3RF multivitamin Tablet 1 tab PO DAILY levothyroxine 100 mcg tablet 100 mcg PO DAILY Patient Comments: 1 TABLET DAILY losartan 100 mg tablet 100 mg PO DAILY Patient Comments: 1 TABLET DAILY Trelegy Ellipta 200-62.5-25 mcg blister with device See Rx Instructions INHALATION Q24H Patient Comments: INHALE 1 PUFF DAILY Rx Instructions: 200 mcg inhaled every 24 hours; hydralazine 25 mg tablet 25 mg PO TID Qty: 270 0RF Discontinued prednisone 10 mg tablet 10 mg PO QDAY Qty: 30 0RF Rx Instructions: take 4 tabs for three days, then 3 tabs for three days, then 2 tabs for three days, then 1 tab for 3 days furosemide 20 mg tablet 20 mg PO DAILY Qty: 90 3RF Referrals / Follow Up: Don Bautista MD [Primary Care Provider] - Within 1 Week Torri Burnette NP, UNDERGROUND UTILITY LOCATOR-C [Med Staff - [facility]] - See Referral Note (As scheduled for the second week of October) Disposition Disposition (needs filled in before D/C Order can be placed): Home, Self Care Charges/Coding Visit Charges Inpatient E&M: 51245 Disch Hosp >30min
[2023-10-01 13:07] LABS: CCP IgG Antibodies 9 units (0-19)
== END 2023-09-29 13:34 | disposition home or self-care (01) | DRG 191 ==
PROVIDERS: Internal Medicine; Admitting Provider Family Medicine; PCP Family Medicine; Visit Provider Internal Medicine
DX: J44.1 Chronic obstructive pulmonary disease with (acute) exacerbation (principal); K52.1 Toxic gastroenteritis and colitis; M05.10 Rheumatoid lung disease with rheumatoid arthritis of unspecified site; E03.9 Hypothyroidism, unspecified; I10 Essential (primary) hypertension; D64.9 Anemia, unspecified; E78.2 Mixed hyperlipidemia; M19.90 Unspecified osteoarthritis, unspecified site; I25.10 Atherosclerotic heart disease of native coronary artery without angina pectoris; H35.30 Unspecified macular degeneration; R30.0 Dysuria; R09.02 Hypoxemia; M81.0 Age-related osteoporosis without current pathological fracture; R00.0 Tachycardia, unspecified; R60.0 Localized edema; T36.1X5A Adverse effect of cephalosporins and other beta-lactam antibiotics, initial encounter; Z79.51 Long term (current) use of inhaled steroids; Z87.891 Personal history of nicotine dependence
CPT/HCPCS: 36415; 71275; 80048; 80053; 83735; 84100; 84443; 85025; 85027; 85379; 86200; 86431; 87086; 87633; 93005; 93970; 94640; 94668; 99252; J7030; Q9967; A4216; G0463

== ENCOUNTER → 2023-10-04 | Outpatient (CLI) | payer MEDICARE, SELFPAY ==
[2022-12-08 08:40] VITALS: BMI 19.7
[2023-10-04 15:26] LABS: Absolute Lymphocyte Count 1.15 X10^3/uL (0.83-4.51); Absolute Neutrophil Count 6.6 X10^3/uL (2.0-7.7); Basophil# 0.04 X10^3/uL; Basophil% 0.5 % (0-1); Hematocrit 43.8 % (37-47); Lymphocyte # 1.15 X10^3/ul (0.83-4.51); Lymphocyte % 13.5 % (19-41); Mean Corpuscular Hgb 29.7 pg (27.0-32.0); Mean Corpuscular Volume 92.8 fL (81-99); Mean Platelet Vol. 9.8 fl (6.2-12.0); Monocyte# 0.67 X10^3/uL; Monocyte% 7.8 % (0-10); NRBC Flagged by Analyzer 0 % (0-5); Neutrophil # 6.64 X10^3/uL (2.7-7.7); Neutrophil % 77.7 % (47-70); Platelet Count 457 K/mm3 (150-450); RBC Distribution Width CV 15.2 % (11.6-14.6); RBC Distribution Width SD 52.3 fl (35.1-43.9); Red Blood Count 4.72 M/mm3 (4.2-5.4); White Blood Count 8.5 K/mm3 (4.4-11.0)
[2023-10-04 16:04] LABS: Vitamin D,25 Hydroxy 49.9 ng/mL
[2023-10-04 16:19] LABS: ALB/GLOB Ratio 1.2 RATIO (0.9-2.4); AST(SGOT) 31 U/L (15-37); Alanine Aminotransfer ALT/SGPT 41 U/L (13-56); Albumin, Serum 3.9 g/dL (3.2-5.0); Alkaline Phosphatase 73 U/L (45-117); Anion Gap 7 (5-15); BUN 18 mg/dL (7-18); Chloride 99 mmol/L (98-107); Cholesterol 244 mg/dL (200); Creatinine, Serum 0.78 mg/dL (0.55-1.02); EST Glomerular Filtration Rate 76 mL/min (>60); Est Glom Filt Rate - Afr Amer 92 mL/min (>60); Globulin 3.2 g/dL (2.2-4.2); Glucose 117 mg/dL (74-106); High Density Lipoprotein 147 mg/dL; Potassium 3.8 mmol/L (3.5-5.1); Protein, Total 7.1 g/dL (6.4-8.2); Sodium Level 139 mmol/L (136-145); T4 Free Direct 1.53 ng/dL (0.76-1.46); Thyroid Stim Hormone (TSH) 2.53 uIU/mL (0.358-3.74); Triglycerides 79 mg/dL; Very Low Density Lipoprotein 16 mg/dL (5-40)
== END | disposition home or self-care (01) ==
LOC: MFPLAB 12:19
PROVIDERS: PCP Family Medicine; Visit Provider Family Medicine
DX: I10 Essential (primary) hypertension (principal); E03.9 Hypothyroidism, unspecified; E55.9 Vitamin D deficiency, unspecified
CPT/HCPCS: 36415; 80053; 80061; 82306; 84439; 84443; 85025

== ENCOUNTER → 2023-11-06 | Outpatient (CLI) | payer MEDICARE, SELFPAY ==
[2022-12-08 08:40] VITALS: BMI 19.7
[2023-11-06 12:56] VITALS: PULSE 100; PULSE 102; PULSE 108; PULSE 93; PULSE 94; PULSE 96; PULSE 98; O2SAT 89; O2SAT 91; O2SAT 92; O2SAT 93; O2SAT 95
--- NOTE | 2023-11-09 11:34 | PCM.PSN.6M ---
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 FIO2 (% Oxygen) 21 Assistive device used: None Pre-test Oxygen Delivery Method Room Air Pulse Ox (%) 93 Pulse Rate (60-100 beats/min) 93 Dyspnea Carol Scale (0-10) 0 Exertion Carol Scale (6-20) 6 1st minute Oxygen Delivery Method Room Air Pulse Ox (%) 95 Pulse Rate (60-100 beats/min) 94 2nd minute Oxygen Delivery Method Room Air Pulse Ox (%) 93 Pulse Rate (60-100 beats/min) 96 3rd minute Oxygen Delivery Method Room Air Pulse Ox (%) 93 Pulse Rate (60-100 beats/min) 98 4th minute Oxygen Delivery Method Room Air Pulse Ox (%) 91 Pulse Rate (60-100 beats/min) 100 5th minute Oxygen Delivery Method Room Air Pulse Ox (%) 92 Pulse Rate (60-100 beats/min) 102 H 6th minute Oxygen Delivery Method Room Air Pulse Ox (%) 89 Pulse Rate (60-100 beats/min) 108 H Post-test Oxygen Delivery Method Room Air Pulse Ox (%) 95 Pulse Rate (60-100 beats/min) 96 Dyspnea Carol Scale (0-10) 3 Exertion Carol Scale (6-20) 13 Full Laps Walked 9 Partial Lap, Number of Tiles Walked 0 Total Distance Walked (ft) 531 Interpretation Interpretation: The patient ambulated 531 feet over the course of 6 minutes beginning on room air without assistive devices. Pretesting oxygen saturation was noted to be 93% on room air. With ambulation, the hong oxygen saturation was 89%. This represents a significant exertional oxygen desaturation. Recommendations Recommendations: There is no indication for the use of supplemental oxygen at this time. However, close interval follow-up was recommended, given the degree of oxygen desaturation noted during the study.
== END | disposition home or self-care (01) ==
PROVIDERS: PCP Nurse Practitioner; Referring Provider Nurse Practitioner Acute Care; Visit Provider Nurse Practitioner Acute Care
DX: J43.2 Centrilobular emphysema (principal)
CPT/HCPCS: 94618

== ENCOUNTER → 2023-12-27 | Outpatient (CLI) | payer MEDICARE, SELFPAY ==
[2022-12-08 08:40] VITALS: BMI 19.7
[2023-12-27 12:40] LABS: Anion Gap 6 (5-15); BUN 17 mg/dL (7-18); BUN/Creat Ratio 22.9 RATIO (10-20); Calcium,Total 9.8 mg/dL (8.5-10.1); Chloride 102 mmol/L (98-107); Creatinine, Serum 0.74 mg/dL (0.55-1.02); EST Glomerular Filtration Rate 80 mL/min (>60); Est Glom Filt Rate - Afr Amer 97 mL/min (>60); Glucose 96 mg/dL (74-106); Potassium 4.3 mmol/L (3.5-5.1); Sodium Level 142 mmol/L (136-145)
== END | disposition home or self-care (01) ==
LOC: BIMLAB 09:51
PROVIDERS: PCP Nurse Practitioner; Referring Provider Nurse Practitioner; Visit Provider Nurse Practitioner
DX: I10 Essential (primary) hypertension (principal)
CPT/HCPCS: 36415; 80048

== ENCOUNTER 2024-03-27 11:58 | Emergency (ER) | payer MEDICARE, SELFPAY ==
[2022-12-08 08:40] VITALS: BMI 19.7
[2024-03-27 11:58] VITALS: BP 156/71; PULSE 87; RESP 24; TEMP 36.3; O2SAT 96; O2SAT 97
--- NOTE | 2024-03-27 12:43 | EDS_ITS ---
HPI History of Present Illness Chief Complaint: Shortness of Breath Informant: patient and spouse/S.O. Onset/Context/Timing Onset: Days Context: gradual Timing: Continuous Quality: Positive for Wheezing Current Severity: Mild Maximum Severity: Moderate Worsened by: Exertion and Coughing Relieved by: Oxygen and Albuterol Associated Symptoms cough Chest Pain: Positive for None Narrative Narrative: 78-year-old female history of COPD started on 2 L of oxygen since late January. Had a CTA of her chest in September that was negative she has never had DVT or PE. Since she had COVID 3+ weeks ago. That seemed to get better but she has had a Dry cough either nonproductive or clear phlegm at times since then and has had more wheezing and short of breath. Denies any chest pain. No hemoptysis. No fever. 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-related macular degeneration Abducens nerve palsy Pulmonary nodule Mixed hyperlipidemia Hypothyroidism Hypertension COPD (chronic obstructive pulmonary disease) Home Medications ?Medication ?Instructions ?Recorded ?Last Taken ?Type calcium carbonate 500 mg PO DAILY 07/25/23 09/26/23 History multivitamin 1 tab PO DAILY 07/25/23 Unknown History cholecalciferol (vitamin D3) 25 25 mcg PO DAILY 08/02/23 Unknown History mcg (1,000 unit) tablet thiamine HCl (vitamin B1) 100 mg 200 mg PO DAILY 08/02/23 09/25/23 History tablet potassium chloride 20 mEq 20 meq PO DAILY #90 tabs 10/18/23 Unknown Rx tablet,extended release furosemide 40 mg tablet 40 mg PO DAILY #90 tabs 10/22/23 Unknown Rx albuterol sulfate 2.5 mg/3 mL 2.5 mg (3 mL) inhalation Q4H PRN 11/29/23 Unknown Rx (0.083 %) solution for nebulization shortness of breath or wheezing #180 mL albuterol sulfate 90 mcg/actuation 2 puff inhalation Q6H PRN 11/30/23 Unknown Rx aerosol inhaler (Ventolin HFA) shortness of breath or wheezing #8.5 grams fluticasone fur. 200 mcg-umeclid 1 inh inhalation Q24H #3 ea 12/18/23 Unknown Rx 62.5 mcg-vilant 25 mcg inhalat.powder (Trelegy Ellipta) nirmatrelvir 300 mg (150 mg See Rx Instructions PO .COMPLEX 02/27/24 Unknown Rx x2)-ritonavir 100 mg tablet,dose #30 tabs pack (Paxlovid) levothyroxine 100 mcg tablet 100 mcg PO DAILY thyroid #90 tabs 03/06/24 Unknown Rx losartan 100 mg tablet 100 mg PO DAILY blood pressure #90 03/14/24 Unknown Rx tabs prednisone 20 mg tablet 40 mg (2 x 20 mg) PO DAILY 14 days 03/27/24 Unknown Rx #28 tabs Allergy/AdvReac Type Severity Reaction Status Date / Time No Known Allergies Allergy Verified 03/27/24 12:05 Family History Father COPD (chronic obstructive pulmonary disease) Sister COPD (chronic obstructive pulmonary disease) History of blood clots Hypertension Osteoporosis Mother Lung cancer Hypertension Other Thyroid disorder Surgical History H/O adenoidectomy Hx of tonsillectomy History of bilateral ligation of fallopian tubes H/O colonoscopy Social History Smoking Status: Former smoker how long ago did patient quit smokin years ago alcohol intake: current alcohol intake frequency: a few times a week substance use type: does not use caffeine: Yes Type: coffee Number of servings: 3 what type of physical activity do you participate in: walking and other details: EZ step frequency: 3-4 times per week seatbelt use: always do you feel safe at home: Yes ROS ROS ED ROS Narrative Cough. Shortness of breath. Wheezing. Constitutional Constitutional ED: Denies chills or fever(s) Eyes Eyes: Denies blurry vision ENT ENT ED: Denies ear pain Cardiovascular Cardiovascular: Denies chest pain Respiratory/Chest Respiratory/Chest: Reports cough and dyspnea Gastrointestinal Gastrointestinal: Denies abdominal pain Genitourinary Genitourinary ED: Denies dysuria or hematuria Musculoskeletal Musculoskeletal: Denies arthralgias Integumentary Denies abscess Neurologic Neurologic: Denies headache(s) Psychiatric Psychiatric: Denies anxiety Endocrine Endocrinology: Denies cold intolerance Hematologic/Lymphatic Hematologic/Lymphatic: Denies easy bleeding, easy bruising or lymphadenopathy Allergic/Immunologic Allergic/Immunologic ED: Denies mouth swelling, tongue swelling or urticaria EXAM Physical Exam Narrative Exam Narrative: 78-year-old female vital signs are stable afebrile. On 2 L she is 96%. She is in no distress. present in room. H EENT exam unremarkable. Mytrex membranes. Neck nontender no lymphadenopathy. Lungs prolonged expiratory phase bilaterally. Equal symmetrical. Expiratory wheezes. No rales or rhonchi. Chest wall nontender no crepitance. Heart regular rate and rhythm rate about 85 no murmur. Abdomen soft nontender. Moving all 4 extremities. Nontender no edema in the calves. Equal strength. Back nontender. Neurologically she is awake and alert no focal motor deficits. Const Vital Signs: 03/27/24 11:58 03/27/24 11:58 03/27/24 12:41 Temperature 97.4 F L Temperature Source Temporal Pulse Rate 87 Respiratory Rate 24 H Respiratory Effort Short of Breath Respiratory Depth Normal Respiratory Pattern Normal Blood Pressure 156/71 H Blood Pressure Mean 99 Pulse Ox 96 Oxygen Delivery Method Nasal Cannula Nasal Cannula Nasal Cannula Oxygen Flow Rate (L/min) 2 3 03/27/24 13:00 03/27/24 13:22 03/27/24 14:00 Temperature Temperature Source Pulse Rate 83 84 82 Respiratory Rate 25 H 20 H 22 H Respiratory Effort Respiratory Depth Respiratory Pattern Normal Blood Pressure 154/70 H Blood Pressure Mean 98 Pulse Ox 97 97 Oxygen Delivery Method Nasal Cannula Nasal Cannula Oxygen Flow Rate (L/min) 03/27/24 15:00 Temperature Temperature Source Pulse Rate 99 Respiratory Rate 19 H Respiratory Effort Respiratory Depth Respiratory Pattern Blood Pressure 141/75 H Blood Pressure Mean 97 Pulse Ox 93 Oxygen Delivery Method Oxygen Flow Rate (L/min) Positive well nourished and well developed; Negative for obese, cachectic, contractures or unkempt General Appearance ED: well developed and NAD; Negative for unkempt, cachectic, contractures or pallor Nutritional Appearance: Negative for cachectic or obese HEENT Reports moist mucous membranes; Denies dry mucous membranes Negative for atraumatic, trauma or tenderness Mouth ED: No dry mucous membranes Mouth: No dry mucous membranes Eyes PERRL and EOMs intact bilaterally General Eye ED: Negative for pale conjunctiva or scleral icterus Neck no lymphadenopathy, supple, no meningeal signs and no JVD General: Negative for tenderness Resp No normal respiratory effort and No clear to auscultation bilaterally Auscultation: wheezes Cardio regular rate, regular rhythm, S1 normal heart sound, S2 normal heart sound and no murmurs Rate: Negative for bradycardia or tachycardic Rhythm: Negative for abnormal rhythm GI non-tender, non-distended and no masses Palpation: soft; Negative for tender, guarding or rebound tenderness present Back/Spine no CVA tenderness and normal to inspection General Back: Negative for CVA tenderness Extremity normal to inspection General Extremety ED: Negative for edema or tenderness General Extremity: Negative for edema Neuro oriented x3 and CN's II-XII intact bilaterally Sensorium / Orientation: alert, oriented to person, oriented to place and oriented to time; Negative for orientation impaired, confused, lethargic or stuporous Motor Exam: strength 5/5 throughout Psych mental status grossly normal Appearance: Negative for unkempt Attitude: No agitated and No other Mood & Affect: Negative for depressed, anxious or tearful Thought Process: normal thought process Skin no wounds and skin turgor normal General Skin Exam: Negative for jaundice or pallor Lesions: no lesions Rashes: no rashes Trauma: Negative for abrasion or laceration MDM MDM MDM Narrative Medical decision making narrative: 78-year-old female COPD suspect COPD exacerbation rule out pneumonia versus other causes of shortness of breath. No history of DVT or PE or risk factors. She had negative CTA earlier this year. Clinically I do not think this is a PE. Should be treated with DuoNeb and albuterol aerosols IV Solu-Medrol. Screening labs and chest x-ray and EKG will be obtained. Repeat exam at 3:15 PM patient doing much better. Breathing is much improved after the aerosols and IV steroids. Her and her are comfortable being discharged home. She will be written for a weeks worth of steroids to use at home. I will also give her additional steroid to use as needed when she has these flare ups. We went over her test results. She sees Dr. Berman of pulmonology and has a primary care physician she will follow-up with and ensure that she is improving. Patient's oxygen tank is also out or seeing about getting that refilled for her. History & Record Review Discussion w/independent historian: Patient and Family Additional record(s) reviewed:: Prior inpatient record, Prior outpatient record, Prior ED visit and Prior labs Lab Data Attestation: I reviewed the patient's lab results. Lab results narrative: CBC normal. White count 6. H&H 12.8 and 39. Platelets 336. Electrolytes show no acute abnormality. Gap 5. Normal BUN and creatinine. Glucose 107. Troponin 21. Labs: Laboratory Results - last 24 hr 03/27/24 13:18 WBC 6.0 RBC 4.33 Hgb 12.8 Hct 39.7 MCV 91.7 MCH 29.6 MCHC 32.2 RDW Std Deviation 50.4 H RDW Coeff of Sherita 14.9 H Plt Count 336 MPV 9.4 Immature Gran % (Auto) 0.300 Neut % (Auto) 82.0 H Lymph % (Auto) 9.8 L [place] % (Auto) 7.7 Eos % (Auto) 0.0 Baso % (Auto) 0.2 Absolute Neuts (auto) 4.9 Absolute Lymphs (auto) 0.59 L Nucleated RBC % 0 Sodium 136 Potassium 3.9 Chloride 100 Carbon Dioxide 32.0 Anion Gap 5 BUN 16 Creatinine 0.61 Est GFR (MDRD) Af Amer 121 Est GFR (MDRD) Non-Af 100 BUN/Creatinine Ratio 26.1 H Glucose 107 H Calcium 9.0 Troponin I High Sens 21 Radiography Chest X-Ray - ED: 2 View, Read by ED Physician, Heart, Lungs, Mediastinum, Bony Structures, No Acute Disease and Chronic Changes Diagnostic Testing: Clinical Impression(s) from Imaging Studies Chest X-Ray 03/27/24 14:00 IMPRESSION: Hyperinflation and COPD. No acute abnormality is seen. Electronically Signed: Kai Jara MD at 14:50 EDT , Chest x-ray, 2 views, AP and lateral, interpreted and radiologist shows no acute abnormality. COPD. No infiltrate. No pneumothorax. Normal cardiac silhouette. Rhythm Strip Rhythm Strip: Sinus Rhythm Rate: 81 EKG Initial EKG: Attestation: I personally reviewed and interpreted this EKG as follows: Interpretation: Sinus Rhythm and No Acute Injury Pattern Comments: Normal sinus rhythm. Rate 81. No acute signs of [place] or ischemia. No dysrhythmia. Discharge Plan Triage Chief Complaint: Shortness of Breath ED Provider: Sawyer Robertson Dx/Rx/DC Orders Clinical Impression: Acute exacerbation of chronic obstructive pulmonary disease Instructions: ED COPD Flare Prescriptions: New prednisone 20 mg tablet 40 mg PO DAILY 14 Days Qty: 28 0RF Rx Instructions: Use the prednisone 40 mg a day for 1 week. I wrote you an extra weeks worth so you will have it when you have COPD exacerbation. But only take 7 days of the medication at this time. No Action calcium carbonate 500 mg calcium (1,250 mg) tablet 500 mg PO DAILY cholecalciferol (vitamin D3) 25 mcg (1,000 unit) tablet 25 mcg PO DAILY thiamine HCl (vitamin B1) 100 mg tablet 200 mg PO DAILY multivitamin Tablet 1 tab PO DAILY potassium chloride 20 mEq tablet extended release 20 meq PO DAILY Qty: 90 3RF furosemide 40 mg tablet 40 mg PO DAILY Qty: 90 3RF albuterol sulfate 2.5 mg /3 mL (0.083 %) solution for nebulization 2.5 mg inhalation Q4H PRN (Reason: shortness of breath or wheezing) Qty: 180 11RF albuterol sulfate [Ventolin HFA] 90 mcg/actuation HFA aerosol inhaler 2 puff inhalation Q6H PRN (Reason: shortness of breath or wheezing) Qty: 8.5 11RF Trelegy Ellipta 200-62.5-25 mcg blister with device 1 inh INHALATION Q24H Qty: 3 3RF Paxlovid 300 mg (150 mg x 2)-100 mg tablets,dose pack See Rx Instructions PO .COMPLEX Qty: 30 0RF Rx Instructions: take TWO 150 mg tablets of nirmatrelvir with ONE 100 mg tablet of ritonavir twice daily for 5 days PO levothyroxine 100 mcg tablet 100 mcg PO DAILY Qty: 90 1RF losartan 100 mg tablet 100 mg PO DAILY Qty: 90 0RF Primary Care Provider: Kayla Morel Referrals: Kayla Morel, [facility] [Primary Care Provider] - 3-5 Days if not improving Activity Restrictions/Additional Instructions: Use your inhaler and nebulizer as needed. The steroid prednisone 40 mg a day for the next week. Started tomorrow. We gave you a dose of steroids here through the IV. I wrote you 2 weeks worth of steroids. Only use 1. The other week you can have at home as needed for COPD exacerbations. Follow-up with either your primary care provider or your support team member to ensure you are improving. Return if worse. Print Language: Georgian Disposition Disposition: Home, Self Care
--- NOTE | 2024-03-27 12:45 | EKG12_ITS ---
Test Reason : SHORT OF BREATH Blood Pressure : / mmHG Vent. Rate : 081 BPM Atrial Rate : 081 BPM P-R Int : 142 ms QRS Dur : 094 ms QT Int : 386 ms P-R-T Axes : 085 095 068 degrees QTc Int : 448 ms Normal sinus rhythm Rightward axis Borderline ECG Confirmed by FELICITAS GARCIA MD ([id number]), movie editor SHELLI CHAHAL ([id number]) on 03/28/2024 2:14:21 PM Referred By: FAISAL Confirmed By:FELICITAS GARCIA MD
[2024-03-27 13:00] VITALS: PULSE 83; RESP 25; O2SAT 97
[2024-03-27] MEDS: Albuterol 2.5 MG/3 ML VIAL.NEB. INHALATION ×2 (13:13)
[2024-03-27] MEDS: Ipratropium/Albuterol Sulfate 3 ML AMPUL.NEB INHALATION (13:13)
[2024-03-27] MEDS: MethylPREDNISolone 125 MG/2 ML Vial IV (13:16)
[2024-03-27 13:22] VITALS: PULSE 84; RESP 20
[2024-03-27 13:26] LABS: Absolute Lymphocyte Count 0.59 X10^3/uL (0.83-4.51); Absolute Neutrophil Count 4.9 X10^3/uL (2.0-7.7); Basophil# 0.01 X10^3/uL; Basophil% 0.2 % (0-1); Hematocrit 39.7 % (37-47); Hemoglobin 12.8 g/dL (12.0-15.0); Lymphocyte # 0.59 X10^3/ul (0.83-4.51); Lymphocyte % 9.8 % (19-41); Mean Corp Hgb Conc 32.2 g/dL (32-36); Mean Corpuscular Hgb 29.6 pg (27.0-32.0); Mean Corpuscular Volume 91.7 fL (81-99); Mean Platelet Vol. 9.4 fl (6.2-12.0); Monocyte# 0.46 X10^3/uL; Monocyte% 7.7 % (0-10); NRBC Flagged by Analyzer 0 % (0-5); Neutrophil # 4.93 X10^3/uL (2.7-7.7); POSITIVE DIFFERENTIAL YES; Platelet Count 336 K/mm3 (150-450); RBC Distribution Width CV 14.9 % (11.6-14.6); RBC Distribution Width SD 50.4 fl (35.1-43.9); Red Blood Count 4.33 M/mm3 (4.2-5.4)
--- NOTE | 2024-03-27 13:49 | NURSING ---
STROKE ALERT CALLED
[2024-03-27 13:54] LABS: Anion Gap 5 (5-15); BUN 16 mg/dL (7-18); BUN/Creat Ratio 26.1 RATIO (10-20); Chloride 100 mmol/L (98-107); Creatinine, Serum 0.61 mg/dL (0.55-1.02); EST Glomerular Filtration Rate 100 mL/min (>60); Est Glom Filt Rate - Afr Amer 121 mL/min (>60); Glucose 107 mg/dL (74-106); Potassium 3.9 mmol/L (3.5-5.1); Sodium Level 136 mmol/L (136-145); Troponin-I HS 21 pg/mL (3.0-54.0)
[2024-03-27 14:00] VITALS: BP 154/70; PULSE 82; RESP 22; O2SAT 97
--- NOTE | 2024-03-27 14:00 | RAD_ITS ---
STUDY: X-RAY CHEST REASON FOR EXAM: Female, 78 years old. Chest pain TECHNIQUE: PA and lateral views of the chest. COMPARISON: Comparison is made with prior study July 28, 2023. FINDINGS: EKG electrodes are seen. There is hyperinflation of the lungs consistent with chronic obstructive lung disease (COPD). There is no demonstrated pleural abnormality. Normal size heart. Normal mediastinum and delisa. Normal visualized pulmonary arteries. There is atherosclerotic calcification of the aortic arch with tortuosity. There is demineralization of the osseous structures. Normal visualized ribs, clavicles, and shoulders. There is no demonstrated abnormality of the visualized soft tissue structures of the upper abdomen. RAD/Chest PA and Lateral IMPRESSION: Hyperinflation and COPD. No acute abnormality is seen. Electronically Signed: Kai Jara MD at 14:50 EDT ,
[2024-03-27 15:00] VITALS: BP 141/75; PULSE 99; RESP 19; O2SAT 93
[2024-03-27 16:03] VITALS: BP 136/77; PULSE 81; RESP 18; TEMP 36.7; O2SAT 95
== END 2024-03-27 16:22 | disposition home or self-care (01) ==
PROVIDERS: Emergency Provider Emergency Medicine; PCP Nurse Practitioner; Visit Provider Emergency Medicine
DX: J44.1 Chronic obstructive pulmonary disease with (acute) exacerbation (principal); Z87.891 Personal history of nicotine dependence
CPT/HCPCS: 71046; 80048; 84484; 85025; 93005; 94640; 99283; A4216

== ENCOUNTER → 2024-04-09 | Outpatient (CLI) | payer MEDICARE, SELFPAY ==
[2022-12-08 08:40] VITALS: BMI 19.7
[2024-04-09 15:22] LABS: Absolute Neutrophil Count 3.5 X10^3/uL (2.0-7.7); Basophil# 0.01 X10^3/uL; Basophil% 0.2 % (0-1); Hematocrit 41.9 % (37-47); Hemoglobin 13.4 g/dL (12.0-15.0); Mean Corpuscular Hgb 29.8 pg (27.0-32.0); Mean Corpuscular Volume 93.3 fL (81-99); Mean Platelet Vol. 9.3 fl (6.2-12.0); Monocyte# 0.55 X10^3/uL; Monocyte% 9.6 % (0-10); NRBC Flagged by Analyzer 0 % (0-5); Neutrophil # 3.54 X10^3/uL (2.7-7.7); Platelet Count 418 K/mm3 (150-450); RBC Distribution Width CV 15.1 % (11.6-14.6); RBC Distribution Width SD 52.3 fl (35.1-43.9); Red Blood Count 4.49 M/mm3 (4.2-5.4); White Blood Count 5.7 K/mm3 (4.4-11.0)
[2024-04-09 15:44] LABS: ALB/GLOB Ratio 1.2 RATIO (0.9-2.4); AST(SGOT) 20 U/L (15-37); Alanine Aminotransfer ALT/SGPT 22 U/L (13-56); Albumin, Serum 3.7 g/dL (3.2-5.0); Alkaline Phosphatase 79 U/L (45-117); Anion Gap 4 (5-15); BUN 12 mg/dL (7-18); Calcium,Total 9.4 mg/dL (8.5-10.1); Chloride 99 mmol/L (98-107); Creatinine, Serum 0.63 mg/dL (0.55-1.02); EST Glomerular Filtration Rate 97 mL/min (>60); Est Glom Filt Rate - Afr Amer 117 mL/min (>60); Glucose 92 mg/dL (74-106); Potassium 4.2 mmol/L (3.5-5.1); Protein, Total 6.7 g/dL (6.4-8.2); Sodium Level 135 mmol/L (136-145)
== END | disposition home or self-care (01) ==
LOC: BIMLAB 13:04
PROVIDERS: PCP Nurse Practitioner; Referring Provider Nurse Practitioner; Visit Provider Nurse Practitioner
DX: E78.2 Mixed hyperlipidemia (principal); E03.9 Hypothyroidism, unspecified
CPT/HCPCS: 36415; 80053; 85025

== ENCOUNTER 2024-04-25 11:44 | Inpatient (IN) | payer MEDICARE, SELFPAY ==
[2022-12-08 08:40] VITALS: BMI 19.7
[2024-04-25] VITALS (24 sets, daily range): BP systolic 121–169; BP diastolic 66–140; PULSE 84–114; RESP 17–33; TEMP 36.7–37.4; O2SAT 87–99; BMI 18.1; BMI 17.9
--- NOTE | 2024-04-25 11:57 | RAD_ITS ---
STUDY: X-RAY CHEST REASON FOR EXAM: Female, 78 years old. Cough TECHNIQUE: PA and lateral views of the chest. COMPARISON: Comparison is made with prior study of March 27, 2024. FINDINGS: EKG electrodes are seen. There is hyperinflation of the lungs consistent with chronic obstructive lung disease (COPD). There is no demonstrated pleural abnormality. Normal size heart. Normal mediastinum and delisa. Normal visualized pulmonary arteries. Normal visualized aortic arch and descending thoracic aorta. There are diffuse degenerative changes of the visualized thoracic spine. Normal visualized ribs, clavicles, and shoulders. There is no demonstrated abnormality of the visualized soft tissue structures of the upper abdomen. RAD/Chest PA and Lateral IMPRESSION: Hyperinflation and COPD. No acute infiltrate is seen. Electronically Signed: Kai Jara MD at 13:09 EST ,
--- NOTE | 2024-04-25 11:57 | EKG12_ITS ---
Test Reason : SOB Blood Pressure : */* mmHG Vent. Rate : 104 BPM Atrial Rate : 104 BPM P-R Int : 128 ms QRS Dur : 92 ms QT Int : 324 ms P-R-T Axes : 80 103 62 degrees QTcB Int : 426 ms Sinus tachycardia Rightward axis Borderline ECG Confirmed by JOSE LI, FELICITAS ([id number]), business editor SHELLI CHAHAL ([id number]) on 04/28/2024 10:27:44 AM Referred By: JAVIER/WINNIE Confirmed By: FELICITAS GARCIA MD
--- NOTE | 2024-04-25 11:59 | EDS_ITS ---
HPI <JASON Nelson - Last Filed: 04/25/24 15:56> History of Present Illness Chief Complaint: Shortness of Breath Narrative Narrative: Patient is a 78-year-old female with history of COPD on 2 L nasal cannula, hypertension hypothyroidism, who presents to the emergency department with 2 to 3 days of worsening cough and shortness of breath. Patient has been needing more oxygen recently, did have a flu shot recently. Patient is not been on oxygen in 8 weeks. Last time patient was admitted to the hospital was in January 2024. She is unsure what caused this exacerbation. She denies any fever or chills. [facility] <JASON Nelson - Last Filed: 04/25/24 15:56> [facility] Medical History Hypothyroidism Osteoporosis Former smoker COPD (chronic obstructive pulmonary disease) Hypertension Vitamin D deficiency Hyponatremia Peripheral edema Alcohol use Former light cigarette smoker (1-9 per day) Uterine prolapse Osteopenia Osteoarthritis Leukopenia Age-related macular degeneration Abducens nerve palsy Pulmonary nodule Mixed hyperlipidemia Hypothyroidism Hypertension COPD (chronic obstructive pulmonary disease) Home Medications ?Medication ?Instructions ?Recorded ?Last Taken ?Type calcium carbonate 500 mg PO DAILY 07/25/23 09/26/23 History multivitamin 1 tab PO DAILY 07/25/23 Unknown History cholecalciferol (vitamin D3) 25 25 mcg PO DAILY 08/02/23 Unknown History mcg (1,000 unit) tablet thiamine HCl (vitamin B1) 100 mg 200 mg PO DAILY 08/02/23 09/25/23 History tablet potassium chloride 20 mEq 20 meq PO DAILY #90 tabs 10/18/23 Unknown Rx tablet,extended release albuterol sulfate 2.5 mg/3 mL 2.5 mg (3 mL) inhalation Q4H PRN 11/29/23 Unknown Rx (0.083 %) solution for nebulization shortness of breath or wheezing #180 mL albuterol sulfate 90 mcg/actuation 2 puff inhalation Q6H PRN 11/30/23 Unknown Rx aerosol inhaler (Ventolin HFA) shortness of breath or wheezing #8.5 grams fluticasone fur. 200 mcg-umeclid 1 inh inhalation Q24H #3 ea 12/18/23 Unknown Rx 62.5 mcg-vilant 25 mcg inhalat.powder (Trelegy Ellipta) levothyroxine 100 mcg tablet 100 mcg PO DAILY thyroid #90 tabs 03/06/24 Unknown Rx ipratropium 0.5 mg-albuterol 3 mg 3 ml inhalation Q4H PRN PRN SOB 04/09/24 Unknown Rx (2.5 mg base)/3 mL nebulization &/OR WHEEZING #180 mL soln furosemide 40 mg tablet 40 mg PO DAILY #90 tabs 04/14/24 Unknown Rx losartan 100 mg tablet 100 mg PO DAILY blood pressure #90 04/15/24 Unknown Rx tabs Allergy/AdvReac Type Severity Reaction Status Date / Time No Known Allergies Allergy Verified 04/14/24 13:25 Family History Father COPD (chronic obstructive pulmonary disease) Sister COPD (chronic obstructive pulmonary disease) History of blood clots Hypertension Osteoporosis Mother Lung cancer Hypertension Other Thyroid disorder Surgical History H/O adenoidectomy Hx of tonsillectomy History of bilateral ligation of fallopian tubes H/O colonoscopy Social History Smoking Status: Former smoker how long ago did patient quit smokin years ago alcohol intake: current alcohol intake frequency: a few times a week substance use type: does not use caffeine: Yes Type: coffee Number of servings: 3 what type of physical activity do you participate in: walking and other details: EZ step frequency: 3-4 times per week seatbelt use: always do you feel safe at home: Yes ROS <JASON Nelson - Last Filed: 04/25/24 15:56> ROS ED ROS Narrative Constitutional: Negative for fever, chills, weight loss, weakness Eyes: Negative for vision loss, vision change, double vision ENT: Negative for any sore throat, ear pain, congestion Cardiovascular: Negative for any chest pain, tightness, palpitations Respiratory: Negative for any sputum production, hemoptysis. Positive for cough, dyspnea, dyspnea on exertion, orthopnea Gastrointestinal: Negative for any abdominal pain, nausea, vomiting, diarrhea, constipation, blood in stool, blood in vomit : Negative for any urinary frequency, dysuria, retention, blood in urine Muscle skeletal: Negative for any neck pain, back pain. Complains of bilateral lower leg edema Neurological: Negative for any headache, syncope, dizziness Skin: Negative for any rashes, itching, abrasions, lacerations Psychiatric: Negative for any depression, anxiety, stress, suicidal ideation, homicidal ideation Hematologic: Negative for any excessive bruising, easy bleeding EXAM <JASON Nelson - Last Filed: 04/25/24 15:56> Physical Exam Narrative Exam Narrative: Vital signs reviewed. Patient appears to be in mild respiratory distress, audible wheezing. Patient on 4 L is 94%. HEET: Head normocephalic atraumatic, TMs clear bilaterally. Posterior pharynx is clear, moist mucous membranes. Nares clear bilaterally. Neck: Supple with no lymphadenopathy or tenderness. No signs of meningismus. Cardiac: Tachycardic rate, no murmurs gallops or rubs, equal peripheral pulses bilaterally. Respiratory: Patient has expiratory, inspiratory wheezes throughout pulmonary exam. Minimal airflow. No chest tenderness. Abdomen: Soft, nontender, nondistended. No abdominal bruit or pulsatile masses. No hepatosplenomegaly Extremities: No peripheral edema, no signs of gross trauma or deformity. Active full range of motion of all extremities. Neuro: Cranial nerves II through XII intact, no focal neurological deficits. Skin: Clean dry and intact with no rash, purpura, petechiae, vesicles or pustul es. Backs/flank: No CVA tenderness, no midline spinal tenderness, no deformity. Psych: Normal mood and affect. No SI, HI or acute psychosis. Const Vital Signs: 04/25/24 11:44 04/25/24 11:44 04/25/24 11:57 Temperature 99.3 F H Temperature Source Temporal Pulse Rate 114 H 108 H Respiratory Rate 28 H 32 H Respiratory Effort Respiratory Depth Respiratory Pattern Blood Pressure 165/140 H Blood Pressure Mean 148 Pulse Ox 87 94 Oxygen Delivery Method Nasal Cannula Nasal Cannula Room Air Oxygen Flow Rate (L/min) 2 4 3 04/25/24 11:58 04/25/24 12:15 04/25/24 12:15 Temperature Temperature Source Pulse Rate 103 H Respiratory Rate 26 H Respiratory Effort Short of Breath Labored Accessory Muscle Use Pursed Lip Respiratory Depth Shallow Respiratory Pattern Tachypnea Blood Pressure Blood Pressure Mean Pulse Ox 92 Oxygen Delivery Method Nasal Cannula Nasal Cannula Oxygen Flow Rate (L/min) 3 2 04/25/24 13:04 04/25/24 13:05 04/25/24 13:15 Temperature Temperature Source Pulse Rate 100 99 97 Respiratory Rate 31 H 23 H 26 H Respiratory Effort Respiratory Depth Respiratory Pattern Blood Pressure 169/81 H 150/71 H Blood Pressure Mean 110 89 Pulse Ox 96 97 95 Oxygen Delivery Method Room Air Oxygen Flow Rate (L/min) 04/25/24 13:30 04/25/24 13:45 04/25/24 14:00 Temperature Temperature Source Pulse Rate 91 97 100 Respiratory Rate 20 H 30 H 25 H Respiratory Effort Respiratory Depth Respiratory Pattern Blood Pressure 132/70 H 135/66 H 137/71 H Blood Pressure Mean 87 86 85 Pulse Ox 96 96 96 Oxygen Delivery Method Oxygen Flow Rate (L/min) 04/25/24 14:15 04/25/24 14:30 04/25/24 14:45 Temperature Temperature Source Pulse Rate 106 H 99 97 Respiratory Rate 33 H 23 H 20 H Respiratory Effort Respiratory Depth Respiratory Pattern Blood Pressure 133/87 H 136/76 H 140/74 H Blood Pressure Mean 99 93 88 Pulse Ox 96 96 96 Oxygen Delivery Method Oxygen Flow Rate (L/min) 04/25/24 15:00 04/25/24 15:15 04/25/24 16:00 Temperature Temperature Source Pulse Rate 99 107 H 106 H Respiratory Rate 19 H 26 H 17 Respiratory Effort Respiratory Depth Respiratory Pattern Blood Pressure 149/83 H 132/67 H Blood Pressure Mean 95 85 Pulse Ox 96 94 94 Oxygen Delivery Method Nasal Cannula Oxygen Flow Rate (L/min) 3 04/25/24 16:13 Temperature 98.1 F Temperature Source Pulse Rate 107 H Respiratory Rate 26 H Respiratory Effort Respiratory Depth Respiratory Pattern Blood Pressure 132/67 H Blood Pressure Mean 88 Pulse Ox 94 Oxygen Delivery Method Oxygen Flow Rate (L/min) Positive cachectic General Appearance ED: cachectic Nutritional Appearance: cachectic <Dr. Aden Boyer, DO - Last Filed: 04/25/24 16:47> Physical Exam Const Vital Signs: 04/25/24 11:44 04/25/24 11:44 04/25/24 11:57 Temperature 99.3 F H Temperature Source Temporal Pulse Rate 114 H 108 H Respiratory Rate 28 H 32 H Respiratory Effort Respiratory Depth Respiratory Pattern Blood Pressure 165/140 H Blood Pressure Mean 148 Pulse Ox 87 94 Oxygen Delivery Method Nasal Cannula Nasal Cannula Room Air Oxygen Flow Rate (L/min) 2 4 3 04/25/24 11:58 04/25/24 12:15 04/25/24 12:15 Temperature Temperature Source Pulse Rate 103 H Respiratory Rate 26 H Respiratory Effort Short of Breath Labored Accessory Muscle Use Pursed Lip Respiratory Depth Shallow Respiratory Pattern Tachypnea Blood Pressure Blood Pressure Mean Pulse Ox 92 Oxygen Delivery Method Nasal Cannula Nasal Cannula Oxygen Flow Rate (L/min) 3 2 04/25/24 13:04 04/25/24 13:05 04/25/24 13:15 Temperature Temperature Source Pulse Rate 100 99 97 Respiratory Rate 31 H 23 H 26 H Respiratory Effort Respiratory Depth Respiratory Pattern Blood Pressure 169/81 H 150/71 H Blood Pressure Mean 110 89 Pulse Ox 96 97 95 Oxygen Delivery Method Room Air Oxygen Flow Rate (L/min) 04/25/24 13:30 04/25/24 13:45 04/25/24 14:00 Temperature Temperature Source Pulse Rate 91 97 100 Respiratory Rate 20 H 30 H 25 H Respiratory Effort Respiratory Depth Respiratory Pattern Blood Pressure 132/70 H 135/66 H 137/71 H Blood Pressure Mean 87 86 85 Pulse Ox 96 96 96 Oxygen Delivery Method Oxygen Flow Rate (L/min) 04/25/24 14:15 04/25/24 14:30 04/25/24 14:45 Temperature Temperature Source Pulse Rate 106 H 99 97 Respiratory Rate 33 H 23 H 20 H Respiratory Effort Respiratory Depth Respiratory Pattern Blood Pressure 133/87 H 136/76 H 140/74 H Blood Pressure Mean 99 93 88 Pulse Ox 96 96 96 Oxygen Delivery Method Oxygen Flow Rate (L/min) 04/25/24 15:00 04/25/24 15:15 04/25/24 16:00 Temperature Temperature Source Pulse Rate 99 107 H 106 H Respiratory Rate 19 H 26 H 17 Respiratory Effort Respiratory Depth Respiratory Pattern Blood Pressure 149/83 H 132/67 H Blood Pressure Mean 95 85 Pulse Ox 96 94 94 Oxygen Delivery Method Nasal Cannula Oxygen Flow Rate (L/min) 3 04/25/24 16:13 Temperature 98.1 F Temperature Source Pulse Rate 107 H Respiratory Rate 26 H Respiratory Effort Respiratory Depth Respiratory Pattern Blood Pressure 132/67 H Blood Pressure Mean 88 Pulse Ox 94 Oxygen Delivery Method Oxygen Flow Rate (L/min) MELINA Anglin NP-Jacek - Last Filed: 04/25/24 15:56> [facility] Lab Data Labs: Laboratory Results - last 24 hr 04/25/24 12:08 WBC 8.2 RBC 4.20 Hgb 12.9 Hct 38.6 MCV 91.9 MCH 30.7 MCHC 33.4 RDW Std Deviation 49.5 H RDW Coeff of Sherita 14.6 Plt Count 301 MPV 9.5 Immature Gran % (Auto) 0.400 Neut % (Auto) 75.3 H Lymph % (Auto) 13.2 L Henderson % (Auto) 11.0 H Eos % (Auto) 0.0 Baso % (Auto) 0.1 Absolute Neuts (auto) 6.2 Absolute Lymphs (auto) 1.08 Nucleated RBC % 0 Sodium 136 Potassium 3.8 Chloride 100 Carbon Dioxide 29.0 Anion Gap 8 BUN 15 Creatinine 0.66 Estim Creat Clear Calc 41.09 Est GFR (MDRD) Af Amer 111 Est GFR (MDRD) Non-Af 92 BUN/Creatinine Ratio 22.8 H Glucose 108 H Calcium 8.4 L Troponin I High Sens 27 B-Natriuretic Peptide 86.8 ABG Data ABG results: ABG 04/25/24 12:15 Specimen Type ALBERT Sample Site Not entered VBG pH 7.33 VBG pO2 90 H VBG HCO3 29 H VBG Total CO2 30 VBG O2 Sat (Calc) 96 H VBG Base Excess 3 POC Mix VBG pCO2 Pt Tmp 54.0 H O2 Delivery Device Not entered Radiography Diagnostic Testing: Clinical Impression(s) from Imaging Studies Chest X-Ray 04/25/24 11:57 IMPRESSION: Hyperinflation and COPD. No acute infiltrate is seen. Electronically Signed: Kai Jara MD at 13:09 EST , EKG Sinus tachycardia: Attestation: I personally reviewed and interpreted this EKG as follows: Treatment and Re-Evaluation :: Differential COPD exacerbation, community-acquired pneumonia, hypercapnia, COVID-19 influenza RSV Patient appears to be in mild respiratory distress, patient has audible wheezing, patient has diminished airflow. Presenting to the emergency department for increased shortness of breath over the last 2 to 3 days. Patient will be treated with breathing treatments, IV steroids. Laboratory values including troponin will be ordered. Two-view chest x-ray viral swab. Upon my initial evaluation, the patient does seem to may need admission, however patient will be reevaluated. All radiologic examinations were read, reviewed by the emergency department attending. From these reads, a plan of care will be put in place. On repeat evaluation, the patient was still tachypneic, diminished lung sounds with slight wheezing, however slightly improved. Patient on 3 L is 94%. Chest x-ray was negative for any acute process. Elderly chronic COPD. CBC was ne gative, chemistries was unremarkable patient will ambulate around the department to see if she is able to perform any daily activities without significant hypoxia, tachypnea. Patient dropped to 86%. I did speak with the patient further, she does wear the oxygen only at nighttime, however patient has increased oxygen demand, as well as hypoxia on 2 L. Patient will be admitted with COPD exacerbation. I will reach out to hospitalist. <Dr. Aden Boyer, DO - Last Filed: 04/25/24 16:47> [facility] MDM Narrative Medical decision making narrative: Supervisory Physician Note Patient was seen and examined with the Advanced Practice Provider. Nursing notes and vital signs have been reviewed. Pertinent old records have been reviewed. I agree with the essential elements of the DREW's history, physical exam, assessment, and plan. The differential diagnosis and management options were discussed with the DREW. I participated in determining and agree with the management, procedures, final impression and disposition as documented. See changes noted by me. Please see addendum or separate note for any additional details. 78-year-old female with history of COPD on 2 L nasal cannula at night presents for evaluation of shortness of breath. Associated symptom cough. Denies fever, chills, chest pain, abdominal pain, nausea, vomiting. Follows with pulmonology. Has nebulizers and Trelegy at home. Not on prednisone. Pertinent physical exam findings: CV: Tachycardic, regular rhythm, no murmurs, no peripheral edema Resp: Diminished breath sounds but lungs coarse throughout,+ diffuse expiratory wheeze, tachypneic GI: Abd soft, non-distended, non-tender, no r/r/g Musc: Full ROM, no deformity Skin: Warm, dry, no rash Neuro: Alert, oriented, grossly intact, sensation intact Psych: Cooperative, appropriate mood and affect Differential diagnosis includes but is not limited to COPD exacerbation, pneumonia, viral illness On presentation patient is tachycardic, tachypneic, febrile. DuoNebs, IV steroid ordered for symptoms. EKG and chest x-ray reviewed see below. CBC without leukocytosis or anemia. VBG with minimal hypercapnia. Compensated. BMP relatively unremarkable. Troponin within normal limits. BNP within normal limits. COVID, flu, RSV negative. On reevaluation, patient is requiring 3 L nasal cannula. She does not wear oxygen usually throughout the day. She is still mildly tachycardic and tachypneic. She still has diffuse expiratory whe ezing. Patient's SpO2 drops with ambulation. Patient would benefit from continued breathing treatments as well as steroids. She will warrant admission. Patient was updated of all her results and the plan. She confirmed understanding. Patient states she also does not feel comfortable discharging home. Hospitalist service will admit. EKG: Interpreted by me/EM physician: EKG shows sinus tachycardia with a heart rate of 104. No acute ischemic changes Diagnostic: Interpreted by me/EM physician: Chest x-ray without pneumonia, effusion, cardiomegaly, pneumothorax. Impression: 1. COPD exacerbation 2. Acute on chronic hypoxia Lab Data Labs: Laboratory Results - last 24 hr 04/25/24 12:08 WBC 8.2 RBC 4.20 Hgb 12.9 Hct 38.6 MCV 91.9 MCH 30.7 MCHC 33.4 RDW Std Deviation 49.5 H RDW Coeff of Sherita 14.6 Plt Count 301 MPV 9.5 Immature Gran % (Auto) 0.400 Neut % (Auto) 75.3 H Lymph % (Auto) 13.2 L Henderson % (Auto) 11.0 H Eos % (Auto) 0.0 Baso % (Auto) 0.1 Absolute Neuts (auto) 6.2 Absolute Lymphs (auto) 1.08 Nucleated RBC % 0 Sodium 136 Potassium 3.8 Chloride 100 Carbon Dioxide 29.0 Anion Gap 8 BUN 15 Creatinine 0.66 Estim Creat Clear Calc 41.09 Est GFR (MDRD) Af Amer 111 Est GFR (MDRD) Non-Af 92 BUN/Creatinine Ratio 22.8 H Glucose 108 H Calcium 8.4 L Troponin I High Sens 27 B-Natriuretic Peptide 86.8 ABG Data ABG results: ABG 04/25/24 12:15 Specimen Type ALBERT Sample Site Not entered VBG pH 7.33 VBG pO2 90 H VBG HCO3 29 H VBG Total CO2 30 VBG O2 Sat (Calc) 96 H VBG Base Excess 3 POC Mix VBG pCO2 Pt Tmp 54.0 H O2 Delivery Device Not entered Radiography Diagnostic Testing: Clinical Impression(s) from Imaging Studies Chest X-Ray 04/25/24 11:57 IMPRESSION: Hyperinflation and COPD. No acute infiltrate is seen. Electronically Signed: Kai Jara MD at 13:09 EST , Discharge Plan Dx/Rx/DC Orders Clinical Impression: COPD (chronic obstructive pulmonary disease), Hypoxia Disposition Disposition: Acute Care Hospital [facility]
--- NOTE | 2024-04-25 12:01 | ED.RN ---
patricia ashley states working on copd workup not infectious workup
[2024-04-25] MEDS: MethylPREDNISolone 125 MG/2 ML Vial IV (12:16)
[2024-04-25 12:19] LABS: Absolute Lymphocyte Count 1.08 X10^3/uL (0.83-4.51); Absolute Neutrophil Count 6.2 X10^3/uL (2.0-7.7); Basophil# 0.01 X10^3/uL; Basophil% 0.1 % (0-1); Hematocrit 38.6 % (37-47); Hemoglobin 12.9 g/dL (12.0-15.0); Lymphocyte # 1.08 X10^3/ul (0.83-4.51); Lymphocyte % 13.2 % (19-41); Mean Corp Hgb Conc 33.4 g/dL (32-36); Mean Corpuscular Hgb 30.7 pg (27.0-32.0); Mean Corpuscular Volume 91.9 fL (81-99); Mean Platelet Vol. 9.5 fl (6.2-12.0); NRBC Flagged by Analyzer 0 % (0-5); Neutrophil # 6.18 X10^3/uL (2.7-7.7); Neutrophil % 75.3 % (47-70); Platelet Count 301 K/mm3 (150-450); RBC Distribution Width CV 14.6 % (11.6-14.6); RBC Distribution Width SD 49.5 fl (35.1-43.9); White Blood Count 8.2 K/mm3 (4.4-11.0)
[2024-04-25 12:19] LABS: Blood Gas Specimen Type VEN; O2 Delivery Device Not entered; SITE Not entered; VBG BASE EXCESS 3 mmol/L (-1.0-3.5); VBG Bicarbonate 29 mmol/L (22-26); VBG PO2 90 mmHg (25-40); VBG SO2 96 % (50-70); VBG TCO2 30 mmol/L (23-33); VBG pH 7.33 (7.32-7.42)
[2024-04-25] MEDS: Albuterol 2.5 MG/3 ML VIAL.NEB. 5 MG INHALATION (12:22)
[2024-04-25] MEDS: Ipratropium/Albuterol Sulfate 3 ML AMPUL.NEB INHALATION ×3 (12:22→23:22)
[2024-04-25 12:40] LABS: Anion Gap 8 (5-15); BUN 15 mg/dL (7-18); BUN/Creat Ratio 22.8 RATIO (10-20); Calcium,Total 8.4 mg/dL (8.5-10.1); Chloride 100 mmol/L (98-107); Creatinine, Serum 0.66 mg/dL (0.55-1.02); EST Glomerular Filtration Rate 92 mL/min (>60); Est Glom Filt Rate - Afr Amer 111 mL/min (>60); Estimated Creatinine Clearance 41.09 ml/min; Glucose 108 mg/dL (74-106); Potassium 3.8 mmol/L (3.5-5.1); Sodium Level 136 mmol/L (136-145); Troponin-I HS 27 pg/mL (3.0-54.0)
[2024-04-25 12:41] LABS: BNP,B-Type NATRIURETIC PEPTIDE 86.8 pg/mL (0-100)
--- NOTE | 2024-04-25 17:53 | PCM.HP.STD ---
HPI - General General Date of Admission: 04/25/24 Date of Service: 04/25/24 Chief Complaint: Increasing SOB HPI Narrative JAVIER BARRON, is a 70-year-old female history of COPD on 2 L nasal cannula nightly, hypertension, hypothyroidism presented [facility] ED 04/25/2024 with increasing shortness of breath and cough for 2 to 3 days.? She has also been needing oxygen more recently and had not been on it continuously in 8 weeks.? Workup fairly benign but patient was 86% on room air and has not been wearing oxygen, she is placed back on 2 L and it was deemed she had COPD exacerbation.? Patient given breathing treatments and steroids in the ED and hospitalist contacted for admission. Patient evaluated at bedside and reports the increased shortness of breath and cough over the past several days since she got her flu shot. Her cough is productive and also notes she only wears 2 L of nasal cannula at bedtime but has been wearing it all the time over the past couple of days. Also has a bit of a headache and a sore throat. Has a little bit of lower extremity swelling which she reports she gets when she has COPD exacerbations. No fevers or chills, no chest pain. ROS otherwise negative [facility] Medical History (Updated 04/25/24 @ 16:55 by Kiana Landry) Abducens nerve palsy Age-related macular degeneration Alcohol use COPD (chronic obstructive pulmonary disease) COPD (chronic obstructive pulmonary disease) Former light cigarette smoker (1-9 per day) Former smoker Hypertension Hypertension Hyponatremia Hypothyroidism Hypothyroidism Leukopenia Mixed hyperlipidemia On home oxygen therapy Osteoarthritis Osteopenia Osteoporosis Peripheral edema Pulmonary nodule Uterine prolapse Vitamin D deficiency Home Medications ?Medication ?Instructions ?Recorded ?Last Taken ?Type calcium carbonate 500 mg PO DAILY 07/25/23 09/26/23 History multivitamin 1 tab PO DAILY 07/25/23 Unknown History cholecalciferol (vitamin D3) 25 25 mcg PO DAILY 08/02/23 Unknown History mcg (1,000 unit) tablet thiamine HCl (vitamin B1) 100 mg 200 mg PO DAILY 08/02/23 09/25/23 History tablet potassium chloride 20 mEq 20 meq PO DAILY #90 tabs 10/18/23 Unknown Rx tablet,extended release albuterol sulfate 2.5 mg/3 mL 2.5 mg (3 mL) inhalation Q4H PRN 11/29/23 Unknown Rx (0.083 %) solution for nebulization shortness of breath or wheezing #180 mL albuterol sulfate 90 mcg/actuation 2 puff inhalation Q6H PRN 11/30/23 Unknown Rx aerosol inhaler (Ventolin HFA) shortness of breath or wheezing #8.5 grams fluticasone fur. 200 mcg-umeclid 1 inh inhalation Q24H breathing #3 12/18/23 Unknown Rx 62.5 mcg-vilant 25 mcg ea inhalat.powder (Trelegy Ellipta) levothyroxine 100 mcg tablet 100 mcg PO DAILY thyroid #90 tabs 03/06/24 Unknown Rx ipratropium 0.5 mg-albuterol 3 mg 3 ml inhalation Q4H PRN PRN SOB 04/09/24 Unknown Rx (2.5 mg base)/3 mL nebulization &/OR WHEEZING #180 mL soln furosemide 40 mg tablet 40 mg PO DAILY #90 tabs 04/14/24 Unknown Rx losartan 100 mg tablet 100 mg PO DAILY blood pressure #90 04/15/24 Unknown Rx tabs Allergy/AdvReac Type Severity Reaction Status Date / Time No Known Allergies Allergy Verified 04/14/24 13:25 Family History Father COPD (chronic obstructive pulmonary disease) Sister COPD (chronic obstructive pulmonary disease) History of blood clots Hypertension Osteoporosis Mother Lung cancer Hypertension Other Thyroid disorder Surgical History H/O adenoidectomy H/O colonoscopy History of bilateral ligation of fallopian tubes Hx of tonsillectomy Social History Smoking Status: Former smoker how long ago did patient quit smokin years ago alcohol intake: current alcohol intake frequency: a few times a week substance use type: does not use caffeine: Yes Type: coffee Number of servings: 3 what type of physical activity do you participate in: walking and other details: EZ step frequency: 3-4 times per week seatbelt use: always do you feel safe at home: Yes ROS ROS Narrative General: Denies fever/chills HENT: Some headache and sore throat EYES: Denies changes in vision Resp: Increasing productive cough and increasing shortness of breath Cardiac: Denies chest pain GI: Denies abdominal pain, denies changes in bowel, denies nausea/vomiting : Denies changes in urination Extremity: Little bit of swelling in bilateral lower extremities which she reports happens during COPD exacerbations MSK: Denies weakness Neuro: Denies any numbness/tingling Heme: Denies any bleeding or bruising Skin: Denies rashes Psychiatric: No complaints voiced Vital Signs Vital Signs Vital Signs: 04/25/24 11:44 04/25/24 11:44 04/25/24 11:57 Temperature 99.3 F H Temperature Source Temporal Pulse Rate 114 H 108 H Respiratory Rate 28 H 32 H Respiratory Effort Respiratory Depth Respiratory Pattern Blood Pressure 165/140 H Blood Pressure Mean 148 Pulse Ox 87 94 Oxygen Delivery Method Nasal Cannula Nasal Cannula Room Air Oxygen Flow Rate (L/min) 2 4 3 04/25/24 11:58 04/25/24 12:15 04/25/24 12:15 Temperature Temperature Source Pulse Rate 103 H Respiratory Rate 26 H Respiratory Effort Short of Breath Labored Accessory Muscle Use Pursed Lip Respiratory Depth Shallow Respiratory Pattern Tachypnea Blood Pressure Blood Pressure Mean Pulse Ox 92 Oxygen Delivery Method Nasal Cannula Nasal Cannula Oxygen Flow Rate (L/min) 3 2 04/25/24 13:04 04/25/24 13:05 04/25/24 13:15 Temperature Temperature Source Pulse Rate 100 99 97 Respiratory Rate 31 H 23 H 26 H Respiratory Effort Respiratory Depth Respiratory Pattern Blood Pressure 169/81 H 150/71 H Blood Pressure Mean 110 89 Pulse Ox 96 97 95 Oxygen Delivery Method Room Air Oxygen Flow Rate (L/min) 04/25/24 13:30 04/25/24 13:45 04/25/24 14:00 Temperature Temperature Source Pulse Rate 91 97 100 Respiratory Rate 20 H 30 H 25 H Respiratory Effort Respiratory Depth Respiratory Pattern Blood Pressure 132/70 H 135/66 H 137/71 H Blood Pressure Mean 87 86 85 Pulse Ox 96 96 96 Oxygen Delivery Method Oxygen Flow Rate (L/min) 04/25/24 14:15 04/25/24 14:30 04/25/24 14:45 Temperature Temperature Source Pulse Rate 106 H 99 97 Respiratory Rate 33 H 23 H 20 H Respiratory Effort Respiratory Depth Respiratory Pattern Blood Pressure 133/87 H 136/76 H 140/74 H Blood Pressure Mean 99 93 88 Pulse Ox 96 96 96 Oxygen Delivery Method Oxygen Flow Rate (L/min) 04/25/24 15:00 04/25/24 15:15 04/25/24 16:00 Temperature Temperature Source Pulse Rate 99 107 H 106 H Respiratory Rate 19 H 26 H 17 Respiratory Effort Respiratory Depth Respiratory Pattern Blood Pressure 149/83 H 132/67 H Blood Pressure Mean 95 85 Pulse Ox 96 94 94 Oxygen Delivery Method Nasal Cannula Oxygen Flow Rate (L/min) 3 04/25/24 16:13 Temperature 98.1 F Temperature Source Pulse Rate 107 H Respiratory Rate 26 H Respiratory Effort Respiratory Depth Respiratory Pattern Blood Pressure 132/67 H Blood Pressure Mean 88 Pulse Ox 94 Oxygen Delivery Method Oxygen Flow Rate (L/min) Weight Weight: 44.906 kg Body Mass Index (BMI) 18.1 Physical Exam Narrative General: Alert, oriented HEENT: Atraumatic, normocephalic Eyes: Anicteric, normal conjunctiva, extraocular movements grossly intact Neck: Supple Respiratory: Increased respiratory effort, diminished overall scattered wheezes Cardiovascular: Heart rate low 100s GI: Soft, nontender, nondistended Extremities: Mild nonpitting edema in lower extremities Musculoskeletal: Moving all extremities Neuro: No overt focal neurological deficits Skin: No rashes appreciated Psych: Cooperative Results Lab / Micro Data 04/25/24 12:08 04/25/24 12:08 Labs: Laboratory Results - last 24 hr 04/25/24 12:08: WBC 8.2, RBC 4.20, Hgb 12.9, Hct 38.6, MCV 91.9, MCH 30.7, MCHC 33.4, RDW Std Deviation 49.5 H, RDW Coeff of Sherita 14.6, Plt Count 301, MPV 9.5, Immature Gran % (Auto) 0.400, Neut % (Auto) 75.3 H, Lymph % (Auto) 13.2 L, [place] % (Auto) 11.0 H, Eos % (Auto) 0.0, Baso % (Auto) 0.1, Absolute Neuts (auto) 6.2, Absolute Lymphs (auto) 1.08, Nucleated RBC % 0, Sodium 136, Potassium 3.8, Chloride 100, Carbon Dioxide 29.0, Anion Gap 8, BUN 15, Creatinine 0.66, Estim Creat Clear Calc 41.09, Est GFR (MDRD) Af Amer 111, Est GFR (MDRD) Non-Af 92, BUN/Creatinine Ratio 22.8 H, Glucose 108 H, Calcium 8.4 L, Troponin I High Sens 27, B-Natriuretic Peptide 86.8 Micro: Microbiology 04/25/24 12:10 Mucosa - Nose SARS-CoV-2, Influenza & RSV (PCR) - Final ABG Data ABG results: ABG 04/25/24 12:15 Specimen Type ALBERT Sample Site Not entered VBG pH 7.33 VBG pO2 90 H VBG HCO3 29 H VBG Total CO2 30 VBG O2 Sat (Calc) 96 H VBG Base Excess 3 POC Mix VBG pCO2 Pt Tmp 54.0 H O2 Delivery Device Not entered Imaging Radiology Impression Chest X-Ray 04/25/24 11:57 IMPRESSION: Hyperinflation and COPD. No acute infiltrate is seen. Electronically Signed: Kai Jara MD at 13:09 EST , Assessment & Plan Assessment/Plan (1) Dyspnea on exertion: PLAN: Plan #Acute exacerbation of COPD -Admit to floor, continuous O2 monitoring -Chest x-ray: No acute process ?COVID negative, obtain respiratory panel, sputum culture if able -O2 in place, wean as tolerated -IV methylprednisone -Scheduled DuoNebs -Albuterol prn -Antibiotics: Azithromycin -Incentive spirometer -Mucinex #Hypertension Continue home medications #Hypothyroidism -Continue Synthroid #DVT ppx: Lovenox subcu Jasmin Kaufman MD Time spent in the patient's overall evaluation, decision-making process, review of diagnostic data, adjustment of management, discussion with other providers, nursing and ancillary staff involved in patient's care documentation, 55 Minutes Charges/Coding Visit Charges Inpatient E&M: 68921 Init Hosp L2
[2024-04-25] MEDS: 0.9% Saline Lock 10 ML Syringe IV (23:06)
[2024-04-26] VITALS (11 sets, daily range): BP systolic 136–186; BP diastolic 70–99; PULSE 76–107; RESP 16–24; TEMP 36.1–37; O2SAT 93–99
[2024-04-26] MEDS: Ipratropium/Albuterol Sulfate 3 ML AMPUL.NEB INHALATION ×5 (03:38→19:15)
[2024-04-26] MEDS: Levothyroxine 100 MCG Tablet PO (05:14)
[2024-04-26] MEDS: 0.9% Saline Lock 10 ML Syringe IV ×2 (05:15→21:18)
[2024-04-26 06:57] LABS: Absolute Lymphocyte Count 0.52 X10^3/uL (0.83-4.51); Absolute Neutrophil Count 3.5 X10^3/uL (2.0-7.7); Basophil# 0.01 X10^3/uL; Basophil% 0.2 % (0-1); Hematocrit 36.6 % (37-47); Hemoglobin 12.2 g/dL (12.0-15.0); Lymphocyte # 0.52 X10^3/ul (0.83-4.51); Lymphocyte % 12.1 % (19-41); Mean Corp Hgb Conc 33.3 g/dL (32-36); Mean Corpuscular Volume 89.9 fL (81-99); Mean Platelet Vol. 9.5 fl (6.2-12.0); Monocyte# 0.22 X10^3/uL; Monocyte% 5.1 % (0-10); NRBC Flagged by Analyzer 0 % (0-5); Neutrophil # 3.53 X10^3/uL (2.7-7.7); Neutrophil % 82.4 % (47-70); POSITIVE DIFFERENTIAL YES; Platelet Count 285 K/mm3 (150-450); RBC Distribution Width CV 14.2 % (11.6-14.6); RBC Distribution Width SD 47.2 fl (35.1-43.9); Red Blood Count 4.07 M/mm3 (4.2-5.4); White Blood Count 4.3 K/mm3 (4.4-11.0)
[2024-04-26 07:13] LABS: Anion Gap 5 (5-15); BUN 14 mg/dL (7-18); BUN/Creat Ratio 23.8 RATIO (10-20); Calcium,Total 8.8 mg/dL (8.5-10.1); Chloride 98 mmol/L (98-107); Creatinine, Serum 0.59 mg/dL (0.55-1.02); EST Glomerular Filtration Rate 105 mL/min (>60); Est Glom Filt Rate - Afr Amer 127 mL/min (>60); Estimated Creatinine Clearance 40.81 ml/min; Glucose 137 mg/dL (74-106); Potassium 3.3 mmol/L (3.5-5.1); Sodium Level 134 mmol/L (136-145)
[2024-04-26] MEDS: Azithromycin 250 MG Tablet 500 MG PO (09:23)
[2024-04-26] MEDS: Potassium Chloride Oral Tablet 20 MEQ PO (09:23)
[2024-04-26] MEDS: Furosemide 40 MG Tablet PO (09:24)
[2024-04-26] MEDS: Losartan Potassium 100 MG Tablet PO (09:24)
[2024-04-26] MEDS: Enoxaparin 40 MG/0.4 ML Syringe SC (09:24)
--- NOTE | 2024-04-26 10:35 | CASEMGMT ---
RN CM Face to Face with patient for initial transition planning/care coordination assessment. RN CM introduced self and role at [facility]. Patient lying in bed, alert and oriented, at bedside . Patient willing to participate in assessment and is able to answer all questions appropriately. Care providers, pharmacy, and demographics verified. Strata: 2 PCP: Hermes Specialists: Piotr Berman, after school tutor Preferred Pharmacy: [facility] Insurance: [facility] Prescription Benefit: yes Living Will/HPOA: yes, Crow Lovett LNOK: Living Arrangements: Patient lives with in a 2 story home with bed and bath on first floor. Patient is independent at home. Transportation: self, DME/HHC: Patient has rollator, nebulizer, pulse ox, and home oxygen through [facility] at 2lpm with portability. aware to bring oxygen tank for at discharge. Green sheet on chart of increase in home oxygen. Patient wishes to discharge home, denies need for home health at this time. Patient states he has no further needs or concerns at this time. CM to follow for discharge planning needs that may arise. Disposition Plan: Patient to discharge home with family support and follow-up plans in place. Ivory SERVIN, RN, CM
--- NOTE | 2024-04-26 13:04 | PN.HOSP_ITS ---
Reason for Visit Reason for Visit: Shortness of breath Subjective Subjective Patient is a 78-year-old female with a known history of COPD on chronic oxygen 2 L at night who presented to the emergency department [facility] on 04/25/2020 for with a chief complaint of worsening shortness of breath and cough for about 2 to 3 days. She reported that she also has been requiring more oxygen in that time. And has been on continuous oxygen for about 8 weeks. Patient thought maybe it was related to the flu shot as she had that about 3 days ago. She reported that her cough is productive but no significant change in her sputum from baseline. She complained of concomitant symptoms with a headache and a mild sore throat and felt like she had a little bit of lower extremity swelling which she reports happens as she gets COPD exacerbations. She denied any known fever or chills and no nausea, vomiting or diarrhea. Oxygen saturations in the emergency department were 86% on room air and she was placed on 2 L nasal cannula which improved her oxygen saturation. She was treated with aerosols and steroids and request for admission was made. Vital signs in the emergency department showed a temperature of 99.3, heart rate 114, respiratory rate 28, blood pressure 165/140 and pulse ox was 87% on room air. She was uptitrated to 4 L and have sat of 94%. CBC was overtly unremarkable with some mild monocytosis and a mild left shift with a 75.3% neutrophilia. VBG showed a normal pH. Chemistry panel was overall unremarkable. Troponin was normal at 27 and BNP was only 86.8. Chest x-ray showed hyperinflation with COPD and no acute infiltrates noted. Patient states today she is feeling much better. She stated she was quite wheezy when she presented and that seems to be better. She is only requiring 1 L nasal cannula. We did discuss that she has parainfluenza virus which is not related to the influenza vaccine she had. We did discuss that it is just another type of virus that she got probably out in the community. Objective Data Objective Data Vital Signs: Vital Signs Temp Pulse Resp BP Pulse Ox O2 Del Method O2 Flow Rate 97.5 F L 96 16 186/92 H 96 Nasal Cannula 1 04/26/24 09:19 04/26/24 09:19 04/26/24 09:19 04/26/24 09:19 04/26/24 09:19 04/26/24 10:00 04/26/24 10:00 Oxygen Flow Rate (L/min) 1 Oxygen Delivery Method Nasal Cannula Weight: 44.6 kg Body Mass Index (BMI) 17.9 Lab / Micro Data 04/26/24 06:37 04/26/24 06:37 Labs: Laboratory Results - last 24 hr 04/26/24 06:37: WBC 4.3 L, RBC 4.07 L, Hgb 12.2, Hct 36.6 L, MCV 89.9, MCH 30.0, MCHC 33.3, RDW Std Deviation 47.2 H, RDW Coeff of Sherita 14.2, Plt Count 285, MPV 9.5, Immature Gran % (Auto) 0.200, Neut % (Auto) 82.4 H, Lymph % (Auto) 12.1 L, Upson % (Auto) 5.1, Eos % (Auto) 0.0, Baso % (Auto) 0.2, Absolute Neuts (auto) 3.5, Absolute Lymphs (auto) 0.52 L, Nucleated RBC % 0, Sodium 134 L, Potassium 3.3 L, Chloride 98, Carbon Dioxide 31.0, Anion Gap 5, BUN 14, Creatinine 0.59, Estim Creat Clear Calc 40.81, Est GFR (MDRD) Af Amer 127, Est GFR (MDRD) Non-Af 105, BUN/Creatinine Ratio 23.8 H, Glucose 137 H, Calcium 8.8 Micro: Microbiology 04/25/24 18:21 Mucosa - Nose Respiratory Panel (PCR) - Final Parainfluenza 3 04/25/24 12:10 Mucosa - Nose SARS-CoV-2, Influenza & RSV (PCR) - Final Radiography Diagnostic Testing: Radiology Impression Chest X-Ray 04/25/24 11:57 IMPRESSION: Hyperinflation and COPD. No acute infiltrate is seen. Electronically Signed: Kai Jara MD at 13:09 EST , Physical Exam Const alert, oriented x3 and no apparent distress; Negative for average body habitus, healthy appearing or well nourished Constitutional Narrative: Thin, older, white female, sitting up in bed on 1 L nasal cannula, appears comfortable, nontoxic, does appear older than stated age HEENT head/scalp atraumatic and moist oral mucous membranes HEENT Narrative: Mallampati 1, no thrush Head and Scalp: normocephalic Resp normal respiratory effort, no retractions, no use of accessory muscles and clear to auscultation bilaterally Resp Narrative: No auscultated wheeze at this time however patient is severely diminished diffusely Auscultation: Negative for rales, rhonchi or wheezes Cardio regular rate, regular rhythm, S1 normal heart sound, S2 normal heart sound, no murmurs, no rub, no gallops and no clicks GI normal to inspection, nondistended, normoactive bowel sounds, soft to palpation and non-tender GI Narrative: Abdomen is scaphoid Extremity no clubbing, cyanosis or edema Extremity Narrative: Decreased lean muscle mass Neuro oriented x3, moves all extremities and no focal motor deficits Speech: speech normal Psych affect normal Psych Narrative: Very pleasant, eye contact is good and patient interacts appropriately Assessment & Plan Assessment/Plan (1) Hypoxia: (2) Dyspnea on exertion: (3) COPD with acute exacerbation: (4) Parainfluenza virus infection: PLAN: Plan Acute hypoxia on chronic hypoxic respiratory failure secondary to COPD exacerbation due to parainfluenza virus infection -Will continue azithromycin for anti-inflammatory purposes -Patient not really producing any sputum -Continue as needed and scheduled DuoNebs -continue Solu-Medrol 40 every 8 and will transition to slow prednisone taper at discharge -Continue oxygen-has been weaned to 1 L nasal cannula -Will do pulse ox at rest and with ambulation prior to discharge to assess oxygen needs at the time of discharge -Hold home inhalers and restart at discharge -Continue home diuretics -Continue I-S -Add Acapella -Continue Mucinex Essential hypertension -Continue home losartan -Continue home Lasix Hypothyroidism -Continue home Synthroid Suspected severe malnutrition -Dietitian is following -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
[2024-04-26] MEDS: Ensure Plus High Protein 120 ML LIQUID PO ×3 (14:09→21:18)
[2024-04-26] MEDS: Potassium Chloride Oral Tablet 20 MEQ 40 MEQ PO (16:06)
[2024-04-27] VITALS (13 sets, daily range): BP systolic 134–202; BP diastolic 78–105; PULSE 75–113; RESP 16–24; TEMP 36.5–36.9; O2SAT 88–99
[2024-04-27] MEDS: Ipratropium/Albuterol Sulfate 3 ML AMPUL.NEB INHALATION ×6 (03:08→23:03)
[2024-04-27 05:47] LABS: Hematocrit 36.5 % (37-47); Hemoglobin 12.1 g/dL (12.0-15.0); Mean Corp Hgb Conc 33.2 g/dL (32-36); Mean Corpuscular Hgb 29.9 pg (27.0-32.0); Mean Corpuscular Volume 90.1 fL (81-99); Mean Platelet Vol. 9.5 fl (6.2-12.0); Platelet Count 295 K/mm3 (150-450); RBC Distribution Width CV 14.4 % (11.6-14.6); RBC Distribution Width SD 47.9 fl (35.1-43.9); Red Blood Count 4.05 M/mm3 (4.2-5.4); White Blood Count 6.1 K/mm3 (4.4-11.0)
[2024-04-27] MEDS: 0.9% Saline Lock 10 ML Syringe IV ×2 (05:51→21:02)
[2024-04-27] MEDS: Levothyroxine 100 MCG Tablet PO (05:51)
[2024-04-27 05:59] LABS: Anion Gap 5 (5-15); BUN 19 mg/dL (7-18); BUN/Creat Ratio 34.1 RATIO (10-20); Calcium,Total 8.9 mg/dL (8.5-10.1); Chloride 97 mmol/L (98-107); Creatinine, Serum 0.56 mg/dL (0.55-1.02); EST Glomerular Filtration Rate 112 mL/min (>60); Est Glom Filt Rate - Afr Amer 135 mL/min (>60); Estimated Creatinine Clearance 40.81 ml/min; Glucose 145 mg/dL (74-106); Potassium 4.2 mmol/L (3.5-5.1); Sodium Level 134 mmol/L (136-145)
--- NOTE | 2024-04-27 08:27 | CPS ---
Pt instructed to do SMI and Pep on own
[2024-04-27] MEDS: Carvedilol 6.25 MG Tablet PO ×2 (09:09→21:02)
[2024-04-27] MEDS: Ensure Plus High Protein 120 ML LIQUID PO ×2 (09:10→14:59)
[2024-04-27] MEDS: Enoxaparin 40 MG/0.4 ML Syringe SC (09:10)
[2024-04-27] MEDS: guaiFENesin 1,200 MG Tablet 1200 MG PO ×2 (09:10→21:02)
[2024-04-27] MEDS: Potassium Chloride Oral Tablet 20 MEQ PO (09:10)
[2024-04-27] MEDS: Losartan Potassium 100 MG Tablet PO (09:10)
[2024-04-27] MEDS: Furosemide 40 MG Tablet PO (09:10)
[2024-04-27] MEDS: Azithromycin 250 MG Tablet 500 MG PO (09:11)
--- NOTE | 2024-04-27 11:21 | CPS ---
Pt states she will do pep and SMI on her own
--- NOTE | 2024-04-27 12:46 | PCM.PN.HOSP ---
Reason for Visit Reason for Visit: Shortness of breath Subjective Subjective Patient states that her breathing continues to feel better but she still feels pretty significantly weak. Is a bit nervous about going home due to her weakness currently. We did an ambulatory pulse ox and her sats were fine at rest on room air however she did require 2 L with exertion at the current time. She does have oxygen at baseline at home. Objective Data Objective Data Vital Signs: Vital Signs Temp Pulse Resp BP Pulse Ox O2 Del Method O2 Flow Rate 98.1 F 79 18 134/78 H 94 Nasal Cannula 2 04/27/24 12:10 04/27/24 12:10 04/27/24 12:10 04/27/24 12:10 04/27/24 12:10 04/27/24 12:10 04/27/24 12:10 Oxygen Flow Rate (L/min) [ 2 AMBULATING with Oxygen #2] Oxygen Flow Rate (L/min) [ 1 AMBULATING with Oxygen #1] Oxygen Flow Rate (L/min) [ 0 AMBULATING on Room Air] Oxygen Flow Rate (L/min) [At 0 REST on Room Air] Oxygen Flow Rate (L/min) 2 Oxygen Delivery Method Nasal Cannula Weight: 44.6 kg Body Mass Index (BMI) 17.9 Intake & Output: Intake and Output for Last 24 Hours 04/25/24 04/26/24 04/27/24 23:59 23:59 23:59 Intake Total 240 / 240 Balance 240 / 240 Lab / Micro Data 04/27/24 05:18 04/27/24 05:18 Labs: Laboratory Results - last 24 hr 04/27/24 05:18: WBC 6.1, RBC 4.05 L, Hgb 12.1, Hct 36.5 L, MCV 90.1, MCH 29.9, MCHC 33.2, RDW Std Deviation 47.9 H, RDW Coeff of Sherita 14.4, Plt Count 295, MPV 9.5, Sodium 134 L, Potassium 4.2, Chloride 97 L, Carbon Dioxide 32.0, Anion Gap 5, BUN 19 H, Creatinine 0.56, Estim Creat Clear Calc 40.81, Est GFR (MDRD) Af Amer 135, Est GFR (MDRD) Non-Af 112, BUN/Creatinine Ratio 34.1 H, Glucose 145 H, Calcium 8.9 Micro: Microbiology 04/25/24 18:21 Mucosa - Nose Respiratory Panel (PCR) - Final Parainfluenza 3 04/25/24 12:10 Mucosa - Nose SARS-CoV-2, Influenza & RSV (PCR) - Final Physical Exam Const alert, oriented x3 and no apparent distress; Negative for average body habitus, healthy appearing or well nourished Constitutional Narrative: Thin, older, white female, walking around room independently on 2 L nasal cannula, appears fatigued and a little more tired than yesterday. HEENT head/scalp atraumatic and moist oral mucous membranes HEENT Narrative: No thrush, Mallampati 1 Head and Scalp: normocephalic Resp normal respiratory effort, no retractions, no use of accessory muscles and clear to auscultation bilaterally Resp Narrative: Remains diffusely diminished with no adventitious sounds Auscultation: Negative for rales, rhonchi or wheezes Cardio regular rate, regular rhythm, S1 normal heart sound, S2 normal heart sound, no murmurs, no rub, no gallops and no clicks GI normal to inspection, nondistended, normoactive bowel sounds, soft to palpation and non-tender GI Narrative: Abdomen is scaphoid Extremity no clubbing, cyanosis or edema Extremity Narrative: Decreased lean muscle mass Neuro oriented x3, moves all extremities and no focal motor deficits Speech: speech normal Psych affect normal Psych Narrative: Very pleasant, eye contact is good and patient interacts appropriately Assessment & Plan Assessment/Plan (1) Hypoxia: (2) Dyspnea on exertion: (3) COPD with acute exacerbation: (4) Parainfluenza virus infection: PLAN: Plan Acute hypoxia on chronic hypoxic respiratory failure secondary to COPD exacerbation due to parainfluenza virus infection -Will continue azithromycin for anti-inflammatory purposes -Patient not really producing any sputum -Continue as needed and scheduled DuoNebs -continue Solu-Medrol 40 every 8 and will transition to slow prednisone taper at discharge -Per ambulatory pulse ox today patient did not require any oxygen at rest but 2 L with exertion -Hold home inhalers and restart at discharge -Continue home diuretics -Continue I-S -Continue Acapella -Continue Mucinex Generalized weakness/fatigue -Patient still feels a bit worn down and weak -Will keep another 24 hours to improve her strength that she does go home alone -Continue PT/OT -Encourage out of bed Hypokalemia -Replaced yesterday -Resolved Steroid-induced hyperglycemia -Blood sugars are elevated but not out of control -Monitor fasting a.m. 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
[2024-04-28 03:00] VITALS: BP 144/90; PULSE 79; RESP 18; TEMP 36.8; O2SAT 95
[2024-04-28] MEDS: Ipratropium/Albuterol Sulfate 3 ML AMPUL.NEB INHALATION ×3 (03:30→10:56)
[2024-04-28 03:31] VITALS: PULSE 77; RESP 22; O2SAT 93
[2024-04-28 05:33] LABS: Hematocrit 40.7 % (37-47); Hemoglobin 13.3 g/dL (12.0-15.0); Mean Corp Hgb Conc 32.7 g/dL (32-36); Mean Corpuscular Hgb 29.6 pg (27.0-32.0); Mean Corpuscular Volume 90.6 fL (81-99); Mean Platelet Vol. 9.2 fl (6.2-12.0); Platelet Count 366 K/mm3 (150-450); RBC Distribution Width CV 14.2 % (11.6-14.6); RBC Distribution Width SD 47.8 fl (35.1-43.9); Red Blood Count 4.49 M/mm3 (4.2-5.4); White Blood Count 6.6 K/mm3 (4.4-11.0)
[2024-04-28] MEDS: 0.9% Saline Lock 10 ML Syringe IV (05:40)
[2024-04-28] MEDS: Levothyroxine 100 MCG Tablet PO (05:40)
[2024-04-28 05:56] LABS: Anion Gap 5 (5-15); BUN 22 mg/dL (7-18); BUN/Creat Ratio 34.6 RATIO (10-20); Calcium,Total 9.1 mg/dL (8.5-10.1); Chloride 95 mmol/L (98-107); Creatinine, Serum 0.64 mg/dL (0.55-1.02); EST Glomerular Filtration Rate 96 mL/min (>60); Est Glom Filt Rate - Afr Amer 116 mL/min (>60); Estimated Creatinine Clearance 40.81 ml/min; Glucose 109 mg/dL (74-106); Potassium 4.2 mmol/L (3.5-5.1); Sodium Level 135 mmol/L (136-145)
[2024-04-28 06:50] VITALS: PULSE 80; RESP 22; O2SAT 90
[2024-04-28 06:56] VITALS: O2SAT 86; O2SAT 87; O2SAT 92; O2SAT 94
[2024-04-28 07:58] VITALS: BP 167/64; PULSE 80; RESP 18; TEMP 36.6; O2SAT 96
[2024-04-28] MEDS: guaiFENesin 1,200 MG Tablet 1200 MG PO (09:25)
[2024-04-28] MEDS: Enoxaparin 40 MG/0.4 ML Syringe SC (09:25)
[2024-04-28] MEDS: Carvedilol 6.25 MG Tablet PO (09:26)
[2024-04-28] MEDS: Furosemide 40 MG Tablet PO (09:26)
[2024-04-28] MEDS: Azithromycin 250 MG Tablet 500 MG PO (09:26)
[2024-04-28] MEDS: Potassium Chloride Oral Tablet 20 MEQ PO (09:33)
[2024-04-28 10:55] VITALS: PULSE 76; RESP 20; O2SAT 98
[2024-04-28] MEDS: Losartan Potassium 100 MG Tablet PO (10:57)
--- NOTE | 2024-04-28 12:12 | PCM.DC ---
Discharge Instructions Diet Discharge Diet: No restrictions Activity Discharge Activity: Return to Normal Activity Weight Bearing Status: Full weight bearing Follow Up Care Test Results: Test results from this visit will be discussed in further detail at your follow-up appointment, if applicable. Discharge Plan Admission Admit Date/Time: 04/25/24 17:53 Primary Reason for Your Visit: Exacerbation of COPD due to parainfluenza 3 virus Attending Provider: Isac Tovar Primary Care Provider: Angelica Mirza Consulting Providers: Jasmin Kaufman; Peri Bauman Instructions Additional Instructions / Restrictions: 2 liters at all times Discharge Orders/Prescriptions Prescriptions: New carvedilol 6.25 mg Tablet 6.25 mg PO BID Qty: 60 0RF prednisone 20 mg tablet 20 mg PO BID Qty: 11 0RF Rx Instructions: 1 twice a day for 3 days, then 1/day for 3 days, then one half a day for 4 days then discontinue Continued calcium carbonate 500 mg calcium (1,250 mg) tablet 500 mg PO DAILY cholecalciferol (vitamin D3) 25 mcg (1,000 unit) tablet 25 mcg PO DAILY thiamine HCl (vitamin B1) 100 mg tablet 200 mg PO DAILY ipratropium-albuterol 0.5 mg-3 mg(2.5 mg base)/3 mL solution for nebulization 3 ml inhalation Q4H PRN PRN (Reason: SOB &/OR WHEEZING) Qty: 180 6RF furosemide 40 mg tablet 40 mg PO DAILY Qty: 90 3RF multivitamin Tablet 1 tab PO DAILY potassium chloride 20 mEq tablet extended release 20 meq PO DAILY Qty: 90 3RF albuterol sulfate 2.5 mg /3 mL (0.083 %) solution for nebulization 2.5 mg inhalation Q4H PRN (Reason: shortness of breath or wheezing) Qty: 180 11RF albuterol sulfate [Ventolin HFA] 90 mcg/actuation HFA aerosol inhaler 2 puff inhalation Q6H PRN (Reason: shortness of breath or wheezing) Qty: 8.5 11RF Trelegy Ellipta 200-62.5-25 mcg blister with device 1 inh INHALATION Q24H Qty: 3 3RF levothyroxine 100 mcg tablet 100 mcg PO DAILY Qty: 90 1RF losartan 100 mg tablet 100 mg PO DAILY Qty: 90 0RF Referrals / Follow Up: Angelica Mirza MD [Primary Care Provider] - Kayla Morel NP-C [Med Staff - [facility]] - Disposition Disposition (needs filled in before D/C Order can be placed): Home, Self Care
--- NOTE | 2024-04-28 12:24 | PCM.DC.SUM ---
Providers Date of Admission: 04/25/24 Date of Discharge: 04/28/24 Primary Care Physician: Dr. Angelica Mirza MD Reason For Visit: COPD EXACERBATION, HYPOXIA Diagnosis Discharge Diagnosis (1) Hypoxia: Status: Acute Code(s): R09.02 - Hypoxemia (2) Dyspnea on exertion: Status: Acute Code(s): R06.09 - Other forms of dyspnea (3) COPD with acute exacerbation: Status: Chronic Code(s): J44.1 - Chronic obstructive pulmonary disease with (acute) exacerbation (4) Parainfluenza virus infection: Status: Acute Code(s): B34.8 - Other viral infections of unspecified site Plan 1. Acute exacerbation of COPD secondary to parainfluenza virus infection of the lungs #2 hypokalemia #3 essential hypertension #4 hypothyroidism #5 chronic hypoxic respiratory failure Medications at Discharge Home Medications calcium carbonate 500 mg PO DAILY supplement 07/25/23 multivitamin 1 tab PO DAILY supplement 07/25/23 cholecalciferol (vitamin D3) 25 mcg (1,000 unit) tablet 25 mcg PO DAILY supplement 08/02/23 thiamine HCl (vitamin B1) 100 mg tablet 200 mg PO DAILY supplement 08/02/23 potassium chloride 20 mEq tablet,extended release 20 meq PO DAILY supplement #90 tabs 10/18/23 albuterol sulfate 2.5 mg/3 mL (0.083 %) solution for nebulization 2.5 mg (3 mL) inhalation Q4H PRN shortness of breath or wheezing #180 mL 11/29/23 albuterol sulfate 90 mcg/actuation aerosol inhaler (Ventolin HFA) 2 puff inhalation Q6H PRN shortness of breath or wheezing #8.5 grams 11/30/23 fluticasone fur. 200 mcg-umeclid 62.5 mcg-vilant 25 mcg inhalat.powder (Trelegy Ellipta) 1 inh inhalation Q24H breathing #3 ea 12/18/23 levothyroxine 100 mcg tablet 100 mcg PO DAILY thyroid #90 tabs 03/06/24 ipratropium 0.5 mg-albuterol 3 mg (2.5 mg base)/3 mL nebulization soln 3 ml inhalation Q4H PRN PRN SOB &/OR WHEEZING #180 mL 04/09/24 furosemide 40 mg tablet 40 mg PO DAILY water pill #90 tabs 04/14/24 losartan 100 mg tablet 100 mg PO DAILY blood pressure #90 tabs 04/15/24 carvedilol 6.25 mg tablet 6.25 mg PO BID #60 tabs 04/28/24 prednisone 20 mg tablet 20 mg PO BID #11 tabs 04/28/24 Hospital Course Operations None Procedures None Summary of Care Provided Minutes Spent on Discharge: 31 Hospital Course: This 78-year-old white female was seen in the emergency room at [facility] with complaints of increasing shortness of breath over the last 2 to 3 days with cough. Patient is on chronic oxygen at home at night. Workup in the emergency room revealed the patient's pulse ox on room air to be 86%, chest x-ray did not show any evidence of infiltrate or acute process, white blood cell count was normal and chemistry profile was unremarkable. Patient was admitted to PCU, she was placed on IV corticosteroids and scheduled aerosol treatments, the Zithromax was given, respiratory panel revealed the patient to have parainfluenza 3 virus. Patient improved during her hospitalization. On 04/28/2024, patient was seen and examined: On examination she appeared in good health and spirits, she does not appear to be in any distress. Vital signs as documented. Skin warm and dry and without overt rashes. Neck without JVD, thyroid appears normal, trachea is midline, neck is supple. Lungs clear, normal air movement was noted. Heart exam notable for regular rhythm, normal sounds and absence of murmurs, rubs or gallops. Abdomen unremarkable and without evidence of organomegaly, masses, or abdominal aortic enlargement, bowel sounds are present in all 4 quadrants, no abdominal tenderness was noted. Extremities nonedematous, no cyanosis was noted, no clubbing was noted. Neuro: Cranial nerves II through XII are grossly intact, no focal motor deficits were noted, sensation to light touch and pinprick is intact, motor exam 5/5 throughout. Psych: Patient is alert and oriented x3, she does not appear anxious or depressed, she does not appear agitated. Patient appears stable for discharge home on 04/28/2024. Weight / BMI Weight Weight: 44.6 kg Body Mass Index (BMI) 17.9 ABG / Lab / Microbiology Data 04/28/24 05:11 04/28/24 05:11 Laboratory: Laboratory Results - last 24 hr 04/28/24 05:11: WBC 6.6, RBC 4.49, Hgb 13.3, Hct 40.7, MCV 90.6, MCH 29.6, MCHC 32.7, RDW Std Deviation 47.8 H, RDW Coeff of Sherita 14.2, Plt Count 366, MPV 9.2, Sodium 135 L, Potassium 4.2, Chloride 95 L, Carbon Dioxide 36.0 H, Anion Gap 5, BUN 22 H, Creatinine 0.64, Estim Creat Clear Calc 40.81, Est GFR (MDRD) Af Amer 116, Est GFR (MDRD) Non-Af 96, BUN/Creatinine Ratio 34.6 H, Glucose 109 H, Calcium 9.1 Microbiology: Microbiology 04/25/24 18:21 Mucosa - Nose Respiratory Panel (PCR) - Final Parainfluenza 3 04/25/24 12:10 Mucosa - Nose SARS-CoV-2, Influenza & RSV (PCR) - Final D/C Instructions Discharge Diet: No restrictions Weight Bearing Status: Full weight bearing Meaningful Use Info Meaningful Use Meaningful Use Diagnoses (Choose all that apply): None applicable Ischemic Stroke Statin Dosing Therapy Reference: STATIN DOSE THERAPY REFERENCE: * Patients > 75 years receive moderate or high dose statin therapy. * Patients 75 years or YOUNGER should receive HIGH intensity statin dose unless contraindicated. You will be required to document reason for non-treatment if statin daily dose does not meet guidelines. HIGH DOSE STATIN THERAPY DAILY Atorvastatin > than or = to 40 mg Rosuvastatin > than or = to 20 mg Amlodipine + Atorvastatin > than or = to 2.5/40 mg Ezetimibe + Simvastatin 10/80 mg Simvastatin 80mg Discharge Plan Admission Admit Date/Time: 04/25/24 17:53 Primary Reason for Your Visit: Exacerbation of COPD due to parainfluenza 3 virus Attending Provider: Isac Tovar Primary Care Provider: Angelica Mirza Consulting Providers: Jasmin Kaufman; Peri Bauman Instructions Additional Instructions / Restrictions: 2 liters at all times Discharge Orders/Prescriptions Prescriptions: New carvedilol 6.25 mg Tablet 6.25 mg PO BID Qty: 60 0RF prednisone 20 mg tablet 20 mg PO BID Qty: 11 0RF Rx Instructions: 1 twice a day for 3 days, then 1/day for 3 days, then one half a day for 4 days then discontinue Continued calcium carbonate 500 mg calcium (1,250 mg) tablet 500 mg PO DAILY cholecalciferol (vitamin D3) 25 mcg (1,000 unit) tablet 25 mcg PO DAILY thiamine HCl (vitamin B1) 100 mg tablet 200 mg PO DAILY ipratropium-albuterol 0.5 mg-3 mg(2.5 mg base)/3 mL solution for nebulization 3 ml inhalation Q4H PRN PRN (Reason: SOB &/OR WHEEZING) Qty: 180 6RF furosemide 40 mg tablet 40 mg PO DAILY Qty: 90 3RF multivitamin Tablet 1 tab PO DAILY potassium chloride 20 mEq tablet extended release 20 meq PO DAILY Qty: 90 3RF albuterol sulfate 2.5 mg /3 mL (0.083 %) solution for nebulization 2.5 mg inhalation Q4H PRN (Reason: shortness of breath or wheezing) Qty: 180 11RF albuterol sulfate [Ventolin HFA] 90 mcg/actuation HFA aerosol inhaler 2 puff inhalation Q6H PRN (Reason: shortness of breath or wheezing) Qty: 8.5 11RF Trelegy Ellipta 200-62.5-25 mcg blister with device 1 inh INHALATION Q24H Qty: 3 3RF levothyroxine 100 mcg tablet 100 mcg PO DAILY Qty: 90 1RF losartan 100 mg tablet 100 mg PO DAILY Qty: 90 0RF Referrals / Follow Up: Angelica Mirza MD [Primary Care Provider] - Kayla Morel NP-C [Med Staff - [facility] Practice [facility]] - Disposition Disposition (needs filled in before D/C Order can be placed): Home, Self Care Charges/Coding Visit Charges Inpatient E&M: 76438 Disch Hosp >30min
--- NOTE | 2024-04-28 13:20 | CASEMGMT ---
Patient has order for discharge. Patient is requiring increase in home oxygen order. Script received and updated referral sent to [facility] via [facility]. RN CM in to discuss needs at discharge with patient. RN CM updated patient regardin oxygen increase. Patient states will bring POC from home for at discharge. Patient denied further needs or concerns at discharge. Patient had no further questions or concerns.
--- NOTE | 2024-04-28 14:57 | PHA.DC.MR.R ---
Pharmacy [place] Med Reconciliation Pharmacy Service has performed discharge medication reconciliation for this patient. Medication education papers prepared, patient discharged when counseling was attempted. The patient's discharge medication list was reviewed for discrepancies and discrepancies were resolved. Medications at Discharge Home Medications calcium carbonate 500 mg PO DAILY supplement 07/25/23 multivitamin 1 tab PO DAILY supplement 07/25/23 cholecalciferol (vitamin D3) 25 mcg (1,000 unit) tablet 25 mcg PO DAILY supplement 08/02/23 thiamine HCl (vitamin B1) 100 mg tablet 200 mg PO DAILY supplement 08/02/23 potassium chloride 20 mEq tablet,extended release 20 meq PO DAILY supplement #90 tabs 10/18/23 albuterol sulfate 2.5 mg/3 mL (0.083 %) solution for nebulization 2.5 mg (3 mL) inhalation Q4H PRN shortness of breath or wheezing #180 mL 11/29/23 albuterol sulfate 90 mcg/actuation aerosol inhaler (Ventolin HFA) 2 puff inhalation Q6H PRN shortness of breath or wheezing #8.5 grams 11/30/23 fluticasone fur. 200 mcg-umeclid 62.5 mcg-vilant 25 mcg inhalat.powder (Trelegy Ellipta) 1 inh inhalation Q24H breathing #3 ea 12/18/23 levothyroxine 100 mcg tablet 100 mcg PO DAILY thyroid #90 tabs 03/06/24 ipratropium 0.5 mg-albuterol 3 mg (2.5 mg base)/3 mL nebulization soln 3 ml inhalation Q4H PRN PRN SOB &/OR WHEEZING #180 mL 04/09/24 furosemide 40 mg tablet 40 mg PO DAILY water pill #90 tabs 04/14/24 losartan 100 mg tablet 100 mg PO DAILY blood pressure #90 tabs 04/15/24 carvedilol 6.25 mg tablet 6.25 mg PO BID #60 tabs 04/28/24 prednisone 20 mg tablet 20 mg PO BID #11 tabs 04/28/24
== END 2024-04-28 13:45 | disposition home or self-care (01) | DRG 190 ==
LOC: ED 15:34 → PCU 16:54
PROVIDERS: Internal Medicine; Nurse Practitioner; Admitting Provider Internal Medicine; Emergency Provider Surgery; PCP Internal Medicine; Visit Provider Internal Medicine
DX: J44.1 Chronic obstructive pulmonary disease with (acute) exacerbation (principal); E43 Unspecified severe protein-calorie malnutrition; J96.21 Acute and chronic respiratory failure with hypoxia; Z68.1 Body mass index [BMI] 19.9 or less, adult; I10 Essential (primary) hypertension; E03.9 Hypothyroidism, unspecified; T38.0X5A Adverse effect of glucocorticoids and synthetic analogues, initial encounter; R73.9 Hyperglycemia, unspecified; B34.8 Other viral infections of unspecified site; Z87.891 Personal history of nicotine dependence; Z79.899 Other long term (current) drug therapy; Z79.51 Long term (current) use of inhaled steroids
CPT/HCPCS: 36415; 71046; 80048; 82803; 83880; 84484; 85025; 85027; 87631; 87633; 93005; 94640; 94668; 99252; 99285; A4216; G0463

== ENCOUNTER → 2024-09-05 | Outpatient (CLI) | payer MEDICARE, SELFPAY ==
[2022-12-08 08:40] VITALS: BMI 19.7
[2024-09-05 12:55] LABS: Absolute Lymphocyte Count 1.04 X10^3/uL (0.83-4.51); Absolute Neutrophil Count 2.2 X10^3/uL (2.0-7.7); Basophil# 0.01 X10^3/uL; Basophil% 0.3 % (0-1); Hematocrit 42.7 % (37-47); Hemoglobin 14.2 g/dL (12.0-15.0); Lymphocyte # 1.04 X10^3/ul (0.83-4.51); Lymphocyte % 26.9 % (19-41); Mean Corp Hgb Conc 33.3 g/dL (32-36); Mean Corpuscular Hgb 30.1 pg (27.0-32.0); Mean Corpuscular Volume 90.7 fL (81-99); Mean Platelet Vol. 9.9 fl (6.2-12.0); Monocyte# 0.58 X10^3/uL; NRBC Flagged by Analyzer 0 % (0-5); Neutrophil # 2.22 X10^3/uL (2.7-7.7); Neutrophil % 57.5 % (47-70); Platelet Count 383 K/mm3 (150-450); RBC Distribution Width SD 50.4 fl (35.1-43.9); Red Blood Count 4.71 M/mm3 (4.2-5.4); White Blood Count 3.9 K/mm3 (4.4-11.0)
[2024-09-05 13:24] LABS: ALB/GLOB Ratio 1.7 RATIO (0.9-2.4); AST(SGOT) 28 U/L (<=31); Alanine Aminotransfer ALT/SGPT 19 U/L (<=34); Albumin, Serum 4.2 g/dL (3.4-4.8); Alkaline Phosphatase 109 U/L (35-104); Anion Gap 11 (5-15); BUN 17 mg/dL (4-19); BUN/Creat Ratio 25.6 RATIO (10-20); Calcium,Total 9.7 mg/dL (7.6-11.0); Carbon Dioxide 29.8 mmol/L (21.0-32.0); Chloride 101 mmol/L (98-108); Creatinine, Serum 0.67 mg/dL (0.70-1.20); EST Glomerular Filtration Rate 89 (>60); Globulin 2.5 g/dL (2.2-4.2); Glucose 91 mg/dL (70-99); Potassium 3.9 mmol/L (3.3-5.1); Protein, Total 6.8 g/dL (5.9-8.4); Sodium Level 141 mmol/L (133-145)
[2024-09-05 16:13] LABS: Cholesterol 206 mg/dL (<=200); High Density Lipoprotein 121 mg/dL; Low Density Lipoprotein Calc. 72 mg/dL; Triglycerides 64 mg/dL; Very Low Density Lipoprotein 13 mg/dL (5-40)
== END | disposition home or self-care (01) ==
PROVIDERS: PCP Nurse Practitioner Family; Visit Provider Nurse Practitioner Family
DX: E03.9 Hypothyroidism, unspecified (principal); E78.5 Hyperlipidemia, unspecified; I10 Essential (primary) hypertension
CPT/HCPCS: 36415; 80053; 80061; 84439; 84443; 85025

== ENCOUNTER → 2024-11-06 | Outpatient (CLI) | payer MEDICARE, SELFPAY ==
[2022-12-08 08:40] VITALS: BMI 19.7
--- NOTE | 2024-11-06 13:52 | BD_ITS ---
PROCEDURE: DEXA BONE DENSITY STUDY 11/06/2024 REASON FOR EXAM: F, age 79 y/o . Postmenopausal. TECHNIQUE: DXA scan of sites with data reported below. REFERENCE LINKS: ISCD Adult Positions COMPARISON: None FINDINGS: BMD and T-SCORES Lumbar spine: 0.767 g/cm2, T-score -2.5 Levels: L1 through L4 Left femoral neck: 0.563 g/cm2, T-score -2.6 Femoral neck comparison data not recommended for monitoring change. Left total hip: 0.618 g/cm2, T-score -2.7 Right femoral neck: 0.529 g/cm2, T-score -2.9 Femoral neck comparison data not recommended for monitoring change. Right total hip: 0.620 g/cm2, T-score -2.0 The World Health Organization has defined the following categories based on bone density: Normal bone density: T-score equal to or greater than -1.0 Osteopenia: T-score between -1.0 and -2.5 Osteoporosis: T-score equal to or less than -2.5 The patient does meet the pharmacological treatment recommendations for prevention of osteoporosis. BD/Dexa Bone Density Study IMPRESSION: OSTEOPOROSIS. Recommend follow-up as clinically warranted. Reading Location: [place] [id number]
== END | disposition home or self-care (01) ==
PROVIDERS: PCP Nurse Practitioner Family; Referring Provider Nurse Practitioner Family; Visit Provider Nurse Practitioner Family
DX: M81.0 Age-related osteoporosis without current pathological fracture (principal)
CPT/HCPCS: 77080

== ENCOUNTER → 2025-06-04 | Outpatient (CLI) | payer MEDICARE, SELFPAY ==
[2022-12-08 08:40] VITALS: BMI 19.7
== END | disposition home or self-care (01) ==
LOC: PSN 11:04
PROVIDERS: PCP Nurse Practitioner Family; Referring Provider Nurse Practitioner Acute Care; Visit Provider Nurse Practitioner Acute Care
DX: R50.9 Fever, unspecified (principal)
CPT/HCPCS: 87631